=== PATIENT | female | born 1930 | race Caucasian/White ===

== ENCOUNTER 2016-11-18 09:28 | Inpatient (IN) | payer MEDICARE, SELFPAY ==
[2016-11-18] MEDS ORDERED: Sodium Chloride 0.9% 1000 ML 1,000 ML IV SCH ×2 (09:45→10:00)
--- NOTE | 2016-11-18 09:54 | ERPHSYRPT ---
- History of Present Illness Time Seen by Provider: 11/18/16 09:37 Source: patient Exam Limitations: no limitations Patient Subjective Stated Complaint: PT REPORTS INCEASED NONPRODUCTIVE COUGH BEGINNING A FEW DAYS [id number] THAT SHE HAS HX OF FALLING BUT DENIES RECENT FALLS-STATES IT IS HARD TO GET THE SPUTUM UP-PT STATES SHE FEELS VERY WEAK Triage Nursing Assessment: PT PINK WARM ET DRY-ALERT ANSWERING QUESTIONS CORRECTLY-HARSH COUGH NOTED DURING TRIAGE-LUNGS CLEAR-RESP NONLABORED-PT MOVING ALL EXTREMITIES WITH EASE Physician History: This is an 86-year-old white female who was recently released She arrives with complaint of having a constant cough which has been going on for 2 months she states that this is worse for the past 2-3 weeks she states it is nonproductive she cannot give anything up. She has had a sore throat. She states that she is extremely weak. She apparently could not get to the door to let the medics in today and had called the medics because of her weakness. She denies fever she denies chest pain she states she really doesn't feel short of breath but she continues to cough and feels extremely weak she has no nausea no vomiting. Past medical history includes cataracts, hypothyroidism, arthritis, fractures, osteoarthritis. Past surgical history includes right hip arthroplasy, cholecystectomy, joint replacement, right shoulder surgery Timing/Duration: week(s) (chronic cough worse at past 2-3 weeks weak for the past 2-3 weeks progressively worse) Severity: moderate Modifying Factors: Worsens With: cold therapy, eating, immobilization, medication, movement, acetaminophen, ibuprofen Associated Symptoms: cough, malaise, weakness, other (sore throat), No nausea, No vomiting, No abdominal pain, No shortness of breath, No heartburn, No diaphoresis, No chills, No chest pain, No fever, No headaches, No loss of appetite, No rash, No syncope, No seizure Allergies/Adverse Reactions: codeine Adverse Reaction (Verified 11/18/16 09:34) Nausea Home Medications: Alprazolam 0.25 mg [xanAX 0.25 MG] 0.25 mg PO TID 04/18/13 [History] Ropinirole HCl [Requip] 2 mg PO HS 04/18/13 [History] Tramadol HCl 50 mg [Ultram 50 mg] 50 mg PO BID 04/18/13 [History] Levothyroxine Sodium 75 Mcg [Synthroid 75 Mcg] 75 mcg PO DAILY 01/26/15 [ History] Duloxetine HCl 30 mg [Cymbalta 30 MG Capsule] 30 mg PO BID 11/18/16 [ History] Hx Tetanus, Diphtheria Vaccination/Date Given: No Hx Influenza Vaccination/Date Given: Yes Hx Pneumococcal Vaccination/Date Given: Yes - Review of Systems Constitutional: Malaise, Weakness, No Fever, No Chills, No Fatigue, No Lethargy , No Night Sweats, No Weight Loss Eyes: No Symptoms, No Discharge, No Eye Pain, No Eye Redness, No Itchy, No Photophobia, No Tearing, No Vision Changes, No Double Vision, No Foreign Body Sensation Ears, Nose, & Throat: No Ear Pain, No Ear Discharge, No Hearing Changes, No Tinnitus, No Nose Pain, No Nose Congestion, No Nose Discharge, No Sinus Drainage , No Epistaxis, No Mouth Pain, No Mouth Swelling, No Loose Teeth, No Throat Pain , No Throat Swelling, No Hoarse, No Painful Swallowing, No Snoring, No Stridor Respiratory: Cough, No Cyanosis, No Dyspnea, No Dyspnea on Exertion ([place]), No Stridor, No Wheezing Cardiac: No Chest Pain, No Edema, No Syncope Abdominal/Gastrointestinal: No Abdominal Pain, No Nausea, No Vomiting, No Diarrhea Genitourinary Symptoms: No Dysuria Musculoskeletal: No Back Pain, No Neck Pain Skin: No Rash Neurological: No Dizziness, No Focal Weakness, No Sensory Changes Psychological: No Symptoms Endocrine: No Symptoms All Other Systems: Reviewed and Negative - Past Medical History Pertinent Past Medical History: Yes Neurological History: No Pertinent History ENT History: Cataracts Cardiac History: No Pertinent History Respiratory History: Other Endocrine Medical History: Hypothyroidism Musculoskeletal History: Arthritis, Fractures, Osteoarthritis GI Medical History: No Pertinent History History: No Pertinent History Psycho-Social History: No Pertinent History Female Reproductive Disorders: No Pertinent History Other Medical History: dropfoot right foot - Past Surgical History Past Surgical History: Yes Neuro Surgical History: No Pertinent History Cardiac: No Pertinent History Respiratory: No Pertinent History Gastrointestinal: Cholecystectomy Genitourinary: No Pertinent History Musculoskeletal: Joint Replacement Female Surgical History: No Pertinent History Other Surgical History: R HIP. - Social History Smoking Status: Never smoker Exposure to second hand smoke: Yes Drug Use: none Patient Lives Alone: No - Female History Hx Now: No - Nursing Vital Signs Nursing Vital Signs: Initial Vital Signs Temperature 98.9 F Temperature Source Oral Pulse Rate 60 Respiratory Rate 22 Blood Pressure [] 126/59 Pain Intensity 0 - Physical Exam General Appearance: no apparent distress, other (well-developed thin white female does not appear to be in acute distress) Eye Exam: PERRL/EOMI, eyes nml inspection Ears, Nose, Throat Exam: normal ENT inspection, TMs normal, pharynx normal, moist mucous membranes Neck Exam: normal inspection, non-tender, supple, full range of motion Respiratory Exam: other (lungs scattered wheezes) Cardiovascular Exam: regular rate/rhythm, normal heart sounds, normal peripheral pulses Gastrointestinal/Abdomen Exam: soft, normal bowel sounds, No tenderness, No mass Back Exam: normal inspection, normal range of motion, No CVA tenderness, No vertebral tenderness Extremity Exam: normal inspection, normal range of motion, pelvis stable Neurologic Exam: alert, oriented x 3, cooperative, normal mood/affect, nml cerebellar function, nml station & gait, sensation nml, No motor deficits Skin Exam: normal color, warm, dry, No rash Lymphatic Exam: No adenopathy SpO2 Interpretation: normal (95%) SpO2: 95 Oxygen Delivery: Room Air - Course Nursing assessment & vital signs reviewed: Yes EKG Interpreted by Me: RATE (60 bpm), Sinus Rhythm, NORMAL AXIS, Other (EKG, normal sinus rhythm 60 bpm normal axis no acute ST or T wave changes noted) - Radiology Exams Chest X-ray Interpretation: Discussed w/ radiologist (no acute cardiopulmonary abnormalities) Ordered Tests: Active Orders 24 hr Category Date Time Status Slps STAT Care 11/18/16 09:45 Active EKG-ER Only STAT Care 11/18/16 09:44 Active IV Insertion STAT Care 11/18/16 09:44 Active CHEST 1 VIEW (PORTABLE) Stat Exams 11/18/16 09:45 Completed AMYLASE Stat Lab 11/18/16 10:16 Completed BLOOD CULTURE Stat Lab 11/18/16 12:05 Received CBC W DIFF Stat Lab 11/18/16 10:16 Completed CMP Stat Lab 11/18/16 10:16 Completed CULTURE, THROAT Stat Lab 11/18/16 10:16 Received CULTURE,URINE Stat Lab 11/18/16 11:10 Received LIPASE Stat Lab 11/18/16 10:16 Completed Manual Differential NC Stat Lab 11/18/16 10:16 Completed NT PRO BNP Stat Lab 11/18/16 10:16 Completed STREP SCREEN-BETA A Stat Lab 11/18/16 10:16 Completed TROPONIN Stat Lab 11/18/16 10:16 Completed UA W/ MICROSCOPIC Stat Lab 11/18/16 11:10 Completed Transfer Order Routine Transfer 11/18/16 12:41 Ordered Medication Summary Generic Name Dose Route Start Last Admin Trade Name Freq PRN Reason Stop Dose Admin Sodium Chloride 1,000 mls @ 50 mls/hr 11/18/16 09:45 11/18/16 09:49 Sodium Chloride 0.9% 1000 Ml IV 12/18/16 09:44 Not Given .Q20H PACO Sodium Chloride 1,000 mls @ 75 mls/hr 11/18/16 10:00 11/18/16 11:04 Sodium Chloride 0.9% 1000 Ml IV 12/18/16 09:59 75 mls/hr .[id number] PACO Administration Discontinued Medications Generic Name Dose Route Start Last Admin Trade Name Freq PRN Reason Stop Dose Admin Sodium Chloride Confirm 11/18/16 11:03 Sodium Chloride 0.9% 1000 Ml Administered 11/18/16 11:04 Dose 1,000 mls @ ud .ROUTE .STK-MED ONE Ceftriaxone Sodium/Dextrose 50 mls @ 100 mls/hr 11/18/16 11:52 11/18/16 12:11 Rocephin 1 Gm-D5w 50 Ml Bag IV 11/18/16 12:21 100 mls/hr STAT ONE Administration Ceftriaxone Sodium/Dextrose Confirm 11/18/16 12:07 Rocephin 1 Gm-D5w 50 Ml Bag Administered 11/18/16 12:08 Dose 50 mls @ ud IV .STK-MED ONE Lab/Rad Data: Laboratory Result Diagrams 11/18/16 10:16 11/18/16 10:16 Laboratory Results 11/18/16 11/18/16 11/18/16 Range/Units 11:10 10:16 10:16 WBC (4.0-10.5) K/mm3 RBC (4.1-5.4) M/mm3 Hgb (12.0-16.0) gm/dl Hct (35-47) % MCV (78-100) fl MCH (26-32) pg MCHC (32-36) g/dl RDW (11.5-14.0) % Plt Count (150-450) K/mm3 MPV (6-9.5) fl Segmented Neutrophils (36.0-66.0) % Band Neutrophils (0.0-2.0) % Lymphocytes (Manual) (24-44) % Monocytes (Manual) (0.0-12.0) % Eosinophils (Manual) (0.00-3.0) % Differential Comment Platelet Estimate (NORMAL) Sodium (136-145) mEq/L Potassium (3.5-5.1) mEq/L Chloride (98-107) mEq/L Carbon Dioxide (21-32) mEq/L Anion Gap (5-15) MEQ/L BUN (9-20) mg/dL Creatinine (0.55-1.30) mg/dl Estimated GFR ML/MIN Glucose (70-110) MG/DL Calcium (8.5-10.1) mg/dL Total Bilirubin (0.2-1.0) mg/dL AST (15-37) U/L ALT (12-78) U/L Alkaline Phosphatase (46-116) U/L Troponin I (0.000-0.056) ng/ml NT-Pro-B Natriuret Pep (0-450) pg/ml Serum Total Protein (6.4-8.2) gm/dL Albumin (3.4-5.0) g/dL Amylase (25-115) U/L Lipase (73-393) U/L Ur Collection Type VOID Urine Color YELLOW (YELLOW) Urine Appearance CLOUDY (CLEAR) Urine pH 6.0 (5-6) Ur Specific [place] 1.025 (1.005-1.025) Urine Protein TRACE (Negative) Urine Glucose (UA) NEGATIVE (NEGATIVE) mg/dL Urine Ketones NEGATIVE (NEGATIVE) Urine Nitrite POSITIVE (NEGATIVE) Urine Bilirubin NEGATIVE (NEGATIVE) Urine Urobilinogen 1 (0-1) mg/dL Urine WBC (Auto) SMALL (NEGATIVE) Urine RBC (Auto) TRACE-INTACT (0-5) [place]/ul Urine Microscopic RBC 0-2 (0-2) /HPF Urine Microscopic WBC 25-50 (0-5) /HPF Ur Epithelial Cells RARE (FEW) /HPF Urine Bacteria MANY (NEGATIVE) /HPF Influenza Type A Ag NEGATIVE (NEGATIVE) Influenza Type B Ag NEGATIVE (NEGATIVE) RSV (PCR) POSITIVE (Negative) Streptococcus Screen NEGATIVE (Negative) Specimen Received 11/18/16 1110 11/18/16 11/18/16 11/18/16 Range/Units 10:16 10:16 10:16 WBC 5.3 (4.0-10.5) K/mm3 RBC 4.25 (4.1-5.4) M/mm3 Hgb 11.6 L (12.0-16.0) gm/dl Hct 37.4 (35-47) % MCV 88.0 (78-100) fl MCH 27.2 (26-32) pg MCHC 31.0 L (32-36) g/dl RDW 15.8 H (11.5-14.0) % Plt Count 235 (150-450) K/mm3 MPV 8.8 (6-9.5) fl Segmented Neutrophils 51 (36.0-66.0) % Band Neutrophils 1 (0.0-2.0) % Lymphocytes (Manual) 41 (24-44) % Monocytes (Manual) 2 (0.0-12.0) % Eosinophils (Manual) 5 H (0.00-3.0) % Differential Comment NORMAL Platelet Estimate NORMAL (NORMAL) Sodium 138 (136-145) mEq/L Potassium 3.9 (3.5-5.1) mEq/L Chloride 103 (98-107) mEq/L Carbon Dioxide 29.1 (21-32) mEq/L Anion Gap 10.2 (5-15) MEQ/L BUN 14 (9-20) mg/dL Creatinine 1.09 (0.55-1.30) mg/dl Estimated GFR 50 ML/MIN Glucose 89 (70-110) MG/DL Calcium 8.2 L (8.5-10.1) mg/dL Total Bilirubin 0.2 (0.2-1.0) mg/dL AST 22 (15-37) U/L ALT 10 L (12-78) U/L Alkaline Phosphatase 112 (46-116) U/L Troponin I < 0.017 (0.000-0.056) ng/ml NT-Pro-B Natriuret Pep 785 H (0-450) pg/ml Serum Total Protein 7.0 (6.4-8.2) gm/dL Albumin 2.9 L (3.4-5.0) g/dL Amylase 61 (25-115) U/L Lipase 147 (73-393) U/L Ur Collection Type Urine Color (YELLOW) Urine Appearance (CLEAR) Urine pH (5-6) Ur Specific [place] (1.005-1.025) Urine Protein (Negative) Urine Glucose (UA) (NEGATIVE) mg/dL Urine Ketones (NEGATIVE) Urine Nitrite (NEGATIVE) Urine Bilirubin (NEGATIVE) Urine Urobilinogen (0-1) mg/dL Urine WBC (Auto) (NEGATIVE) Urine RBC (Auto) (0-5) Denilson/ul Urine Microscopic RBC (0-2) /HPF Urine Microscopic WBC (0-5) /HPF Ur Epithelial Cells (FEW) /HPF Urine Bacteria (NEGATIVE) /HPF Influenza Type A Ag (NEGATIVE) Influenza Type B Ag (NEGATIVE) RSV (PCR) (Negative) Streptococcus Screen (Negative) Specimen Received - Progress Progress: improved Progress Note: 11/18/16 12:07 Patient breathing better after DuoNeb treatment. Patient with 25-50 white cells per high-power field. Patient also had a positive RSV test negative influenza. Case is discussed with Dr. Kahn. She requested physical therapy consult with this patient. (Patient has been worried about falling) Will place patient on observation telemetry continue Rocephin, begin Zithromax. Continue duo neb treatments. - Departure Time of Disposition: 12:08 Departure Disposition: Observation Clinical Impression: Weakness, Bronchitis UTI (urinary tract infection) Qualifiers: Urinary tract infection type: site unspecified Hematuria presence: without hematuria Qualified Code(s): N39.0 - Urinary tract infection, site not specified Condition: Fair Critical Care Time: No Referrals: ANUEL KAHN [Primary Care Provider] -
--- NOTE | 2016-11-18 10:08 | XRAY ---
Indication: Cough. Comparison: January 26, 2015. Portable chest clear again with right lung volume loss, right base scarring, osteopenia, and old right rib fractures. Heart is not enlarged. No new/acute cardiopulmonary abnormalities.
[2016-11-18 10:21] LABS: Mean Platelet Volume 8.8 fl (6-9.5); Platelet Count 235 K/mm3 (150-450); Red Blood Count 4.25 M/mm3 (4.1-5.4); Red Cell Distribution Width 15.8 % (11.5-14.0); White Blood Count 5.3 K/mm3 (4.0-10.5)
[2016-11-18 10:38] LABS: Mean Corpuscular Hemoglobin 27.2 pg (26-32)
[2016-11-18 10:41] LABS: ALBUMIN 2.9 g/dL (3.4-5.0); ALKALINE PHOSPHATASE 112 U/L (46-116); ANION GAP 10.2 MEQ/L (5-15); BILIRUBIN,TOTAL 0.2 mg/dL (0.2-1.0); BLOOD UREA NITROGEN 14 mg/dL (9-20); CHLORIDE 103 mEq/L (98-107); Carbon Dioxide 29.1 mEq/L (21-32); Glucose 89 MG/DL (70-110); LIPASE 147 U/L (73-393); Potassium 3.9 mEq/L (3.5-5.1); SGOT/AST 22 U/L (15-37); SGPT/ALT 10 U/L (12-78); SODIUM 138 mEq/L (136-145)
[2016-11-18 10:46] LABS: TROPONIN < 0.017 ng/ml (0.000-0.056)
[2016-11-18 10:47] LABS: BAND 1 % (0.0-2.0); Eosinophil 5 % (0.00-3.0); Platelet Estimate NORMAL (NORMAL); Total Cells Counted 100
[2016-11-18] MEDS ORDERED: Sodium Chloride 0.9% 1000 ML 1,000 ML ONE (11:03)
[2016-11-18 11:14] LABS: COMPLETE URINE MICROSCOPIC? YES; Collection Type VOID
[2016-11-18 11:33] LABS: Bacteria MANY /HPF (NEGATIVE); Epithelial Cells RARE /HPF (FEW); WBC 25-50 /HPF (0-5)
[2016-11-18] MEDS ORDERED: ROCEPHIN 1 Gm-D5w 50 ml Bag** 50 ML IV ONE ×2 (11:52→12:07)
[2016-11-18] MEDS ORDERED: DUONEB 0.5-3 MG/3 ml Neb IH PRN (13:15)
[2016-11-18] MEDS: Sodium Chloride 0.9% 1000 ML 1,000 ML IV SCH (14:20)
[2016-11-18] MEDS: Zithromax 500 MG/ 250 ML NaCl Premix 250 ML IV SCH (14:20)
[2016-11-18] MEDS ORDERED: ULTRAM 50 MG PO PRN (17:13)
[2016-11-18] MEDS ORDERED: HYDROCODONE-ACETAMIN 2.5-108/5 ML SOLUTION PO PRN (17:15)
[2016-11-18] MEDS: xanAX 0.25 MG PO PRN (20:45)
[2016-11-18] MEDS ORDERED: ROPINIROLE HCL 3 MG PO SCH (22:00)
[2016-11-18] MEDS: REQUIP 2MG TAB PO SCH (22:08)
[2016-11-18] MEDS: Cymbalta 30 MG Capsule PO SCH (22:09)
[2016-11-19] MEDS: ZOFRAN ODT 4 MG PO PRN ×3 (01:11→13:22)
[2016-11-19] MEDS: xanAX 0.25 MG PO PRN ×2 (05:22→14:34)
[2016-11-19] MEDS: SYNTHROID 75 MCG PO SCH (05:22)
[2016-11-19 05:38] LABS: Mean Cell Volume 87.5 fl (78-100); Mean Platelet Volume 9.1 fl (6-9.5); Platelet Count 207 K/mm3 (150-450); Red Blood Count 3.99 M/mm3 (4.1-5.4); Red Cell Distribution Width 15.4 % (11.5-14.0); White Blood Count 4.6 K/mm3 (4.0-10.5)
[2016-11-19 05:57] LABS: ALBUMIN 2.6 g/dL (3.4-5.0); ALKALINE PHOSPHATASE 106 U/L (46-116); ANION GAP 10.4 MEQ/L (5-15); BILIRUBIN,TOTAL 0.2 mg/dL (0.2-1.0); BLOOD UREA NITROGEN 9 mg/dL (9-20); CHLORIDE 105 mEq/L (98-107); Carbon Dioxide 24.2 mEq/L (21-32); Glucose 105 MG/DL (70-110); Potassium 3.8 mEq/L (3.5-5.1); SGOT/AST 22 U/L (15-37); SGPT/ALT 7 U/L (12-78); SODIUM 136 mEq/L (136-145); Total Protein 6.5 gm/dL (6.4-8.2)
[2016-11-19 06:39] LABS: Platelet Estimate NORMAL (NORMAL); Poikilocytosis 1+; Total Cells Counted 100
--- NOTE | 2016-11-19 09:09 | PCM.HP ---
History of Present Illness - Chief Complaint Chief Complaint: UTI, weakness, cough, +RSV History of Present Illness: is a 86 year old female pt of mine from [facility] who has been feeling ill for the past 2 weeks with cough and weakness. She has not been eating well. She called the office yesterday, was unable to get out of bed. Nurse called police/EMS and she was brought to the ER and admitted. Found to be influenza neg but RSV +. - Review of Systems Constitutional: Chills, Fatigue Ears, Nose, & Throat: Other ([place]) Respiratory: Cough Cardiac: No Chest Pain Abdominal/Gastrointestinal: Appetite Changes Musculoskeletal: Arthralgias (hands bilat) Psychological: Anxiety, No Suicidal Ideations Medications & Allergies Home Medications: Home Medication List Alprazolam 0.25 mg [xanAX 0.25 MG] 0.25 mg PO TID PRN 04/18/13 [History Confirmed 11/18/16] Ropinirole HCl [Requip] 3 mg PO HS 04/18/13 [History Confirmed 11/18/16] Tramadol HCl 50 mg [Ultram 50 mg] 50 mg PO BID PRN 04/18/13 [History Confirmed 11/18/16] Levothyroxine Sodium 75 Mcg [Synthroid 75 Mcg] 75 mcg PO DAILY 01/26/15 [ History Confirmed 11/18/16] Duloxetine HCl 30 mg [Cymbalta 30 MG Capsule] 30 mg PO BID 11/18/16 [ History Confirmed 11/18/16] Hydrocodone/Acetaminophen [Hydrocodone-Acetamin 2.5-108/5 ml Solution] 15 ml PO TID PRN 11/18/16 [History Confirmed 11/18/16] Ondansetron [Zofran Odt] 4 mg SL Q4H PRN 11/18/16 [History Confirmed 11/18/16] Allergies/Adverse Reactions: Allergies Allergy/AdvReac Type Severity Reaction Status Date / Time codeine AdvReac Nausea Verified 11/18/16 09:34 - Past Medical History Past Medical History: Yes Neurological History: No Pertinent History ENT History: Cataracts Cardiac History: No Pertinent History Respiratory History: Other Endocrine Medical History: Hypothyroidism Musculoskelatal History: Arthritis, Fractures, Osteoarthritis GI Medical History: No Pertinent History History: No Pertinent History Pyscho-Social History: No Pertinent History Reproductive Disorders: No Pertinent History Comment: dropfoot right foot - Female History Are you now?: No - Past Surgical History Past Surgical History: Yes Neuro Surgical History: No Pertinent History Cardiac History: No Pertinent History Respiratory Surgery: No Pertinent History GI Surgical History: Cholecystectomy Genitourinary Surgical Hx: No Pertinent History Musculskeletal Surgical Hx: Joint Replacement Female Surgical History: No Pertinent History Other Surgical History: R HIP. - Social History Smoking Status: Never smoker Exposure to second hand smoke: Yes Alcohol: None Drug Use: none - Physical Exam Vital Signs: Vital Signs - 24 hr Temp Pulse Resp BP Pulse Ox 11/19/16 07:54 98.1 F 76 18 141/66 94 L 11/19/16 07:15 77 20 94 L 11/19/16 04:00 98.4 F 72 20 132/86 99 11/19/16 02:11 98 11/19/16 00:06 89 L 11/19/16 00:00 98.6 F 72 20 132/82 95 11/18/16 20:00 98.8 F 80 20 127/90 89 L 11/18/16 16:00 97.5 F 63 16 143/63 96 11/18/16 15:24 70 16 96 11/18/16 13:47 98.1 F 61 16 135/60 93 L 11/18/16 12:45 95 11/18/16 12:11 60 22 126/59 96 11/18/16 10:24 64 22 125/57 95 11/18/16 09:29 98.9 F 67 22 134/46 95 Oxygen-Last 24 hours O2 Percentage 4 Liters = 36% General Appearance: no apparent distress, thin Neurologic Exam: alert, oriented x 3, cooperative, other ([place]) Eye Exam: eyes nml inspection Neck Exam: normal inspection Respiratory Exam: diminished breath sounds, No crackles/rales, No rhonchi, No wheezing Cardiovascular Exam: regular rate/rhythm, normal heart sounds, murmur (II/ sys murmur) Gastrointestinal/Abdomen Exam: soft, normal bowel sounds, No tenderness, No distention, No guarding Extremity Exam: normal inspection, No pedal edema, No swelling Skin Exam: normal color, warm, dry, No rash Results - Labs Lab/Micro Results: Lab Results-Last 24 Hours 11/19/16 11/19/16 Range/Units 05:15 05:15 WBC 4.6 (4.0-10.5) K/mm3 RBC 3.99 L (4.1-5.4) M/mm3 Hgb 10.8 L (12.0-16.0) gm/dl Hct 34.9 L (35-47) % MCV 87.5 (78-100) fl MCH 27.0 (26-32) pg MCHC 30.9 L (32-36) g/dl RDW 15.4 H (11.5-14.0) % Plt Count 207 (150-450) K/mm3 MPV 9.1 (6-9.5) fl Segmented Neutrophils 81 H (36.0-66.0) % Lymphocytes (Manual) 18 L (24-44) % Monocytes (Manual) 1 (0.0-12.0) % Platelet Estimate NORMAL (NORMAL) Poikilocytosis 1+ Sodium 136 (136-145) mEq/L Potassium 3.8 (3.5-5.1) mEq/L Chloride 105 (98-107) mEq/L Carbon Dioxide 24.2 (21-32) mEq/L Anion Gap 10.4 (5-15) MEQ/L BUN 9 (9-20) mg/dL Creatinine 0.80 (0.55-1.30) mg/dl Estimated GFR > 60 ML/MIN Glucose 105 (70-110) MG/DL Calcium 8.2 L (8.5-10.1) mg/dL Total Bilirubin 0.2 (0.2-1.0) mg/dL AST 22 (15-37) U/L ALT 7 L (12-78) U/L Alkaline Phosphatase 106 (46-116) U/L Serum Total Protein 6.5 (6.4-8.2) gm/dL Albumin 2.6 L (3.4-5.0) g/dL - Other Procedures and Tests Respiratory Therapy 11/18/16 15:21 Respiratory Nebulizer UD 11/19/16 00:06 Oxygen NASAL CANNULA 2 lpm Assessment/Plan (1) UTI (urinary tract infection) Current Visit: Yes Status: Acute Qualifiers: Urinary tract infection type: site unspecified Hematuria presence: without hematuria Qualified Code(s): N39.0 - Urinary tract infection, site not specified Assessment & Plan: ON IV rocephin, UCx pending. Code(s): N39.0 - URINARY TRACT INFECTION, SITE NOT SPECIFIED (2) Bronchitis Current Visit: Yes Status: Acute Assessment & Plan: Added zithromax to rocephin in the case of atypical pneumonia. Code(s): J40 - BRONCHITIS, NOT SPECIFIED ACUTE OR CHRONIC (3) Weakness Current Visit: Yes Status: Acute Assessment & Plan: PT to consult. Code(s): R53.1 - WEAKNESS
[2016-11-19] MEDS: Cymbalta 30 MG Capsule PO SCH ×2 (09:47→21:40)
[2016-11-19] MEDS: ROCEPHIN 1 Gm-D5w 50 ml Bag** 50 ML IV SCH (09:47)
[2016-11-19] MEDS: xanAX 0.5 MG PO SCH ×2 (09:48→21:41)
[2016-11-19] MEDS: Zithromax 500 MG/ 250 ML NaCl Premix 250 ML IV SCH (13:22)
[2016-11-19] MEDS: Sodium Chloride 0.9% 1000 ML 1,000 ML IV SCH (13:26)
[2016-11-19] MEDS: REQUIP 2MG TAB PO SCH (21:39)
[2016-11-20] MEDS: Sodium Chloride 0.9% 1000 ML 1,000 ML IV SCH ×2 (05:45→22:54)
[2016-11-20] MEDS: SYNTHROID 75 MCG PO SCH (05:45)
[2016-11-20] MEDS: ROCEPHIN 1 Gm-D5w 50 ml Bag** 50 ML IV SCH (10:35)
[2016-11-20] MEDS: Cymbalta 30 MG Capsule PO SCH ×2 (10:35→22:54)
--- NOTE | 2016-11-20 11:23 | PCM.NOTE ---
Date and Time: 11/20/16 1121 Subjective Assessment: She is breathing better today, feeling better. Yesterday didn't feel well enough to do PT. - Review of Systems Constitutional: Weakness, No Fever, No Chills Objective Exam General Appearance: no apparent distress Neurologic Exam: alert, oriented x 3, cooperative Skin Exam: normal color, warm, dry Respiratory Exam: diminished breath sounds, No crackles/rales, No rhonchi, No wheezing Cardiovascular Exam: regular rate/rhythm, normal heart sounds Extremity Exam: No pedal edema, No swelling Back Exam: normal inspection OBJECTIVE DATA Vital Signs: Vital Signs - 24 hr Temp Pulse Resp BP Pulse Ox 11/20/16 07:38 98.3 F 68 20 121/91 97 11/20/16 07:00 97 11/20/16 04:00 98.3 F 76 20 135/65 95 11/20/16 00:00 98.4 F 63 22 124/63 94 L 11/19/16 22:20 63 22 94 L 11/19/16 20:00 98.6 F 58 L 20 121/57 98 11/19/16 16:00 98.2 F 74 17 124/60 96 11/19/16 12:00 97.8 F 73 19 148/64 92 L Pain Assessment - Last Documented Pain Intensity 0 Pain Scale Used 0-10 Pain Scale Intake and Output: Intake & Output 11/17/16 11/18/16 11/19/16 11/20/16 11:59 11:59 11:59 11:59 Intake Total 2854 2643 Output Total 1800 500 Balance 1054 2143 Weight 46.748 kg Assessment/Plan (1) UTI (urinary tract infection) Current Visit: Yes Status: Acute Qualifiers: Urinary tract infection type: site unspecified Hematuria presence: without hematuria Qualified Code(s): N39.0 - Urinary tract infection, site not specified Assessment & Plan: on IV antibiotics, doing better Code(s): N39.0 - URINARY TRACT INFECTION, SITE NOT SPECIFIED (2) Bronchitis Current Visit: Yes Status: Acute Assessment & Plan: improved Code(s): J40 - BRONCHITIS, NOT SPECIFIED ACUTE OR CHRONIC (3) Weakness Current Visit: Yes Status: Acute Assessment & Plan: would like PT opinion, if she is doing ok would be able to d/c, but may be another few days. Code(s): R53.1 - WEAKNESS
[2016-11-20] MEDS: Zithromax 500 MG/ 250 ML NaCl Premix 250 ML IV SCH (13:25)
[2016-11-20] MEDS: xanAX 0.25 MG PO PRN (14:42)
[2016-11-20] MEDS: REQUIP 2MG TAB PO SCH (22:54)
[2016-11-20] MEDS: xanAX 0.5 MG PO SCH (22:54)
[2016-11-21] MEDS: SYNTHROID 75 MCG PO SCH (06:06)
[2016-11-21] MEDS: ROCEPHIN 1 Gm-D5w 50 ml Bag** 50 ML IV SCH (08:16)
[2016-11-21] MEDS: Cymbalta 30 MG Capsule PO SCH (08:16)
--- NOTE | 2016-11-21 08:49 | PCM.NOTE ---
Date and Time: 11/21/16 0845 Subjective Assessment: Pt did well with PT yesterday. She is feeling well, sergey po well, breathing well. Her urine culture results were delayed, and her blood culture came back positive (results pending). - Review of Systems Constitutional: No Fever, No Chills Respiratory: Cough Objective Exam General Appearance: no apparent distress Neurologic Exam: alert, oriented x 3, cooperative Skin Exam: normal color, warm, dry Respiratory Exam: diminished breath sounds, No crackles/rales, No rhonchi, No wheezing Cardiovascular Exam: regular rate/rhythm, normal heart sounds Extremity Exam: No pedal edema, No swelling OBJECTIVE DATA Vital Signs: Vital Signs - 24 hr Temp Pulse Resp BP Pulse Ox 11/21/16 07:54 75 18 95 11/21/16 04:00 97.9 F 78 18 167/79 95 11/21/16 00:00 97.5 F 66 18 179/74 94 L 11/20/16 20:40 61 20 95 11/20/16 20:00 97.9 F 61 20 137/60 95 11/20/16 15:46 97.9 F 60 18 132/56 95 11/20/16 11:53 98.3 F 64 20 140/70 97 Pain Assessment - Last Documented Pain Scale Used [facility] Intake and Output: Intake & Output 11/18/16 11/19/16 11/20/16 11/21/16 11:59 11:59 11:59 11:59 Intake Total 2819 Output Total 1650 Balance 1169 Assessment/Plan (1) UTI (urinary tract infection) Current Visit: Yes Status: Acute Qualifiers: Urinary tract infection type: site unspecified Hematuria presence: without hematuria Qualified Code(s): N39.0 - Urinary tract infection, site not specified Assessment & Plan: urine culture results to be faxed to me today. Code(s): N39.0 - URINARY TRACT INFECTION, SITE NOT SPECIFIED (2) Bronchitis Current Visit: Yes Status: Acute Assessment & Plan: much better. RSV +. Code(s): J40 - BRONCHITIS, NOT SPECIFIED ACUTE OR CHRONIC (3) Weakness Current Visit: Yes Status: Acute Assessment & Plan: Doing very well per PT. Code(s): R53.1 - WEAKNESS (4) Bacteremia Current Visit: Yes Status: Acute Assessment & Plan: Await pending culture results today. Code(s): R78.81 - BACTEREMIA
[2016-11-21] MEDS: Zithromax 500 MG/ 250 ML NaCl Premix 250 ML IV SCH (13:49)
[2016-11-21] MEDS: Sodium Chloride 0.9% 1000 ML 1,000 ML IV SCH (14:22)
--- NOTE | 2016-11-21 15:57 | PCM.DS ---
Discharge Summary Date of Admission: 11/20/16 11:21 Admitting Physician: ANUEL QUIROGA Primary Care Provider: ANUEL QUIROGA Allergies Allergies codeine Adverse Reaction (Verified 11/18/16 09:34) Nausea Hospital Summary - Hospital Course Hospital Course: Pt admitted with URI and weakness, also found to have respiratory illness, RSV + . She was placed on IV rocephin and improved steadily. PT evaluated her strength and gait and pt was doing well. She did have a Gram + fidelina on one bottle of blood culture - it is pending at outside lab. Urine culture grew Klebsiella pneumoniae which was susceptible to first and third generation cephalosporins. Pt to be discharged to home. - Vitals & Intake/Output Vital Signs: Vital Signs Temperature 97.9 F 11/21/16 11:23 Pulse Rate 70 11/21/16 11:23 Respiratory Rate 14 11/21/16 11:23 Blood Pressure 164/66 11/21/16 11:23 O2 Sat by Pulse Oximetry 95 11/21/16 11:23 Oxygen-Last Documented O2 Percentage 4 Liters = 36% Intake & Output: Intake & Output 11/19/16 11/20/16 11/21/16 11/22/16 11:59 11:59 11:59 11:59 Intake Total 3299 120 Output Total 1650 Balance 1649 120 - Lab Result Diagrams: 11/19/16 05:15 11/19/16 05:15 Discharge Exam General Appearance: no apparent distress, other (Pt was examined this morning.) Neurologic Exam: alert, cooperative Skin Exam: normal color, warm, dry Respiratory Exam: diminished breath sounds, No crackles/rales, No rhonchi, No wheezing Cardiovascular Exam: regular rate/rhythm, normal heart sounds Extremity Exam: normal inspection, No pedal edema, No swelling Final Diagnosis/Problem List - Final Discharge Diagnosis/Problem (1) UTI (urinary tract infection) Current Visit: Yes Status: Acute Assessment & Plan: Treated with rocephiN iv for 5d which certainly should have been adequate. (2) Bacteremia Current Visit: Yes Status: Acute Assessment & Plan: I spoke with the lab, there is a possibility this is contamination, but will go head and tx for Bacillus species pending culture results. Untreated bacteremia could be a serious and deadly illness for this patient. Cipro for patient at home. She is to call immediately and stop taking the med if any increased joint pain, particularly foot or ankle pain. (3) Bronchitis Current Visit: Yes Status: Acute Assessment & Plan: RSV +. Pt is feeling much better. Has been in isolation here in the hospital. (4) Weakness Current Visit: Yes Status: Acute Assessment & Plan: improved; pt is moving around well. - Discharge Disposition: Home, Self-Care Condition: Fair Prescriptions: New Clindamycin Palmitate HCl [Clindamycin Pediatric] 150 mg PO TID #120 ml Continue Ropinirole HCl [Requip] 3 mg PO HS Tramadol HCl 50 mg [Ultram 50 mg] 50 mg PO BID PRN PRN Reason: Pain Alprazolam 0.25 mg [xanAX 0.25 MG] 0.25 mg PO TID PRN PRN Reason: Anxiety Levothyroxine Sodium 75 Mcg [Synthroid 75 Mcg] 75 mcg PO DAILY Duloxetine HCl 30 mg [Cymbalta 30 MG Capsule] 30 mg PO BID Ondansetron [Zofran Odt] 4 mg SL Q4H PRN PRN Reason: Nausea Hydrocodone/Acetaminophen [Hydrocodone-Acetamin 2.5-108/5 ml Solution] 15 ml PO TID PRN Follow up with: ANUEL QUIROGA [Primary Care Provider] -
[2016-11-21] MEDS: xanAX 0.25 MG PO PRN (16:04)
[2016-11-21 16:50] VITALS: BP 169/80; PULSE 73; O2SAT 96
== END 2016-11-21 18:10 | disposition home or self-care (01) | DRG 690 ==
LOC: ED 09:28 → MED SURG 13:14 → OBSVTOIN 11-20 11:21
PROVIDERS: ADMIT Family Medicine; ATTEND Family Medicine
DX: N39.0 Urinary tract infection, site not specified (principal); R78.81 Bacteremia; J40 Bronchitis, not specified as acute or chronic; R53.1 Weakness; E03.9 Hypothyroidism, unspecified; M19.90 Unspecified osteoarthritis, unspecified site; J22 Unspecified acute lower respiratory infection; B97.4 Respiratory syncytial virus as the cause of diseases classified elsewhere; Z79.899 Other long term (current) drug therapy
CPT/HCPCS: 36415; 71010; 80053; 81000; 82150; 83690; 83880; 84484; 85025; 87040; 87070; 87077; 87086; 87186; 87430; 87631; 93005; 93041; 93268; 94760; 94762; 96360; 96361; 96365; 99283; 99285; G0378; J0456; J0696; Q0162

== ENCOUNTER 2017-06-12 02:06 | Emergency (ER) | payer MEDICARE, SELFPAY ==
[2017-06-12] MEDS ORDERED: MORPHINE SULFATE 2 MG INJ IV ONE (02:22)
[2017-06-12] MEDS ORDERED: Zofran 4 MG/2 ML VIAL IV ONE (02:22)
--- NOTE | 2017-06-12 02:29 | ERPHSYRPT ---
- History of Present Illness Time Seen by Provider: 06/12/17 02:23 Source: patient, EMS Exam Limitations: no limitations Physician History: 86-year-old white female brought by medics with complaint of pain in her thoracic and lower back after falling. Patient states that she fell striking her back onto a bed rail. Patient has moderately severe pain in her back she states she hurts whenever she tries to move. She has no shortness of breath she has no chest pain. Patient apparently fell 4 days ago and had actually been to a physician in [place]. However she states that she began having severe pain in her back and trouble moving worse today. Past medical history includes cataracts, hypothyroidism, arthritis, fractures, osteoarthritis, dropfoot right foot. 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 Past surgical history includes cholecystectomy, joint replacement (right hip) Occurred: days ago ( days ago) Reason for Fall: lost balance (FELL BACKWARDS AND STRUCK HER BACK ) Injuries/Pain Location: chest (POSTERIOR RIBS LOW THORACIC REGION AND UPPER LUMBAR REGION) Loss of Consciousness: no loss of consciousness Quality: aching Severity of Pain-Max: moderate Severity of Pain-Current: moderate Modifying Factors: Improves With: movement Associated Symptoms (Fall): back pain, other (Pain posterior ribs), No abdominal pain, No confusion, No dizziness, No extremity injury, No headache, No lightheadedness, No muscle spasms, No nausea, No neck pain, No ringing in ears, No seizures, No shortness of breath, No slurred speech, No trouble walking , No vomiting, No vision changes Allergies/Adverse Reactions: codeine Adverse Reaction (Verified 06/12/17 04:32) Nausea Home Medications: Alprazolam 0.25 mg [xanAX 0.25 MG] 0.25 mg PO TID PRN 04/18/13 [History] Ropinirole HCl [Requip] 3 mg PO HS 04/18/13 [History] Tramadol HCl 50 mg [Ultram 50 mg] 50 mg PO BID PRN 04/18/13 [History] Levothyroxine Sodium 75 Mcg [Synthroid 75 Mcg] 75 mcg PO DAILY 01/26/15 [ History] Duloxetine HCl 30 mg [Cymbalta 30 MG Capsule] 30 mg PO BID 11/18/16 [ History] Hydrocodone/Acetaminophen [Hydrocodone-Acetamin 2.5-108/5 ml Solution] 15 ml PO TID PRN 11/18/16 [History] Ondansetron [Zofran Odt] 4 mg SL Q4H PRN 11/18/16 [History] Hx Tetanus, Diphtheria Vaccination/Date Given: No Hx Influenza Vaccination/Date Given: Yes Hx Pneumococcal Vaccination/Date Given: Yes - Review of Systems Constitutional: No Fever, No Chills Eyes: No Symptoms Ears, Nose, & Throat: No Symptoms Respiratory: No Cough, No Dyspnea Cardiac: No Chest Pain, No Edema, No Syncope Abdominal/Gastrointestinal: No Abdominal Pain, No Nausea, No Vomiting, No Diarrhea Genitourinary Symptoms: No Dysuria Musculoskeletal: Back Pain (pain low thoracic and upper lumbar region), Other ( pain posterior ribs) Skin: No Rash Neurological: No Dizziness, No Focal Weakness, No Sensory Changes Psychological: No Symptoms Endocrine: No Symptoms All Other Systems: Reviewed and Negative - Past Medical History Pertinent Past Medical History: Yes Neurological History: No Pertinent History ENT History: Cataracts Cardiac History: No Pertinent History Respiratory History: Other Endocrine Medical History: Hypothyroidism Musculoskeletal History: Arthritis, Fractures, Osteoarthritis GI Medical History: No Pertinent History History: No Pertinent History Psycho-Social History: No Pertinent History Female Reproductive Disorders: No Pertinent History Other Medical History: dropfoot right foot - Past Surgical History Past Surgical History: Yes Neuro Surgical History: No Pertinent History Cardiac: No Pertinent History Respiratory: No Pertinent History Gastrointestinal: Cholecystectomy Genitourinary: No Pertinent History Musculoskeletal: Joint Replacement Female Surgical History: No Pertinent History Other Surgical History: R HIP. - Social History Smoking Status: Never smoker Exposure to second hand smoke: Yes Drug Use: none Patient Lives Alone: No - Female History Hx Now: No - Nursing Vital Signs Nursing Vital Signs: Initial Vital Signs Temperature 97.3 F 06/12/17 02:29 Pulse Rate 67 06/12/17 02:29 Respiratory Rate 18 06/12/17 02:29 Blood Pressure 152/61 06/12/17 02:29 O2 Sat by Pulse Oximetry 96 06/12/17 02:29 Pain Scale Pain Intensity 3 - [place]vin Coma Score Best Eye Response ([place]vin): (4) open spontaneously Best Verbal Response ([place]): (5) oriented Best Motor Response (Delvin): (6) obeys commands Delvin Total: 15 - Physical Exam General Appearance: other (elderly-appearing white female alert oriented 3) Head Injury: no evidence of injury Eye Exam: PERRL/EOMI, other (patient with chronic erythema and drainage to right eye) ENT Exam: airway nml, other (patient has esscar on her right face from previous surgery) Neck Exam: full range of motion, normal inspection, other (no neck tenderness), No tenderness Respiratory/Chest Exam: normal breath sounds, other (pain posterior ribs bilaterally with palpation) Cardiovascular Exam: normal heart sounds, regular rate/rhythm Gastrointestinal Exam: soft, No tenderness, No distention, No guarding, No ecchymosis Extremity Exam: other (back is tender with palpation low thorasic region and upper lumbar region), No normal range of motion (decreased range of motion to the back secondary to pain) Peripheral Pulses: dorsalis-pedis (R): 2+, dorsalis-pedis (L): 2+ Neurologic Exam: alert, oriented x 3, cooperative, sensation nml, No motor deficits Skin Exam: normal color, warm, dry SpO2 Interpretation: normal (91% ra) - Course Nursing assessment & vital signs reviewed: Yes - CT Exams Abdomen/Pelvis CT Interpretation: Tele-radiologist Report (CT abdomen and pelvis: Impression 1. No evidence of traumatic visceral injury, 2. Previous cholecystectomy bones and joint diffuse osteoporosis with chronic appearing multilevel lower thoracic and upper lumbar vertebral body compression fractures. More extensive loss of vertebral Old bilateral pubic rami fractures with residual deformity. Previous right hip arthroplasty with metallic hardware in place) Chest CT Interpretation: Tele-radiologist Report (CT of the chest without contrast impression: 1. No evidence of acute traumatic injury. 2. Bibasilar atelectasis right greater than left with mild right hemidiaphragm elevation. 3. Atherosclerotic vascular disease including coronary artery disease b/ joints: Proximal right humerus orthopedic hardware in place. Diffuse osteoporosis. Multiple old or healing bilateral rib fractures right greater than left. Multiple old/chronicappearing lower thoracic and upper lumbar vertebral body compression fractures with more extensive loss of vertebral body height L1 and L2. Thoracic kyphosis, spondylosis, and degenerative bony changes ) Ordered Tests: Active Orders 24 hr Category Date Time Status IV Insertion STAT Care 06/12/17 02:21 Active ABDOMEN AND PELVIS W/0 CONTRAS [CT] Stat Exams 06/12/17 02:20 Taken CHEST WITHOUT CONTRAST [CT] Stat Exams 06/12/17 02:21 Taken BMP Stat Lab 06/12/17 03:15 Completed CBC W DIFF Stat Lab 06/12/17 03:15 Completed UA W/RFX UR CULTURE Stat Lab 06/12/17 03:35 Completed Medication Summary Discontinued Medications Generic Name Dose Route Start Last Admin Trade Name Dru PRN Reason Stop Dose Admin Morphine Sulfate 2 mg 06/12/17 02:22 06/12/17 02:37 Morphine Sulfate 2 Mg Inj IV 06/12/17 02:23 2 mg STAT ONE Administration Morphine Sulfate Confirm 06/12/17 02:36 Morphine Sulfate 2 Mg Inj Administered 06/12/17 02:37 Dose 2 mg .ROUTE .STK-MED ONE Ondansetron HCl 4 mg 06/12/17 02:22 06/12/17 02:37 Zofran 4 Mg/2 Ml Vial IV 06/12/17 02:23 4 mg STAT ONE Administration Ondansetron HCl Confirm 06/12/17 02:36 Zofran 4 Mg/2 Ml Vial Administered 06/12/17 02:37 Dose 4 mg .ROUTE .STK-MED ONE Lab/Rad Data: Laboratory Result Diagrams 06/12/17 03:15 06/12/17 03:15 Laboratory Results 06/12/17 06/12/17 06/12/17 Range/Units 03:35 03:15 03:15 WBC 8.5 (4.0-10.5) K/mm3 RBC 3.48 L (4.1-5.4) M/mm3 Hgb 10.3 L (12.0-16.0) gm/dl Hct 32.4 L (35-47) % MCV 93.1 (78-100) fl MCH 29.5 (26-32) pg MCHC 31.8 L (32-36) g/dl RDW 13.5 (11.5-14.0) % Plt Count 284 (150-450) K/mm3 MPV 8.8 (6-9.5) fl Gran % 57.6 (36.0-66.0) % Lymphocytes % 25.5 (24.0-44.0) % Monocytes % 15.0 H (0.0-12.0) % Eosinophils % 1.7 (0.00-5.0) % Basophils % 0.2 (0.0-0.4) % Basophils # 0.02 (0-0.4) Sodium 138 (136-145) mEq/L Potassium 3.9 (3.5-5.1) mEq/L Chloride 104 (98-107) mEq/L Carbon Dioxide 26.3 (21-32) mEq/L Anion Gap 11.8 (5-15) MEQ/L BUN 10 (9-20) mg/dL Creatinine 0.71 (0.55-1.30) mg/dl Estimated GFR > 60 ML/MIN Glucose 101 (70-110) MG/DL Calcium 8.5 (8.5-10.1) mg/dL Ur Collection Type CATH Urine Color YELLOW (YELLOW) Urine Appearance CLEAR (CLEAR) Urine pH 8.0 (5-6) Ur Specific [place] 1.010 (1.005-1.025) Urine Protein NEGATIVE (Negative) Urine Ketones NEGATIVE (NEGATIVE) Urine Blood NEGATIVE (0-5) [place]/ul Urine Nitrite NEGATIVE (NEGATIVE) Urine Bilirubin NEGATIVE (NEGATIVE) Urine Urobilinogen NORMAL (0-1) mg/dL Ur Leukocyte Esterase NEGATIVE (NEGATIVE) Urine Glucose NEGATIVE (NEGATIVE) mg/dL Specimen Received 06/12/17 0335 - Progress Progress: improved Progress Note: 06/12/17 04:29 CT of the chest and abdomen, chest impression 1. No evidence of acute traumatic injury 2. By basilar atelectasis right greater than left and mild right hemidiaphragm elevation 3. Atherosclerotic vascular disease including coronary artery disease bones and joints proximal right humerus orthopedic hardware in place. Diffuse osteoporosis multiple old or healing bilateral rib fractures right greater than left. Multiple old chronic appearing lower thoracic and upper lumbar vertebral body compression fractures with more extensive loss of vertebral body height L1 and L2. Thoracic kyphosis, spondylosis and degenerative bony changes CT abdomen and pelvis impression 1 no evidence of traumatic visceral injury 2. Previous cholecystectomy bones/joints: Diffuse osteoporosis with chronic appearing multilevel lower thoracic and upper lumbar vertebral body compression fractures. More extensive loss of vertebral body height L1 and L2. Old bilateral pubic rami fractures with residual deformity. Previous right hip arthroplasty with metallic hardware in place. Patient was given morphine 2 mg Zofran 4 mg IV she states she is feeling better. I have offered to discuss the case with the patient's family physician for possible pain control. patient does have [place] at home 06/12/17 04:44 Patient refuses admission and wants to go home. the patient's daughter states that the Patient has [place] at home for pain. Will discharge patient. 06/12/17 04:45 - Departure Time of Disposition: 04:45 Departure Disposition: Home Clinical Impression: Accidental fall Qualifiers: Encounter type: initial encounter Qualified Code(s): W19.XXXA - Unspecified fall, initial encounter Back pain Qualifiers: Back pain location: low back pain Chronicity: acute Back pain laterality: bilateral Sciatica presence: without sciatica Qualified Code(s): M54.5 - Low back pain Thoracic back pain Qualifiers: Chronicity: acute Back pain laterality: bilateral Qualified Code(s): M54.6 - Pain in thoracic spine Condition: Fair Critical Care Time: No Referrals: ANUEL QUIROGA [Primary Care Provider] - Instructions: Prevent Falls Additional Instructions: Return home. [place] as prescribed by your family doctor. Follow-up with your family doctor. Return for acute distress or for severe symptoms.
[2017-06-12] MEDS ORDERED: Zofran 4 MG/2 ML VIAL ONE (02:36)
[2017-06-12] MEDS ORDERED: MORPHINE SULFATE 2 MG INJ ONE (02:36)
[2017-06-12 03:19] LABS: BASOPHIL % 0.2 % (0.0-0.4); Eosinophil % 1.7 % (0.00-5.0); Granulocytes % 57.6 % (36.0-66.0); Lymphocytes % 25.5 % (24.0-44.0); Mean Cell Volume 93.1 fl (78-100); Mean Platelet Volume 8.8 fl (6-9.5); Platelet Count 284 K/mm3 (150-450); Red Blood Count 3.48 M/mm3 (4.1-5.4); Red Cell Distribution Width 13.5 % (11.5-14.0); White Blood Count 8.5 K/mm3 (4.0-10.5)
[2017-06-12 03:23] LABS: Mean Corpuscular Hemoglobin 29.5 pg (26-32)
[2017-06-12 03:42] LABS: ANION GAP 11.8 MEQ/L (5-15); BLOOD UREA NITROGEN 10 mg/dL (9-20); CHLORIDE 104 mEq/L (98-107); Carbon Dioxide 26.3 mEq/L (21-32); Glucose 101 MG/DL (70-110); Potassium 3.9 mEq/L (3.5-5.1); SODIUM 138 mEq/L (136-145)
[2017-06-12 03:51] LABS: Bilirubin NEGATIVE (NEGATIVE); Blood NEGATIVE Ery/ul (0-5); COMPLETE URINE MICROSCOPIC? NO; Collection Type CATH; Glucose NEGATIVE (NEGATIVE); Leukocyte Esterase NEGATIVE (NEGATIVE)
[2017-06-12 03:52] LABS: ADD URINE CULTURE? NO (NO)
[2017-06-12 05:23] VITALS: BP 147/74; PULSE 78; O2SAT 93
--- NOTE | 2017-06-12 09:04 | XRAY ---
Indication: Posterior pain following fall 4 days ago. Multiple contiguous axial images obtained through the chest without contrast as ordered. Comparison: CT PE study January 15, 2010. Lungs inflated with new peripheral right middle and right lower lobe consolidating airspace opacities. Minimal left base and right upper lobe atelectasis/scarring. No effusion. Heart is not enlarged. No pericardial effusion. Aorta is mildly arteriosclerotic without aneurysmal dilatation. Bone windows demonstrates osteopenia and degenerative changes. New findings for multiple old bilateral rib, old thoracolumbar, and old right humeral fractures with partially visualized femoral orthopedic hardware. CT abdomen reported separately. Impression: 1. New right middle and right lower lobe peripheral consolidating airspace disease. Rule out aspiration as a potential cause. 2. Multiple old bilateral rib, thoracolumbar, and right humeral fractures. Comment: Preliminary interpretation was made by [facility]. Right lung opacities reported as atelectasis which I believe are more likely airspace disease. I gave telephone report to Dr. Bolton in the ER at 1900 hrs. on June 12, 2017. CT DI 12.99
--- NOTE | 2017-06-12 09:05 | XRAY ---
Indication: Pain following fall 4 days ago. Multiple contiguous axial images obtained through the abdomen and pelvis without contrast as ordered. Comparison: None CT chest reported separately. A right hip bipolar prosthesis produces beam artifact limiting this level. Noncontrasted stomach and bowel loops appear nonobstructed. Descending duodenum demonstrates a 3 cm diverticulum. Mild/moderate fecal debris seen in the ascending colon and lesser degree transverse colon. Normal appendix. No free fluid/air. Urinary bladder is moderately distended. 7 mm left mid renal cortical cyst. Cholecystectomy clips and a few calcified splenic granulomas. Remaining liver, pancreas, adrenal glands, kidneys, ureters, and uterus appear unremarkable for noncontrast exam. Mild aortoiliac calcifications without AAA. Osseous structures demonstrate osteopenia and degenerative changes. Remote appearing multiple bilateral rib, multilevel thoracolumbar, and bilateral pubic bone fractures. Impression: 1. No acute intra-abdominal/pelvic abnormalities or acute fracture on this noncontrast exam. 2. Mild fecal stasis without obstruction. 3. Incidental duodenal diverticulum, left renal cyst, right hip arthroplasty, osteopenia, and multiple old fractures. Comment: Preliminary interpretation was made by [facility]. No discrepancy. CT DI 15.15
== END 2017-06-12 05:23 | disposition home or self-care (01) ==
LOC: ED 02:06
DX: M54.5 Low back pain (principal); M54.6 Pain in thoracic spine; W18.30XD Fall on same level, unspecified, subsequent encounter; Z79.899 Other long term (current) drug therapy; E03.9 Hypothyroidism, unspecified
CPT/HCPCS: 36415; 71250; 74176; 80048; 81002; 85025; 96374; 96375; 99284; J2270; J2405

== ENCOUNTER 2017-06-12 13:24 | Inpatient (IN) | payer MEDICARE, SELFPAY ==
[2017-06-12] MEDS ORDERED: Zithromax 500 MG/ 250 ML NaCl Premix 500 MG/250 ML IVPB IV ONE (17:47)
[2017-06-12] MEDS ORDERED: Sodium Chloride 0.9% 1000 ML 1,000 ML ONE (17:47)
[2017-06-12] MEDS ORDERED: xanAX 0.25 MG PO PRN (18:00)
[2017-06-12] MEDS ORDERED: ZOFRAN ODT 4 MG PO PRN (18:03)
[2017-06-12] MEDS: Sodium Chloride 0.9% 1000 ML 1,000 ML IV SCH (18:20)
[2017-06-12] MEDS: ROCEPHIN 1 Gm-D5w 50 ml Bag** 1 G/50 ML IVPB IV SCH (18:21)
[2017-06-12] MEDS ORDERED: Phenergan 25 MG INJ IV PRN (20:36)
--- NOTE | 2017-06-12 20:44 | PCM.HP ---
History of Present Illness - Chief Complaint Chief Complaint: PNEUMONIA History of Present Illness: is a 86 year old female who came to the ER early this morning a few days after a fall. She was backing up trying to get into bed and she miscalculated and slid down into an iron bar on the bed. She has had quite a bit of R flank pain, particularly when changing position and transferring. After a few days the pain was severe so she came to ER. She was treated and released, then when our radiologist over read the CXR he found pneumonia and we called the patient back for direct admission. Pt lives alone. She is also 15d status post skin cancer resection (post radiation) on her face. - Review of Systems Constitutional: Weakness Eyes: Eye Redness Ears, Nose, & Throat: Other (recent facial surgery) Respiratory: Cough (some mild cough) Cardiac: Chest Pain (wiht cough) Musculoskeletal: Back Pain, Fall All Other Systems: Reviewed and Negative Medications & Allergies Home Medications: Home Medication List Alprazolam 0.25 mg [xanAX 0.25 MG] 0.25 mg PO TID PRN 04/18/13 [History Confirmed 06/12/17] Ropinirole HCl [Requip] 3 mg PO HS 04/18/13 [History Confirmed 06/12/17] Levothyroxine Sodium 75 Mcg [Synthroid 75 Mcg] 75 mcg PO DAILY 01/26/15 [ History Confirmed 06/12/17] Duloxetine HCl 30 mg [Cymbalta 30 MG Capsule] 30 mg PO BID 11/18/16 [ History Confirmed 06/12/17] Hydrocodone/Acetaminophen [Hydrocodone-Acetamin 2.5-108/5 ml Solution] 15 ml PO TID PRN 11/18/16 [History Confirmed 06/12/17] Ondansetron [Zofran Odt] 4 mg SL Q4H PRN 11/18/16 [History Confirmed 06/12/17] Allergies/Adverse Reactions: Allergies Allergy/AdvReac Type Severity Reaction Status Date / Time codeine AdvReac Nausea Verified 06/12/17 04:32 - Past Medical History Past Medical History: Yes Neurological History: No Pertinent History ENT History: Cataracts Cardiac History: Hypertension Respiratory History: Pneumonia, Other Endocrine Medical History: Hypothyroidism Musculoskelatal History: Arthritis, Degenerative Disk Disease, Fractures, Osteoarthritis GI Medical History: No Pertinent History History: No Pertinent History Pyscho-Social History: No Pertinent History Reproductive Disorders: No Pertinent History Comment: DROP FOOT RT FOOT - Female History Are you now?: No - Past Surgical History Past Surgical History: Yes Neuro Surgical History: No Pertinent History Cardiac History: No Pertinent History Respiratory Surgery: No Pertinent History GI Surgical History: Cholecystectomy Genitourinary Surgical Hx: No Pertinent History Musculskeletal Surgical Hx: Joint Replacement, Orthopedic Surgery Female Surgical History: No Pertinent History Other Surgical History: R HIP. , RT SHOULDER. CANCER REMOVAL FROM NOSE 2017 - Social History Smoking Status: Never smoker Exposure to second hand smoke: Yes Alcohol: None Drug Use: none - Physical Exam Vital Signs: Vital Signs - 24 hr Temp Pulse Resp BP Pulse Ox 06/12/17 17:40 98.3 F 65 18 150/99 90 L 06/12/17 17:33 97.8 F 65 18 150/99 90 L Oxygen-Last 24 hours O2 Percentage 2 Liters = 28% O2 Percentage 2 Liters = 28% General Appearance: no apparent distress, alert Neurologic Exam: oriented x 3, cooperative Eye Exam: eyes nml inspection Ears, Nose, Throat Exam: other (scar/sutures on R of nose with some skin deformity R cheek) Neck Exam: normal inspection, non-tender, supple, No lymphadenopathy Respiratory Exam: normal breath sounds, lungs clear, No crackles/rales, No rhonchi, No wheezing Cardiovascular Exam: regular rate/rhythm, normal heart sounds, No murmur Gastrointestinal/Abdomen Exam: soft, normal bowel sounds, No tenderness, No distention, No mass Back Exam: normal inspection, other (TTP around the 12th rib on the R flank. no lesions/erythema/induration) Skin Exam: normal color, warm, dry, other (scattered brown pigmented stuck on lesions) Assessment/Plan (1) Pneumonia Current Visit: Yes Status: Acute Qualifiers: Pneumonia type: due to unspecified organism Laterality: right Lung location: unspecified part of lung Qualified Code(s): J18.9 - Pneumonia, unspecified organism Assessment & Plan: Re-read wiht PNA. On Rocephin and zitrhomax IV. Likely due to relative inactivity after her fall and injury. Code(s): J18.9 - PNEUMONIA, UNSPECIFIED ORGANISM (2) Accidental fall Current Visit: No Status: Acute Assessment & Plan: PT to consult. Code(s): W19.XXXA - UNSPECIFIED FALL, INITIAL ENCOUNTER (3) Back pain Current Visit: No Status: Acute Qualifiers: Back pain location: thoracic back pain Chronicity: acute Back pain laterality: right Qualified Code(s): M54.6 - Pain in thoracic spine Assessment & Plan: Check XR ribs. morphine for pain prn tonight. Code(s): M54.9 - DORSALGIA, UNSPECIFIED
[2017-06-12] MEDS ORDERED: Zithromax 500 MG/ 250 ML NaCl Premix 500 MG/250 ML IVPB IV SCH (21:00)
[2017-06-12] MEDS: Cymbalta 30 MG Capsule PO SCH (21:55)
[2017-06-12] MEDS: REQUIP 2MG TAB PO SCH (21:55)
[2017-06-12] MEDS: xanAX 0.5 MG PO SCH (21:56)
[2017-06-13] MEDS: MORPHINE SULFATE 4 MG INJ IV PRN (03:58)
[2017-06-13 05:59] LABS: Mean Cell Volume 93.6 fl (78-100); Mean Platelet Volume 9.2 fl (6-9.5); Platelet Count 291 K/mm3 (150-450); Red Blood Count 3.61 M/mm3 (4.1-5.4); Red Cell Distribution Width 13.6 % (11.5-14.0); White Blood Count 6.8 K/mm3 (4.0-10.5)
[2017-06-13 06:21] LABS: ALBUMIN 2.8 g/dL (3.4-5.0); ALKALINE PHOSPHATASE 94 U/L (46-116); BLOOD UREA NITROGEN 7 mg/dL (9-20); CHLORIDE 103 mEq/L (98-107); Carbon Dioxide 26.8 mEq/L (21-32); Glucose 91 MG/DL (70-110); SGOT/AST 18 U/L (15-37); SGPT/ALT 9 U/L (12-78); SODIUM 139 mEq/L (136-145); Total Protein 6.3 gm/dL (6.4-8.2)
[2017-06-13] MEDS ORDERED: ZOFRAN ODT 4 MG PO PRN (06:55)
--- NOTE | 2017-06-13 08:32 | XRAY ---
Indication: Right lower rib pain following fall 2 days ago. Comparison: None 2 views of the right ribs demonstrates osteopenia, multiple old right rib fractures, old proximal humeral fracture with intact hardware, old thoracolumbar compression fractures, cholecystectomy clips, and right lung base infiltrate/atelectasis. No other bony, articular, or soft tissue abnormalities.
--- NOTE | 2017-06-13 08:47 | PCM.NOTE ---
Date and Time: 06/13/17 08 Subjective Assessment: Still c/o back pain but less pain with transferring. PT to evaluate patient today. On 2L O2 per NC. - Review of Systems Constitutional: No Fever Musculoskeletal: Back Pain Objective Exam General Appearance: no apparent distress Neurologic Exam: alert, oriented x 3, cooperative Skin Exam: other (R cheek erythematous as before, no exudate, sutures in place R nose) Respiratory Exam: normal breath sounds, No crackles/rales, No rhonchi, No wheezing Cardiovascular Exam: regular rate/rhythm, normal heart sounds, No murmur OBJECTIVE DATA Vital Signs: Vital Signs - 24 hr Temp Pulse Resp BP Pulse Ox 06/13/17 07:00 98 F 65 20 133/74 96 06/13/17 03:00 98.5 F 78 24 183/74 93 L 06/12/17 23:45 97.1 F 57 L 24 176/74 97 06/12/17 21:27 98.1 F 95 H 16 186/76 98 06/12/17 17:40 98.3 F 65 18 150/99 90 L 06/12/17 17:33 97.8 F 65 18 150/99 90 L Oxygen-Last 24 hours O2 Percentage 2 Liters = 28% O2 Percentage 2 Liters = 28% O2 Percentage 2 Liters = 28% O2 Percentage 2 Liters = 28% O2 Percentage 2 Liters = 28% O2 Percentage 2 Liters = 28% Pain Assessment - Last Documented Pain Intensity 0 Pain Scale Used 0-10 Pain Scale Intake and Output: Intake & Output 06/10/17 06/11/17 06/12/17 06/13/17 11:59 11:59 11:59 11:59 Intake Total 669 Balance 669 Weight 49.583 kg Lab Results: Lab Results-Last 24 Hours 06/13/17 06/13/17 Range/Units 05:20 05:20 WBC 6.8 (4.0-10.5) K/mm3 RBC 3.61 L (4.1-5.4) M/mm3 Hgb 10.5 L (12.0-16.0) gm/dl Hct 33.8 L (35-47) % MCV 93.6 (78-100) fl MCH 29.0 (26-32) pg MCHC 31.1 L (32-36) g/dl RDW 13.6 (11.5-14.0) % Plt Count 291 (150-450) K/mm3 MPV 9.2 (6-9.5) fl Sodium 139 (136-145) mEq/L Potassium 4.0 (3.5-5.1) mEq/L Chloride 103 (98-107) mEq/L Carbon Dioxide 26.8 (21-32) mEq/L Anion Gap 13.0 (5-15) MEQ/L BUN 7 L (9-20) mg/dL Creatinine 0.73 (0.55-1.30) mg/dl Estimated GFR > 60 ML/MIN Glucose 91 (70-110) MG/DL Calcium 8.7 (8.5-10.1) mg/dL Total Bilirubin 0.30 (0.2-1.0) mg/dL AST 18 (15-37) U/L ALT 9 L (12-78) U/L Alkaline Phosphatase 94 (46-116) U/L Serum Total Protein 6.3 L (6.4-8.2) gm/dL Albumin 2.8 L (3.4-5.0) g/dL Radiology Exams: Radiology Procedures Category Date Time Status RIBS UNILATERAL Routine Exams 06/12/17 Completed Assessment/Plan (1) Pneumonia Current Visit: Yes Status: Acute Qualifiers: Pneumonia type: due to unspecified organism Laterality: right Lung location: unspecified part of lung Qualified Code(s): J18.9 - Pneumonia, unspecified organism Assessment & Plan: On IV rocephin and zithromax. She would benefit from several days of IV antibiotics. Code(s): J18.9 - PNEUMONIA, UNSPECIFIED ORGANISM (2) Accidental fall Current Visit: Yes Status: Acute Assessment & Plan: Her pain is somewhat better but may increase when she is up with PT today. Code(s): W19.XXXA - UNSPECIFIED FALL, INITIAL ENCOUNTER (3) Back pain Current Visit: No Status: Resolved Qualifiers: Back pain location: thoracic back pain Chronicity: acute Back pain laterality: right Qualified Code(s): M54.6 - Pain in thoracic spine Assessment & Plan: No new fracture on rib XR. Code(s): M54.9 - DORSALGIA, UNSPECIFIED
[2017-06-13] MEDS: Cymbalta 30 MG Capsule PO SCH ×3 (09:26→21:39)
[2017-06-13] MEDS: SYNTHROID 75 MCG PO SCH (09:27)
[2017-06-13] MEDS: xanAX 0.25 MG PO SCH (09:27)
[2017-06-13] MEDS: ROCEPHIN 1 Gm-D5w 50 ml Bag** 1 G/50 ML IVPB IV SCH (09:27)
[2017-06-13] MEDS: HYDROCODONE-ACETAMIN 2.5-108/5 ML SOLUTION PO PRN (14:28)
[2017-06-13] MEDS: Sodium Chloride 0.9% 1000 ML 1,000 ML IV SCH (15:27)
[2017-06-13] MEDS ORDERED: Zithromax 500 MG/ 250 ML NaCl Premix 500 MG/250 ML IVPB IV SCH (21:00)
[2017-06-13] MEDS: Zithromax 500 MG/ 250 ML NaCl Premix 500 MG/250 ML IVPB IV SCH (21:39)
[2017-06-13] MEDS: REQUIP 2MG TAB PO SCH (21:39)
[2017-06-13] MEDS: xanAX 0.5 MG PO SCH (21:40)
[2017-06-14] MEDS: MORPHINE SULFATE 4 MG INJ IV PRN ×3 (03:21→20:40)
[2017-06-14] MEDS: Sodium Chloride 0.9% 1000 ML 1,000 ML IV SCH ×2 (03:22→20:54)
[2017-06-14] MEDS: Cymbalta 30 MG Capsule PO SCH ×2 (09:47→21:08)
[2017-06-14] MEDS: xanAX 0.25 MG PO SCH (09:49)
[2017-06-14] MEDS: HYDROCODONE-ACETAMIN 2.5-108/5 ML SOLUTION PO PRN (09:50)
[2017-06-14] MEDS: ROCEPHIN 1 Gm-D5w 50 ml Bag** 1 G/50 ML IVPB IV SCH (09:50)
[2017-06-14] MEDS: SYNTHROID 75 MCG PO SCH (09:50)
[2017-06-14] MEDS ORDERED: TYLENOL 325 MG PO PRN (11:32)
--- NOTE | 2017-06-14 11:43 | PCM.NOTE ---
Date and Time: 06/14/17 8027 Subjective Assessment: Patient reports she choked on her pills this AM. Upon reviewing the CT scan of her chest, it was read as right middle lobe and right lower lobe pneumonia that may be related to aspiration. Her nurse said she was told she is going to have a swallow study Friday but no order for this or speech therapy consult can be found in her chart. Patient reports that her back pain is better but still present when she moves. She has drank some fluids. 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 She has some swelling from this and the nurse has placed an ice pack on this. - Review of Systems Constitutional: Fatigue Eyes: No Symptoms Ears, Nose, & Throat: No Symptoms Respiratory: Other (choking on pills this AM) Cardiac: No Symptoms Abdominal/Gastrointestinal: No Symptoms Musculoskeletal: Other (soreness of her face) Objective Exam General Appearance: no apparent distress, alert, other (marked swelling of her face with long healing incision by her nose with quite a bit of swelling.) Neurologic Exam: alert, cooperative, normal mood/affect Skin Exam: normal color, warm, dry Respiratory Exam: normal breath sounds, rhonchi, other (rhonchi at bases bilat) , No accessory muscle use, No crackles/rales, No wheezing Cardiovascular Exam: regular rate/rhythm, No murmur, No friction rub, No gallop Gastrointestinal/Abdomen Exam: soft, normal bowel sounds, No tenderness, No distention, No mass, No guarding Extremity Exam: other (no c/c/e) OBJECTIVE DATA Vital Signs: Vital Signs - 24 hr Temp Pulse Resp BP Pulse Ox 06/14/17 11:10 97.9 F 68 20 139/66 96 06/14/17 07:01 98 F 74 18 140/68 97 06/14/17 04:00 98.9 F 74 24 146/67 94 L 06/14/17 00:00 98.2 F 77 28 H 161/64 93 L 06/13/17 20:00 98.1 F 60 16 133/62 95 06/13/17 15:00 98.6 F 64 18 150/67 96 Oxygen-Last 24 hours O2 Percentage 2 Liters = 28% O2 Percentage 2 Liters = 28% O2 Percentage 2 Liters = 28% O2 Percentage 2 Liters = 28% Pain Assessment - Last Documented Pain Intensity 10 Pain Scale Used 0-10 Pain Scale Intake and Output: Intake & Output 06/12/17 06/13/17 06/14/17 06/15/17 06:59 06:59 06:59 06:59 Intake Total 669 2820 120 Output Total 1400 450 Balance 669 1420 -330 Weight 49.583 kg Multi-Disciplinary Progress Notes: Multi-Disciplinary Progress Notes 06/13/17 14:27 Case Management Note by Viji Allen AT HOME DISCHARGE PLAN DISCUSSED WITH PT'S DAUGHTER (AT HOME LAY CAREGIVER). REPORTS THAT THEIR PLAN IS GOING TO BE FOR PT TO STAY WITH DAUGHTER FOR A FEW WEEKS ON DISCHARGE. REPORTS THAT PT HAS WALKERS/CANES THAT SHE USES AT HOME FOR AMBULATION. REPORTS THAT PT IS NORMALLY INDEPENDENT WITH ALL ADL'S. DISCUSSED [facility] SERVICES FOR ADD[facility] SUPPORT ON DISCHARGE. YOHAN RE[facility] DECLINED ADDNL NEEDS AT PRESENT. PLAN TO RETURN HOME WITH DAUGHTER AND HHC SERVICES. WILL CONTINUE TO FOLLOW AND ASSESS FOR ALL DC NEEDS. Initialized on 06/13/17 14:27 - END OF NOTE Assessment/Plan (1) Pneumonia Current Visit: Yes Status: Acute Qualifiers: Pneumonia type: due to unspecified organism Laterality: right Lung location: unspecified part of lung Qualified Code(s): J18.9 - Pneumonia, unspecified organism Assessment & Plan: Continue ceftriaxone and azithromycin and oxygen as needed. Code(s): J18.9 - PNEUMONIA, UNSPECIFIED ORGANISM (2) Accidental fall Current Visit: Yes Status: Acute Assessment & Plan: PT ordered yesterday per Dr. Kahn's note. Code(s): W19.XXXA - UNSPECIFIED FALL, INITIAL ENCOUNTER (3) Back pain Current Visit: Yes Status: Acute Code(s): M54.9 - DORSALGIA, UNSPECIFIED (4) Swallowing difficulty Current Visit: Yes Status: Acute Assessment & Plan: Speech therapy consult ordered today. Code(s): R13.10 - DYSPHAGIA, UNSPECIFIED
[2017-06-14] MEDS: Zithromax 500 MG/ 250 ML NaCl Premix 500 MG/250 ML IVPB IV SCH (20:55)
[2017-06-14] MEDS: xanAX 0.5 MG PO SCH (20:57)
[2017-06-14] MEDS: REQUIP 2MG TAB PO SCH (20:57)
[2017-06-15] MEDS: Cymbalta 30 MG Capsule PO SCH ×2 (09:52→21:51)
[2017-06-15] MEDS: SYNTHROID 75 MCG PO SCH (09:53)
[2017-06-15] MEDS: xanAX 0.25 MG PO SCH (09:53)
[2017-06-15] MEDS: ROCEPHIN 1 Gm-D5w 50 ml Bag** 1 G/50 ML IVPB IV SCH (09:55)
--- NOTE | 2017-06-15 11:11 | PCM.NOTE ---
Date and Time: 06/15/17 1108 Subjective Assessment: Patient reports her breathing is good. 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 Patient reports provider that did surgery plans to remove stitches in the future. She continues to have some back pain. Patient refused speech therapy evaluation yesterday for choking and trouble swallowing. - Review of Systems Constitutional: No Symptoms Eyes: No Symptoms Ears, Nose, & Throat: No Symptoms Respiratory: No Symptoms Cardiac: No Symptoms Abdominal/Gastrointestinal: No Symptoms Genitourinary Symptoms: No Symptoms Musculoskeletal: Back Pain Objective Exam General Appearance: no apparent distress, alert, other (scar with deformity around right side of nose with sutures intact.) Skin Exam: normal color, dry Respiratory Exam: normal breath sounds, lungs clear, No crackles/rales, No rhonchi, No wheezing Cardiovascular Exam: regular rate/rhythm, normal heart sounds, No murmur, No friction rub, No gallop Gastrointestinal/Abdomen Exam: soft, normal bowel sounds, No tenderness, No distention, No mass Extremity Exam: other (no c/c/e) OBJECTIVE DATA Vital Signs: Vital Signs - 24 hr Temp Pulse Resp BP Pulse Ox 06/15/17 07:21 98.1 F 68 20 155/68 95 06/15/17 04:00 98.8 F 66 24 163/69 98 06/15/17 00:00 99.1 F 63 24 136/65 91 L 06/14/17 20:00 99.8 F 64 24 176/72 97 06/14/17 15:56 98 F 78 20 146/80 96 06/14/17 11:10 97.9 F 68 20 139/66 96 Oxygen-Last 24 hours O2 Percentage 2 Liters = 28% O2 Percentage 3 Liters = 32% O2 Percentage 2 Liters = 28% O2 Percentage 2 Liters = 28% O2 Percentage 2 Liters = 28% O2 Percentage 2 Liters = 28% Pain Assessment - Last Documented Pain Intensity 4 Pain Scale Used 0-10 Pain Scale Intake and Output: Intake & Output 06/13/17 06/14/17 06/15/17 06/16/17 06:59 06:59 06:59 06:59 Intake Total 669 8730 1902 Output Total 1400 1350 Balance 669 1420 552 Weight 49.583 kg Multi-Disciplinary Progress Notes: Multi-Disciplinary Progress Notes 06/14/17 15:26 Speech Therapy Note by Missy Caballero hot strip mill supervisor notified ST of physician order and patient status. Speech Therapist arrived to complete Bedside Swallow Evaluation per physician order. Chart review completed. During interaction with patient and patient's daughter , patient became very verbal and stated "no, I do not want that test. If I choke to , that's OK with me." Attempted to calm patient and explain the how swallowing difficulties result in pneumonia and how sometimes it is a simple solution once we find out what the cause is. Patient again refused, and apologized, but continued to refuse. She stated she understood all information presented to her. Daughter stated she was POA; and even if she disagreed with mother, she would not go against her wishes. Daughter indicated they would continue to discuss it, and patient said "No we will not!" When ST indicated I would stop in and see her another day, patient stated to "not waste your time". ST left the room at this time. MS Scott, CCC/FLOW WORKER Initialized on 06/14/17 15:26 - END OF NOTE Assessment/Plan (1) Pneumonia Current Visit: Yes Status: Acute Qualifiers: Pneumonia type: due to unspecified organism Laterality: right Lung location: unspecified part of lung Qualified Code(s): J18.9 - Pneumonia, unspecified organism Assessment & Plan: Continue current antibiotics. Code(s): J18.9 - PNEUMONIA, UNSPECIFIED ORGANISM (2) Accidental fall Current Visit: Yes Status: Acute Code(s): W19.XXXA - UNSPECIFIED FALL, INITIAL ENCOUNTER (3) Back pain Current Visit: Yes Status: Acute Assessment & Plan: Continue current treatment. Code(s): M54.9 - DORSALGIA, UNSPECIFIED (4) Swallowing difficulty Current Visit: Yes Status: Acute Assessment & Plan: Refused further work up. Code(s): R13.10 - DYSPHAGIA, UNSPECIFIED
[2017-06-15] MEDS: MORPHINE SULFATE 4 MG INJ IV PRN (13:48)
[2017-06-15] MEDS: Zithromax 500 MG/ 250 ML NaCl Premix 500 MG/250 ML IVPB IV SCH (21:47)
[2017-06-15] MEDS: xanAX 0.5 MG PO SCH (23:06)
[2017-06-15] MEDS: REQUIP 2MG TAB PO SCH (23:06)
[2017-06-16] MEDS: MORPHINE SULFATE 4 MG INJ IV PRN ×2 (03:05→09:02)
[2017-06-16] MEDS ORDERED: Erythromycin 3.5 GM OPHTH. OP ONE (09:01)
[2017-06-16] MEDS: xanAX 0.25 MG PO SCH (09:03)
[2017-06-16] MEDS: ROCEPHIN 1 Gm-D5w 50 ml Bag** 1 G/50 ML IVPB IV SCH (09:03)
[2017-06-16] MEDS: Cymbalta 30 MG Capsule PO SCH (09:04)
[2017-06-16] MEDS: SYNTHROID 75 MCG PO SCH (09:05)
--- NOTE | 2017-06-16 09:09 | PCM.DS ---
Discharge Summary Date of Admission: 06/13/17 17:30 Admitting Physician: ANUEL QUIROGA Primary Care Provider: ANUEL QUIROGA Allergies Allergies codeine Adverse Reaction (Verified 06/12/17 04:32) Nausea Hospital Summary - Hospital Course Hospital Course: Pt seen in ER for a fall, sent home but then called back as re-read of CXR revealed pneumonia. She has recovered steadily on IV antibiotics. Initially her back pain was severe but has improved. She also had some elevated BP into 170s systolic during her stay. She is approx 1.5-2 wks out from cancer removal on the face by dermatology. Has had some exudate from her nose wound over the weekend. She complains of one episode of back pain last night, otherwise doing well. She did get up and walk with the nurse last night. Tyson po. She is very anxious here. Pt's daughter was worried about her hearing, pt had her hearing aid fixed in her left ear and pt still can't hear well. - Vitals & Intake/Output Vital Signs: Vital Signs Temperature 98.1 F 06/16/17 07:00 Pulse Rate 88 06/16/17 07:00 Respiratory Rate 16 06/16/17 07:00 Blood Pressure 147/65 06/16/17 07:00 O2 Sat by Pulse Oximetry 93 L 06/16/17 07:00 Oxygen-Last Documented O2 Percentage 2 Liters = 28% Intake & Output: Intake & Output 06/13/17 06/14/17 06/15/17 06/16/17 11:59 11:59 11:59 11:59 Intake Total 1149 2460 1782 1451 Output Total 4111 813 1322 Balance 1149 610 882 251 Weight 49.583 kg - Lab Result Diagrams: 06/13/17 05:20 06/13/17 05:20 - Procedures and Test Procedures and Tests throughout Hospitalization: Therapy Orders & Screens 06/12/17 20:37 PT Eval & Treat ( Order) ROUTINE Evaluate: Yes Treat: Yes Reason for Eval:: Fall Diagnosis: PNEUMONIA 06/14/17 11:36 Speech Therapy Eval & Treat [ST Eval & Treat ( Order)] .as ordered Comment: Physician Instructions: Reason For Exam: Evaluate: Yes Treat: Yes Reason for Eval: aspiration pneumonia, choking on pills Diagnosis: PNEUMONIA, FAILED OUTPATIENT Discharge Exam General Appearance: no apparent distress Neurologic Exam: alert, oriented x 3, other (very SALAMATOF) Skin Exam: warm, dry Eye Exam: other (R conjunctiva mildly erythematous with some yellow exudate medially. Nose with wound, linear, on the R, no obvious exudate on exam. No erythema; the R cheek is dry.) Ears, Nose, Throat Exam: other (L TM obscured by wax) Respiratory Exam: normal breath sounds, lungs clear, No crackles/rales, No rhonchi, No wheezing Cardiovascular Exam: regular rate/rhythm, normal heart sounds, murmur (II/ sys murmur) Extremity Exam: No pedal edema, No swelling Final Diagnosis/Problem List - Final Discharge Diagnosis/Problem (1) Pneumonia Current Visit: Yes Status: Acute Assessment & Plan: Improved; not on O2 for the past 24 hours. Will send pt home on po augmentin liquid. (2) Accidental fall Current Visit: Yes Status: Acute Assessment & Plan: Would like PT to make sure pt is safe at home today then will plan to discharge this afternoon. (3) Back pain Current Visit: No Status: Resolved Assessment & Plan: Only occurs intermittently. Pt to go home on her previous dose of home liquid norco prn. (4) HTN (hypertension) Current Visit: Yes Status: Acute Assessment & Plan: adding 5mg lisinopril to meds today as she continues to have some BP into the 170s systolic. The lowest BP are upper 130s systolic - I don't think that just 5mg lisinopril will lower her bp below 120 systolic. (5) Wound exudate odor absent Current Visit: Yes Status: Acute Assessment & Plan: from nasal wound/eye. Adding eye salve. Culture exudate. She should be returning to her surgeon soon. Overall the wound does not look bad. (6) Impacted cerumen of left ear Current Visit: Yes Status: Acute Assessment & Plan: Advised pt not to be sticking anything in the ear to remove the wax. She needs the ear flushed at the office when she comes for follow up. (7) Swallowing difficulty Current Visit: Yes Status: Acute Assessment & Plan: She has refused speech therapy eval in no uncertain terms, so I have cancelled it. - Discharge Disposition: Home, Self-Care Condition: Stable Prescriptions: New Amox Tr/Potass Clav. 400 mg [Augmentin 400 MG/5 ML] 2 tsp PO BID #1 bottle Lisinopril 5 mg [Zestril 5 MG] 5 mg PO DAILY #30 tablet Continue Ropinirole HCl [Requip] 3 mg PO HS Alprazolam 0.25 mg [xanAX 0.25 MG] 0.25 mg PO TID PRN PRN Reason: Anxiety Levothyroxine Sodium 75 Mcg [Synthroid 75 Mcg] 75 mcg PO DAILY Duloxetine HCl 30 mg [Cymbalta 30 MG Capsule] 30 mg PO BID Ondansetron [Zofran Odt] 4 mg SL Q4H PRN PRN Reason: Nausea Hydrocodone/Acetaminophen [Hydrocodone-Acetamin 2.5-108/5 ml Solution] 15 ml PO TID PRN Follow up with: ANUEL QUIROGA [Primary Care Provider] - 1 Week
[2017-06-16] MEDS ORDERED: Zestril 5 MG PO SCH (10:00)
[2017-06-16 11:51] VITALS: BP 178/74; PULSE 74; O2SAT 96
== END 2017-06-16 14:35 | disposition home health service (06) | DRG 195 ==
LOC: UNDOADMOB 17:08 → MED SURG 17:08 → INTOOBSV 17:30 → OBSVTOIN 17:30 → MED SURG 06-13 17:30
PROVIDERS: ADMIT Family Medicine; ATTEND Family Medicine
DX: J18.9 Pneumonia, unspecified organism (principal); M54.9 Dorsalgia, unspecified; I10 Essential (primary) hypertension; H61.22 Impacted cerumen, left ear; R13.10 Dysphagia, unspecified; Z85.828 Personal history of other malignant neoplasm of skin; Z98.890 Other specified postprocedural states
CPT/HCPCS: 36415; 71100; 80053; 85027; 87070; 87077; 87186; 93268; G0378; J0456; J0696; J2270; A9270-GY

== ENCOUNTER 2017-06-25 15:04 | Observation (INO) | payer MEDICARE, SELFPAY ==
[2017-06-25] MEDS ORDERED: MORPHINE SULFATE 10 MG/ML IV PRN (16:44)
[2017-06-25] MEDS: Lactated Ringers 1,000 ML IV SCH (17:10)
[2017-06-25] MEDS: Zofran 4 MG/2 ML VIAL IV PRN (17:10)
[2017-06-25] MEDS ORDERED: xanAX 0.25 MG PO PRN (17:31)
[2017-06-25 18:00] LABS: BASOPHIL % 0.3 % (0.0-0.4); Eosinophil % 2.8 % (0.00-5.0); Granulocytes % 69.2 % (36.0-66.0); Lymphocytes % 19.3 % (24.0-44.0); Mean Cell Volume 92.6 fl (78-100); Mean Platelet Volume 9.2 fl (6-9.5); Monocytes % 8.4 % (0.0-12.0); Platelet Count 267 K/mm3 (150-450); White Blood Count 7.5 K/mm3 (4.0-10.5)
[2017-06-25 18:24] LABS: ALBUMIN 3.3 g/dL (3.4-5.0); ALKALINE PHOSPHATASE 127 U/L (46-116); ANION GAP 13.8 MEQ/L (5-15); BLOOD UREA NITROGEN 10 mg/dL (9-20); CHLORIDE 105 mEq/L (98-107); Carbon Dioxide 25.9 mEq/L (21-32); Glucose 99 MG/DL (70-110); LIPASE 269 U/L (73-393); Potassium 3.7 mEq/L (3.5-5.1); SGOT/AST 21 U/L (15-37); SGPT/ALT 13 U/L (12-78); SODIUM 141 mEq/L (136-145); Total Protein 7.6 gm/dL (6.4-8.2)
--- NOTE | 2017-06-25 20:01 | PCM.HP ---
History of Present Illness - Chief Complaint Chief Complaint: vertabral fx vomiting History of Present Illness: is a 86 year old female who called my office today c/o several days of increased vomiting. She had recently been in the hospital with pneumonia s/p fall (she actually slid down the side of her bed as she was backing up to get into bed and she hit her back on a metal railing). Rib XR x 2 negative for fracture. She has still been having quite a bit of R flank pain at home, up to 07/08, worse with position changes. Currently, lying in bed, she has no back pain. On CT she was found to have a new T9 fracture. She has c/o trouble swallowing for months and has refused to get any testing until now. - Review of Systems Constitutional: Fatigue, Weakness Abdominal/Gastrointestinal: Nausea, Vomiting Musculoskeletal: Back Pain Neurological: Dizziness (this morning) Psychological: Anxiety All Other Systems: Reviewed and Negative Medications & Allergies Home Medications: Home Medication List Alprazolam 0.25 mg [xanAX 0.25 MG] 0.25 mg PO TID PRN PRN 04/18/13 [ History Confirmed 06/25/17] Ropinirole HCl [Requip] 3 mg PO HS 04/18/13 [History Confirmed 06/25/17] Levothyroxine Sodium 75 Mcg [Synthroid 75 Mcg] 75 mcg PO DAILY 01/26/15 [ History Confirmed 06/25/17] Duloxetine HCl 30 mg [Cymbalta 30 MG Capsule] 30 mg PO BID 11/18/16 [ History Confirmed 06/25/17] Ondansetron [Zofran Odt] 4 mg SL Q4H PRN 11/18/16 [History Confirmed 06/25/17] Hydrocodone/Acetaminophen [Hewitt 10-325 Tablet] 1 each PO TID PRN 06/25/17 [ History Confirmed 06/25/17] Lisinopril 5 mg [Zestril 5 MG] 2.5 mg PO DAILY 06/25/17 [History Confirmed 06/25/17] Allergies/Adverse Reactions: Allergies Allergy/AdvReac Type Severity Reaction Status Date / Time codeine AdvReac Nausea Verified 06/25/17 16:36 - Past Medical History Past Medical History: Yes Neurological History: No Pertinent History ENT History: Cataracts Cardiac History: Hypertension Respiratory History: Pneumonia, Other Endocrine Medical History: Hypothyroidism Musculoskelatal History: Arthritis, Degenerative Disk Disease, Fractures, Osteoarthritis GI Medical History: No Pertinent History History: No Pertinent History Pyscho-Social History: No Pertinent History Reproductive Disorders: No Pertinent History Comment: DROP FOOT RT FOOT - Female History Are you now?: No - Past Surgical History Past Surgical History: Yes Neuro Surgical History: No Pertinent History Cardiac History: No Pertinent History Respiratory Surgery: No Pertinent History GI Surgical History: Cholecystectomy Genitourinary Surgical Hx: No Pertinent History Musculskeletal Surgical Hx: Joint Replacement, Orthopedic Surgery Female Surgical History: No Pertinent History Other Surgical History: R HIP. , RT SHOULDER. 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 - Social History Smoking Status: Never smoker Exposure to second hand smoke: No Alcohol: None Drug Use: none - Physical Exam Vital Signs: Vital Signs - 24 hr Temp Resp BP Pulse Ox 06/25/17 19:18 96 06/25/17 17:12 98.5 F 18 189/81 90 L Oxygen-Last 24 hours O2 Percentage 2 Liters = 28% Oxygen Flowrate (L/min)-RT 2 General Appearance: no apparent distress Neurologic Exam: alert, oriented x 3, cooperative Eye Exam: eyes nml inspection Ears, Nose, Throat Exam: other (linear scar on nose well approximated, no exudate. R cheek mildly erythematous/purple s/p extensive surgery) Neck Exam: normal inspection, non-tender, supple, No lymphadenopathy Respiratory Exam: normal breath sounds, lungs clear, No crackles/rales, No rhonchi, No wheezing Cardiovascular Exam: regular rate/rhythm, normal heart sounds, No murmur Gastrointestinal/Abdomen Exam: soft, normal bowel sounds, No tenderness, No distention, No mass, No guarding, No rebound Back Exam: normal inspection, other (spine is nttp) Extremity Exam: No pedal edema, No swelling Skin Exam: normal color, warm, dry Results - Labs Lab/Micro Results: Lab Results-Last 24 Hours 06/25/17 06/25/17 Range/Units 17:57 17:57 WBC 7.5 (4.0-10.5) K/mm3 RBC 4.20 (4.1-5.4) M/mm3 Hgb 12.2 (12.0-16.0) gm/dl Hct 38.9 (35-47) % MCV 92.6 (78-100) fl MCH 29.0 (26-32) pg MCHC 31.4 L (32-36) g/dl RDW 14.0 (11.5-14.0) % Plt Count 267 (150-450) K/mm3 MPV 9.2 (6-9.5) fl Gran % 69.2 H (36.0-66.0) % Lymphocytes % 19.3 L (24.0-44.0) % Monocytes % 8.4 (0.0-12.0) % Eosinophils % 2.8 (0.00-5.0) % Basophils % 0.3 (0.0-0.4) % Basophils # 0.02 (0-0.4) Sodium 141 (136-145) mEq/L Potassium 3.7 (3.5-5.1) mEq/L Chloride 105 (98-107) mEq/L Carbon Dioxide 25.9 (21-32) mEq/L Anion Gap 13.8 (5-15) MEQ/L BUN 10 (9-20) mg/dL Creatinine 0.75 (0.55-1.30) mg/dl Estimated GFR > 60 ML/MIN Glucose 99 (70-110) MG/DL Calcium 9.2 (8.5-10.1) mg/dL Total Bilirubin 0.30 (0.2-1.0) mg/dL AST 21 (15-37) U/L ALT 13 (12-78) U/L Alkaline Phosphatase 127 H (46-116) U/L Serum Total Protein 7.6 (6.4-8.2) gm/dL Albumin 3.3 L (3.4-5.0) g/dL Amylase 137 H (25-115) U/L Lipase 269 (73-393) U/L - Other Procedures and Tests Respiratory Therapy 06/25/17 19:50 Oxygen NASAL CANNULA 2 lpm Assessment/Plan (1) T9 vertebral fracture Current Visit: Yes Status: Acute Qualifiers: Encounter type: initial encounter Fracture morphology: wedge compression Assessment & Plan: I'm actually unsure if this fracture is causing her pain, as the pain on palpation is lateral to the spine on the R. However this is certainly the most definite finding radiographically since her "fall," so I will consult Dr. Gilbert to see if he thinks kyphoplasty (or any other procedure) would be helpful. I discussed this with the patient and she is in agreement. Code(s): S22.079A - UNSP FRACTURE OF T9-T10 VERTEBRA, INIT FOR CLOS FX (2) Intractable back pain Current Visit: Yes Status: Acute Assessment & Plan: on IV morphine currently; ok to resume home norco when tolerating po. Code(s): M54.9 - DORSALGIA, UNSPECIFIED (3) Vomiting Current Visit: Yes Status: Acute Qualifiers: Vomiting type: unspecified Vomiting Intractability: intractable Nausea presence: with nausea Qualified Code(s): R11.2 - Nausea with vomiting, unspecified Assessment & Plan: IV zofran here. She did not vomit during the interview. On admission when transferring to bed she was vomiting. May be related to her swallowing difficulties. Code(s): R11.10 - VOMITING, UNSPECIFIED (4) Swallowing difficulty Current Visit: No Status: Acute Qualifiers: Dysphagia type: pharyngoesophageal phase Qualified Code(s): R13.14 - Dysphagia, pharyngoesophageal phase Assessment & Plan: long term care phlebotomist, but worse. Will consult surgery for EGD. I explained that she would not remember the EGD and it should not be painful and she was willing to do the procedure. Code(s): R13.10 - DYSPHAGIA, UNSPECIFIED (5) HTN (hypertension) Current Visit: No Status: Chronic Qualifiers: Hypertension type: essential hypertension Qualified Code(s): I10 - Essential (primary) hypertension Assessment & Plan: resume home meds when able. Code(s): I10 - ESSENTIAL (PRIMARY) HYPERTENSION (6) DVT prophylaxis Current Visit: Yes Status: Acute Assessment & Plan: Will start lovenox 40mg SQ daily after her surgery and ortho consults/ procedures. Code(s): MHI0336 -
[2017-06-25] MEDS: xanAX 0.5 MG PO SCH (22:30)
[2017-06-25] MEDS: REQUIP 2MG TAB PO SCH (22:35)
[2017-06-25 23:01] LABS: Bilirubin NEGATIVE (NEGATIVE); Blood NEGATIVE Ery/ul (0-5); COMPLETE URINE MICROSCOPIC? NO; Collection Type CLEAN CATCH; Glucose NEGATIVE (NEGATIVE); Leukocyte Esterase NEGATIVE (NEGATIVE)
[2017-06-26] MEDS: Norco 10/325 MG Tablet PO PRN ×3 (01:40→22:00)
[2017-06-26] MEDS: Lactated Ringers 1,000 ML IV SCH ×3 (05:26→23:40)
[2017-06-26] MEDS ORDERED: DIPRIVAN 200 MG/20 ML IV ONE (08:00)
[2017-06-26] MEDS ORDERED: ATROPINE SULFATE 1MG IV ONE (08:00)
[2017-06-26] MEDS: SYNTHROID 75 MCG PO SCH (10:42)
[2017-06-26] MEDS: Zestril 5 MG PO SCH (10:43)
[2017-06-26] MEDS: Cymbalta 30 MG Capsule PO SCH ×2 (10:43→23:37)
[2017-06-26] MEDS: xanAX 0.25 MG PO SCH (10:43)
--- NOTE | 2017-06-26 13:39 | OP ---
SURGERY DATE/TIME: 06/26/2017 0835 PREOPERATIVE DIAGNOSIS: Vomiting, lack of eating. POSTOPERATIVE DIAGNOSIS: Three strictures an upper esophageal stricture, lower esophageal strictures and pyloric stricture. PROCEDURE: EGD with balloon dilatation. Balloon size 12 to first stage at the upper esophagus, at the lower esophagus and at the pylorus. SURGEON: Santiago Enriquez M.D. ANESTHESIA: MAC. INDICATION: The patient is an 86 year-old and has the lining of esophagus and stomach consistent with this. DESCRIPTION OF PROCEDURE: Second portion of the duodenum was normal. The scope initially could not be passed through the cricopharyngeal junction but the aperture was seen. The balloon was placed. It was insufflated to first stage and then the scope was able to be followed the balloon down the esophagus. This upper stricture was quite tight probably size 18 to 20 initially. It was clearly smaller than the scope. Esophagogastric junction was about a size 30. It was dilated to size 40 with the 12 balloon to a first stage. The pylorus the scope could not pass but was close. The balloon was insufflated and the scope was able to be pulled through. The patient tolerated the procedure satisfactorily. She was started on full liquids.
[2017-06-26] MEDS: Zofran 4 MG/2 ML VIAL IV PRN (17:09)
--- NOTE | 2017-06-26 22:19 | PCM.NOTE ---
Date and Time: 06/26/172209 Subjective Assessment: Pt had EGD this morning wtih Dr. Enriquez, thank you, had strictures in3 places which were relieved during the scope. She says she feels better physically, still having back pain, but has not eaten today. She is very worried about her bills. - Review of Systems Constitutional: No Symptoms Musculoskeletal: Back Pain OBJECTIVE DATA Vital Signs: Vital Signs - 24 hr Temp Pulse Resp BP Pulse Ox 06/26/17 20:00 98.0 F 83 18 150/65 91 L 06/26/17 17:25 92 L 06/26/17 16:00 98.4 F 80 16 162/74 98 06/26/17 12:00 98.1 F 83 16 148/67 97 06/26/17 10:20 99.1 F 67 16 181/74 94 L 06/26/17 09:00 99.1 F 82 18 195/74 94 L 06/26/17 08:22 98.4 F 87 16 163/74 98 06/26/17 06:59 98.4 F 87 16 163/74 98 06/26/17 04:00 97.9 F 79 16 151/69 93 L 06/25/17 23:46 98.2 F 63 17 145/67 95 Oxygen-Last 24 hours O2 Percentage 2 Liters = 28% O2 Percentage 2 Liters = 28% O2 Percentage 2 Liters = 28% O2 Percentage 2 Liters = 28% O2 Percentage 2 Liters = 28% O2 Percentage 2 Liters = 28% O2 Percentage 2 Liters = 28% O2 Percentage 2 Liters = 28% O2 Percentage 2 Liters = 28% Pain Assessment - Last Documented Pain Intensity 7 Pain Scale Used 0-10 Pain Scale Intake and Output: Intake & Output 06/24/17 06/25/17 06/26/17 06/27/17 11:59 11:59 11:59 11:59 Intake Total 912 360 Output Total 600 1000 Balance 312 -640 Weight 48.807 kg Lab Results: Lab Results-Last 24 Hours 06/25/17 Range/Units 22:54 Ur Collection Type CLEAN CATCH Urine Color YELLOW (YELLOW) Urine Appearance CLEAR (CLEAR) Urine pH 6.0 (5-6) Ur Specific Gustavus 1.015 (1.005-1.025) Urine Protein NEGATIVE (Negative) Urine Ketones MODERATE (NEGATIVE) Urine Blood NEGATIVE (0-5) Denilson/ul Urine Nitrite NEGATIVE (NEGATIVE) Urine Bilirubin NEGATIVE (NEGATIVE) Urine Urobilinogen NORMAL (0-1) mg/dL Ur Leukocyte Esterase NEGATIVE (NEGATIVE) Urine Glucose NEGATIVE (NEGATIVE) mg/dL Specimen Received 06/25/17 2230 Assessment/Plan (1) T9 vertebral fracture Current Visit: Yes Status: Acute Qualifiers: Encounter type: initial encounter Fracture morphology: wedge compression Assessment & Plan: Dr. Gilbert saw the patient today, thank you, and presented her with options. She does not want to have any procedures. Will consult PT and see if pt can be fitted for some sort of back brace or support and start getting out of bed. Code(s): S22.079A - UNSP FRACTURE OF T9-T10 VERTEBRA, INIT FOR CLOS FX (2) Intractable back pain Current Visit: Yes Status: Acute Assessment & Plan: Doing better on current pain meds. Code(s): M54.9 - DORSALGIA, UNSPECIFIED (3) Vomiting Current Visit: Yes Status: Resolved Qualifiers: Vomiting type: unspecified Vomiting Intractability: intractable Nausea presence: with nausea Qualified Code(s): R11.2 - Nausea with vomiting, unspecified Code(s): R11.10 - VOMITING, UNSPECIFIED (4) Swallowing difficulty Current Visit: No Status: Acute Qualifiers: Dysphagia type: pharyngoesophageal phase Qualified Code(s): R13.14 - Dysphagia, pharyngoesophageal phase Code(s): R13.10 - DYSPHAGIA, UNSPECIFIED (5) HTN (hypertension) Current Visit: No Status: Chronic Qualifiers: Hypertension type: essential hypertension Qualified Code(s): I10 - Essential (primary) hypertension Code(s): I10 - ESSENTIAL (PRIMARY) HYPERTENSION (6) DVT prophylaxis Current Visit: Yes Status: Acute Code(s): [id number] - (7) Financial difficulties Current Visit: Yes Status: Acute Assessment & Plan: she is exremely worried about her bill, particularly since she is on a fixed income. I'd like for her to talk to discharge planning in the morning about her stay and any possibility of rehab stay (she is in favor of that).
[2017-06-26] MEDS: xanAX 0.5 MG PO SCH (23:29)
[2017-06-26] MEDS: REQUIP 2MG TAB PO SCH (23:30)
[2017-06-27] MEDS ORDERED: APRESOLINE 20 MG/ML INJ IV ONE (00:27)
[2017-06-27] MEDS: SYNTHROID 75 MCG PO SCH (07:51)
[2017-06-27] MEDS: xanAX 0.25 MG PO SCH (07:51)
[2017-06-27] MEDS: Cymbalta 30 MG Capsule PO SCH (07:51)
[2017-06-27] MEDS: Zestril 5 MG PO SCH (07:51)
[2017-06-27] MEDS: Norco 10/325 MG Tablet PO PRN ×2 (07:52→13:54)
[2017-06-27] MEDS: Zofran 4 MG/2 ML VIAL IV PRN ×2 (08:08→13:57)
[2017-06-27 08:32] LABS: Mean Cell Volume 93.9 fl (78-100); Mean Corpuscular Hemoglobin 29.3 pg (26-32); Mean Platelet Volume 9.4 fl (6-9.5); Platelet Count 265 K/mm3 (150-450); Red Blood Count 3.92 M/mm3 (4.1-5.4); Red Cell Distribution Width 13.9 % (11.5-14.0); White Blood Count 10.2 K/mm3 (4.0-10.5)
--- NOTE | 2017-06-27 08:54 | PCM.DS ---
Discharge Summary Date of Admission: 06/25/17 16:23 Admitting Physician: ANUEL QUIROGA Consults: Consults on Case 06/25/17 20:10 Consult Surgery ROUTINE 06/25/17 20:11 Consult Ortho ROUTINE Primary Care Provider: ANUEL QUIROGA Allergies Allergies codeine Adverse Reaction (Verified 06/25/17 16:36) Nausea Hospital Summary - Hospital Course Hospital Course: Pt admitted with vomiting and severe back pain (with T9 fracture). On EGD she was found to have 3 strictures, which were remedied during the procedure). She spoke with Dr. Gilbert about the fracture but opts for no procedures. PT is consulted and she will be discharged to swing bed for therapy. On final discharge she thinks she will go live with her daughter. - Vitals & Intake/Output Vital Signs: Vital Signs Temperature 97.9 F 06/27/17 07:12 Pulse Rate 69 06/27/17 07:12 Respiratory Rate 16 06/27/17 07:12 Blood Pressure 140/63 06/27/17 07:12 O2 Sat by Pulse Oximetry 95 06/27/17 07:12 Oxygen-Last Documented O2 Percentage 3 Liters = 32% Intake & Output: Intake & Output 06/24/17 06/25/17 06/26/17 06/27/17 11:59 11:59 11:59 11:59 Intake Total 912 2469 Output Total 600 1200 Balance 312 1269 Weight 48.807 kg - Lab Result Diagrams: 06/25/17 17:57 06/25/17 17:57 - Procedures and Test Procedures and Tests throughout Hospitalization: Therapy Orders & Screens 06/25/17 19:50 Oxygen NASAL CANNULA 2 lpm Comment: TO KEEP SPO2 >92% Diagnosis: vertabral fx vomiting 06/26/17 22:52 PT Eval & Treat (MD Order) ROUTINE Evaluate: Yes Treat: Yes Reason for Eval:: back pain/fx - is there a back support or brace that may help her? Diagnosis: vertabral fx vomiting Discharge Exam General Appearance: no apparent distress Neurologic Exam: alert, cooperative Skin Exam: warm, dry, other (R face with mild erythema as usual) Ears, Nose, Throat Exam: other (midline nose with sutures intact) Respiratory Exam: normal breath sounds, No crackles/rales, No rhonchi, No wheezing Cardiovascular Exam: regular rate/rhythm, normal heart sounds, murmur (II/ sys murmur) Gastrointestinal/Abdomen Exam: soft, No tenderness, No distention Extremity Exam: No pedal edema, No swelling Final Diagnosis/Problem List - Final Discharge Diagnosis/Problem (1) T9 vertebral fracture Current Visit: Yes Status: Acute Assessment & Plan: will try brace and PT (2) Esophageal stricture Current Visit: Yes Status: Resolved (3) Intractable back pain Current Visit: Yes Status: Acute Assessment & Plan: PT (4) Vomiting Current Visit: Yes Status: Resolved (5) HTN (hypertension) Current Visit: No Status: Chronic (6) DVT prophylaxis Current Visit: Yes Status: Acute Assessment & Plan: will start her on lovenox 40mg SQ daily. (7) Financial difficulties Current Visit: Yes Status: Acute Assessment & Plan: Appreciate discharge planning. - Discharge Disposition: Swing Bed @ [facility] Condition: Stable Prescriptions: No Action Ropinirole HCl [Requip] 3 mg PO HS Alprazolam 0.25 mg [xanAX 0.25 MG] 0.25 mg PO TID PRN PRN PRN Reason: Anxiety Levothyroxine Sodium 75 Mcg [Synthroid 75 Mcg] 75 mcg PO DAILY Duloxetine HCl 30 mg [Cymbalta 30 MG Capsule] 30 mg PO BID Ondansetron [Zofran Odt] 4 mg SL Q4H PRN PRN Reason: Nausea Hydrocodone/Acetaminophen [Jess[place] 10-325 Tablet] 1 each PO TID PRN Lisinopril 5 mg [Zestril 5 MG] 2.5 mg PO DAILY Follow up with: ANUEL QUIROGA [Primary Care Provider] - 1 Week Forms: Patient Portal Information
[2017-06-27 08:58] LABS: ANION GAP 10.4 MEQ/L (5-15); BLOOD UREA NITROGEN 6 mg/dL (9-20); CHLORIDE 102 mEq/L (98-107); Carbon Dioxide 29.2 mEq/L (21-32); Glucose 90 MG/DL (70-110); Potassium 4.1 mEq/L (3.5-5.1); SODIUM 138 mEq/L (136-145)
[2017-06-27] MEDS ORDERED: ENOXAPARIN SODIUM SQ SCH (10:00)
[2017-06-27] MEDS: Lactated Ringers 1,000 ML IV SCH (12:16)
[2017-06-27 12:56] VITALS: BP 136/60; PULSE 70; O2SAT 90
== END 2017-06-27 15:00 | disposition swing bed (61) ==
LOC: MED SURG 16:23
PROVIDERS: ADMIT Family Medicine; ATTEND Family Medicine
PROC: 0D738ZZ Dilation of Lower Esophagus, Via Natural or Artificial Opening Endoscopic (ICD-10-PCS; principal; 2017-06-26)
PROC: 0D778ZZ Dilation of Stomach, Pylorus, Via Natural or Artificial Opening Endoscopic (ICD-10-PCS; 2017-06-26)
PROC: 0D718ZZ Dilation of Upper Esophagus, Via Natural or Artificial Opening Endoscopic (ICD-10-PCS; 2017-06-27)
DX: S22.079A Unspecified fracture of T9-T10 vertebra, initial encounter for closed fracture (principal); W01.198A Fall on same level from slipping, tripping and stumbling with subsequent striking against other object, initial encounter; K22.2 Esophageal obstruction; K31.1 Adult hypertrophic pyloric stenosis; I10 Essential (primary) hypertension; Z59.9 Problem related to housing and economic circumstances, unspecified; R53.1 Weakness; M19.90 Unspecified osteoarthritis, unspecified site; E03.9 Hypothyroidism, unspecified; M54.6 Pain in thoracic spine; R13.14 Dysphagia, pharyngoesophageal phase
CPT/HCPCS: 00740; 36415; 80048; 80053; 81002; 82150; 83690; 85025; 85027; 94760; 99100; C1726; G0378; J0360; J0461; J1650; J2270; J2405; J2704; A9270-GY

== ENCOUNTER 2017-06-27 15:00 | Inpatient (IN) | payer MEDICARE, SELFPAY ==
[2017-06-27] MEDS ORDERED: ROPINIROLE HCL 3 MG PO SCH (22:00)
[2017-06-27] MEDS: Norco 10/325 MG Tablet PO PRN (23:13)
[2017-06-27] MEDS: REQUIP 2MG TAB PO SCH (23:14)
[2017-06-27] MEDS: xanAX 0.5 MG PO SCH (23:15)
[2017-06-27] MEDS: Cymbalta 30 MG Capsule PO SCH (23:16)
[2017-06-28] MEDS: Lactated Ringers 1,000 ML IV SCH ×2 (01:00→13:08)
[2017-06-28] MEDS: Norco 10/325 MG Tablet PO PRN ×2 (07:56→22:32)
[2017-06-28] MEDS: Zofran 4 MG/2 ML VIAL IV PRN ×2 (08:31→17:49)
[2017-06-28] MEDS: Zestril 5 MG PO SCH (09:15)
[2017-06-28] MEDS: SYNTHROID 75 MCG PO SCH (09:15)
[2017-06-28] MEDS: ENOXAPARIN SODIUM SQ SCH (09:15)
[2017-06-28] MEDS: xanAX 0.25 MG PO SCH (09:16)
[2017-06-28] MEDS: Cymbalta 30 MG Capsule PO SCH (09:22)
[2017-06-28] MEDS ORDERED: Aplisol ID SCH (10:00)
[2017-06-28] MEDS: MORPHINE SULFATE 10 MG/ML IV PRN (10:49)
[2017-06-28] MEDS ORDERED: xanAX 0.25 MG PO ONE (13:08)
[2017-06-28] MEDS: REQUIP 2MG TAB PO SCH (22:22)
[2017-06-28] MEDS: xanAX 0.5 MG PO SCH (22:24)
[2017-06-29] MEDS: Lactated Ringers 1,000 ML IV SCH (01:57)
[2017-06-29] MEDS: Norco 10/325 MG Tablet PO PRN ×2 (07:11→23:28)
[2017-06-29] MEDS: SYNTHROID 75 MCG PO SCH (10:48)
[2017-06-29] MEDS: Zestril 5 MG PO SCH (10:49)
[2017-06-29] MEDS: ENOXAPARIN SODIUM SQ SCH (10:49)
[2017-06-29] MEDS: xanAX 0.25 MG PO SCH (10:49)
[2017-06-29] MEDS: Zofran 4 MG/2 ML VIAL IV PRN (12:30)
[2017-06-29] MEDS: xanAX 0.5 MG PO SCH (23:27)
[2017-06-29] MEDS: REQUIP 2MG TAB PO SCH (23:28)
[2017-06-30] MEDS: Lactated Ringers 1,000 ML IV SCH ×2 (02:33→16:08)
[2017-06-30] MEDS: Norco 10/325 MG Tablet PO PRN ×2 (05:02→22:05)
[2017-06-30] MEDS: xanAX 0.25 MG PO SCH (08:43)
[2017-06-30] MEDS: SYNTHROID 75 MCG PO SCH (09:10)
[2017-06-30] MEDS: Zestril 5 MG PO SCH (09:10)
[2017-06-30] MEDS: ENOXAPARIN SODIUM SQ SCH (09:10)
[2017-06-30] MEDS: REQUIP 2MG TAB PO SCH (22:01)
[2017-06-30] MEDS: xanAX 0.5 MG PO SCH (22:02)
[2017-07-01] MEDS: Lactated Ringers 1,000 ML IV SCH (04:32)
[2017-07-01] MEDS: MORPHINE SULFATE 10 MG/ML IV PRN (04:45)
[2017-07-01] MEDS: xanAX 0.25 MG PO SCH (07:41)
[2017-07-01] MEDS: ENOXAPARIN SODIUM SQ SCH (10:14)
[2017-07-01] MEDS: SYNTHROID 75 MCG PO SCH (10:14)
[2017-07-01] MEDS: Zestril 5 MG PO SCH (10:14)
[2017-07-01] MEDS ORDERED: xanAX 0.25 MG PO ONE (13:43)
[2017-07-01] MEDS: REQUIP 2MG TAB PO SCH (22:35)
[2017-07-01] MEDS: xanAX 0.5 MG PO SCH (22:40)
[2017-07-02] MEDS: Norco 10/325 MG Tablet PO PRN (00:39)
--- NOTE | 2017-07-02 08:26 | PCM.NOTE ---
Date and Time: 07/02/17820 Subjective Assessment: Pt has been having less back pain, taking pain pills prn but not often. Tyson po well. Yesterday was able to leave the hospital for her appointment in [place] with the arterial embalmer; she got the stitches out of her nose, and he was pleased with her progress. - Review of Systems Constitutional: No Fever Musculoskeletal: Back Pain Objective Exam General Appearance: no apparent distress, alert Neurologic Exam: oriented x 3, cooperative Skin Exam: normal color, warm, dry Respiratory Exam: normal breath sounds, lungs clear, No crackles/rales, No rhonchi, No wheezing Cardiovascular Exam: regular rate/rhythm, normal heart sounds, No murmur Extremity Exam: normal inspection, No pedal edema, No swelling OBJECTIVE DATA Vital Signs: Vital Signs - 24 hr Temp Pulse Resp BP Pulse Ox 07/02/17 07:23 97.6 F 84 20 138/68 96 07/01/17 20:00 97.8 F 86 20 160/74 92 L Pain Assessment - Last Documented Pain Intensity 8 Pain Scale Used [facility] Intake and Output: Intake & Output 06/29/17 06/30/17 07/01/17 07/02/17 11:59 11:59 11:59 11:59 Intake Total 4306 3021 800 300 Output Total 2050 4200 1150 1200 Balance 2256 -1179 -350 -900 Weight 48.807 kg Assessment/Plan (1) T9 vertebral fracture Current Visit: No Status: Acute Qualifiers: Encounter type: subsequent encounter Fracture type: closed Fracture morphology: wedge compression Fracture healing: with routine healing Qualified Code(s): S22.070D - Wedge compression fracture of T9-T10 vertebra, subsequent encounter for fracture with routine healing Assessment & Plan: She is feeling better. I would like to discuss with PT regarding her progress. She is anxious to go home but I would like to make sure she is stable and getting around well before discharge. She was initially going to go home with her daughter but that plan has changed; she states her daughter is "sick" and she's not going there. Code(s): S22.079A - UNSP FRACTURE OF T9-T10 VERTEBRA, INIT FOR CLOS FX (2) Accidental fall Current Visit: No Status: Acute Qualifiers: Encounter type: subsequent encounter Qualified Code(s): W19.XXXD - Unspecified fall, subsequent encounter Code(s): W19.XXXA - UNSPECIFIED FALL, INITIAL ENCOUNTER (3) HTN (hypertension) Current Visit: No Status: Chronic Qualifiers: Hypertension type: essential hypertension Assessment & Plan: Aside from 2 elevated BP, have been normal since she is on swing bed. On lisinopril 2.5mg po daily. Code(s): I10 - ESSENTIAL (PRIMARY) HYPERTENSION (4) Insomnia Current Visit: Yes Status: Acute Qualifiers: Insomnia type: primary Qualified Code(s): F51.01 - Primary insomnia Assessment & Plan: Will decrease her pm xanax - would like to try some lunesta at night but we don' t have that at the hospital. If she could get lunesta from outside pharmacy would be OK with her trying that (1mg po qhs prn). Code(s): G47.00 - INSOMNIA, UNSPECIFIED (5) Anxiety Current Visit: Yes Status: Acute Assessment & Plan: I would really like for her to get away from the xanax, and we discussed this. Will start weaning off. Try some low dose buspar for anxiety. Code(s): F41.9 - ANXIETY DISORDER, UNSPECIFIED
[2017-07-02] MEDS: Zestril 5 MG PO SCH (09:23)
[2017-07-02] MEDS: xanAX 0.25 MG PO SCH ×2 (09:23→21:18)
[2017-07-02] MEDS: SYNTHROID 75 MCG PO SCH (09:24)
[2017-07-02] MEDS: ENOXAPARIN SODIUM SQ SCH (09:24)
[2017-07-02] MEDS: BUSPAR 5 MG PO SCH ×2 (09:27→21:18)
[2017-07-02] MEDS: REQUIP 2MG TAB PO SCH (21:17)
[2017-07-03] MEDS: Zestril 5 MG PO SCH (09:59)
[2017-07-03] MEDS: SYNTHROID 75 MCG PO SCH (10:00)
[2017-07-03] MEDS: xanAX 0.25 MG PO SCH ×2 (10:00→23:11)
[2017-07-03] MEDS: BUSPAR 5 MG PO SCH ×2 (10:00→23:12)
[2017-07-03] MEDS: ENOXAPARIN SODIUM SQ SCH (10:01)
[2017-07-03] MEDS: REQUIP 2MG TAB PO SCH (23:11)
[2017-07-04 07:15] VITALS: BP 133/61; PULSE 79; O2SAT 97
[2017-07-04] MEDS: xanAX 0.25 MG PO SCH (07:45)
--- NOTE | 2017-07-04 08:36 | PCM.DS ---
Discharge Summary Date of Admission: 06/27/17 15:00 Admitting Physician: ANUEL QUIROGA Primary Care Provider: ANUEL QUIROGA Allergies Allergies codeine Adverse Reaction (Verified 06/25/17 16:36) Nausea Hospital Summary - Hospital Course Hospital Course: Admitted to swing bed from [facility] for PT - patient with T9 fracture and intractable back pain. She has done very well in therapy and instead of going to live with her daughter, as previously planned,she is going to be discharged to home. She is having very little back pain. - Vitals & Intake/Output Vital Signs: Vital Signs Temperature 98.5 F 07/04/17 07:15 Pulse Rate 79 07/04/17 07:15 Respiratory Rate 16 07/04/17 07:15 Blood Pressure 133/61 07/04/17 07:15 O2 Sat by Pulse Oximetry 97 07/04/17 07:15 Intake & Output: Intake & Output 07/01/17 07/02/17 07/03/17 07/04/17 11:59 11:59 11:59 11:59 Intake Total 800 720 760 720 Output Total 1150 1800 600 Balance -350 -1080 160 720 Weight 48.807 kg - Procedures and Test Procedures and Tests throughout Hospitalization: Therapy Orders & Screens 06/27/17 16:05 PT Eval & Treat (MD Order) ROUTINE Evaluate: Yes Treat: Yes Reason for Eval:: swingbed for strengthening Diagnosis: deconditioning r/t recent PNE,acute back pain,vomiting OT Eval and Treat (MD Order) ROUTINE Comment: Consulting Provider: ANUEL QUIROGA Physician Instructions: Reason For Exam: Evaluate: Yes Treat: Yes Reason for Evaluation: strengthening Diagnosis: deconditioning r/t recent PNE,acute back pain,vomiting Discharge Exam General Appearance: no apparent distress, alert Neurologic Exam: oriented x 3, cooperative Skin Exam: normal color, warm, dry, other (R side of face without erythema; nose without sutures, incision well healed.) Eye Exam: eyes nml inspection Ears, Nose, Throat Exam: pharynx normal, moist mucous membranes, No pharyngeal erythema Neck Exam: normal inspection Respiratory Exam: normal breath sounds, lungs clear, No crackles/rales, No rhonchi, No wheezing Cardiovascular Exam: regular rate/rhythm, normal heart sounds, No murmur Extremity Exam: normal inspection, No pedal edema, No swelling Back Exam: normal inspection Final Diagnosis/Problem List - Final Discharge Diagnosis/Problem (1) T9 vertebral fracture Current Visit: No Status: Acute Assessment & Plan: She has done well with therapy, very little pain now. Home on previous meds, I don't think she will need any more pain medicine and would try to avoid it in this 86 yo woman. (2) Accidental fall Current Visit: No Status: Acute (3) HTN (hypertension) Current Visit: No Status: Chronic Assessment & Plan: home on lisinopril. (4) Insomnia Current Visit: Yes Status: Acute Assessment & Plan: I tried to find another pill for her at night; however lunesta and belsomra are not covered by her insurance. will stick with the xanax for now as she has been on it for years. However will decrease her total daily dose. (5) Anxiety Current Visit: Yes Status: Acute Assessment & Plan: Decrease xanax a bit; she was started on buspar here for underlying anxiety. - Discharge Disposition: Home, Self-Care Condition: Stable Prescriptions: New Buspirone HCl 5 mg [Buspar 5 mg] 2.5 mg PO BID #60 tablet Continue Ropinirole HCl [Requip] 3 mg PO HS Levothyroxine Sodium 75 Mcg [Synthroid 75 Mcg] 75 mcg PO DAILY Ondansetron [Zofran Odt] 4 mg SL Q4H PRN PRN Reason: Nausea Lisinopril 5 mg [Zestril 5 MG] 2.5 mg PO DAILY #30 tablet Changed Alprazolam 0.25 mg [xanAX 0.25 MG] 0.25 mg PO BID PRN PRN #60 tablet PRN Reason: Anxiety Discontinued Hydrocodone/Acetaminophen [Raymond 10-325 Tablet] 1 each PO TID PRN Follow up with: NINA QUINTANA MD [NON-STAFF PHY W/O PRIVILEGES] - 08/05/17 3:50 pm ANUEL QUIROGA [Primary Care Provider] - 07/11/17 10:45 am Forms: Patient Portal Information
[2017-07-04] MEDS: SYNTHROID 75 MCG PO SCH (08:57)
[2017-07-04] MEDS: BUSPAR 5 MG PO SCH (08:57)
[2017-07-04] MEDS: Zestril 5 MG PO SCH (08:58)
[2017-07-04] MEDS: ENOXAPARIN SODIUM SQ SCH (08:58)
[2017-07-09] MEDS ORDERED: Aplisol ID SCH (10:00)
== END 2017-07-04 14:30 | disposition home health service (06) | DRG 552 ==
LOC: MED SURG 15:00
PROVIDERS: ADMIT Family Medicine; ATTEND Family Medicine
DX: S22.079A Unspecified fracture of T9-T10 vertebra, initial encounter for closed fracture (principal); W19.XXXA Unspecified fall, initial encounter; I10 Essential (primary) hypertension; G47.00 Insomnia, unspecified; F41.9 Anxiety disorder, unspecified; M19.90 Unspecified osteoarthritis, unspecified site; E03.9 Hypothyroidism, unspecified; M54.9 Dorsalgia, unspecified; R13.14 Dysphagia, pharyngoesophageal phase
CPT/HCPCS: J1650; J2270; J2405; 97110-GP; A9270-GY

== ENCOUNTER 2017-07-24 17:30 | Inpatient (IN) | payer MEDICARE, SELFPAY ==
[2017-07-24] MEDS ORDERED: Sodium Chloride 0.9% 1000 ML 1,000 ML IV STA (19:23)
[2017-07-24] MEDS ORDERED: Sodium Chloride 0.9% 1000 ML 1,000 ML ONE (19:27)
--- NOTE | 2017-07-24 19:38 | ERPHSYRPT ---
- History of Present Illness Time Seen by Provider: 07/24/17 19:10 Source: patient, family Exam Limitations: no limitations Patient Subjective Stated Complaint: FALL THIS AM AND LAYED ON FLOOR SEVERAL HOURS BEFORE FAMILY FOUND HER. NOW C/O RIGHT HIP AND UPPER LEG PAIN. Triage Nursing Assessment: ARRIVES PER EMS COT. SKIN W/D, COLOR PALE, RESP NONLABORED. NOTED SHORTENING AND ROTATION OF RIGHT LEG. HX PREVIOUS R HIP FX. PEDAL PULSES GOOD. LEGS AND FEET WARM. Physician History: 86 y/o female who lives alone was found by her daughter on the floor for 4 hrs after the patient had a fall. Pt says that she was attempting to use her walker and landed on her right side. Pt complains of right hip and right thigh pain. Pt describes the pain as aching, 4/10, constant, worse with movement and pt has not taken any pain meds. Pt denies hitting her head, neck or back. Pt denies any LOC and is not on any blood thinners. Pt has had falls in the past usually secondary to foot drop. Occurred: this afternoon Reason for Fall: tripped Injuries/Pain Location: lower extremity Loss of Consciousness: no loss of consciousness Quality: aching Severity of Pain-Max: mild Severity of Pain-Current: mild Modifying Factors: Improves With: nothing Associated Symptoms (Fall): denies symptoms Allergies/Adverse Reactions: codeine Adverse Reaction (Verified 06/25/17 16:36) Nausea Home Medications: Ropinirole HCl [Requip] 3 mg PO HS 04/18/13 [History] Levothyroxine Sodium 75 Mcg [Synthroid 75 Mcg] 75 mcg PO DAILY 01/26/15 [ History] Ondansetron [Zofran Odt] 4 mg SL Q4H PRN 11/18/16 [History] Hx Tetanus, Diphtheria Vaccination/Date Given: No Hx Influenza Vaccination/Date Given: Yes Hx Pneumococcal Vaccination/Date Given: Yes - Review of Systems Constitutional: No Fever, No Chills Eyes: No Symptoms Ears, Nose, & Throat: No Symptoms Respiratory: No Cough, No Dyspnea Cardiac: No Chest Pain, No Edema, No Syncope Abdominal/Gastrointestinal: No Abdominal Pain, No Nausea, No Vomiting, No Diarrhea Genitourinary Symptoms: No Dysuria Musculoskeletal: Fall, Joint Pain, Myalgias, No Back Pain, No Neck Pain Skin: No Rash Neurological: No Dizziness, No Focal Weakness, No Sensory Changes Psychological: No Symptoms Endocrine: No Symptoms All Other Systems: Reviewed and Negative - Past Medical History Pertinent Past Medical History: Yes Neurological History: No Pertinent History ENT History: Cataracts Cardiac History: Hypertension Respiratory History: Pneumonia, Other Endocrine Medical History: Hypothyroidism Musculoskeletal History: Arthritis, Degenerative Disk Disease, Fractures, Osteoarthritis GI Medical History: No Pertinent History History: No Pertinent History Psycho-Social History: No Pertinent History Female Reproductive Disorders: No Pertinent History Other Medical History: DROP FOOT RT FOOT - Past Surgical History Past Surgical History: Yes Neuro Surgical History: No Pertinent History Cardiac: No Pertinent History Respiratory: No Pertinent History Gastrointestinal: Cholecystectomy Genitourinary: No Pertinent History Musculoskeletal: Joint Replacement, Orthopedic Surgery Female Surgical History: No Pertinent History Other Surgical History: R HIP. , RT SHOULDER. 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 - Social History Smoking Status: Never smoker Exposure to second hand smoke: No Drug Use: none Patient Lives Alone: Yes - Female History Hx Now: No - Nursing Vital Signs Nursing Vital Signs: Initial Vital Signs Temperature 97.8 F 07/24/17 17:32 Pulse Rate 85 07/24/17 17:32 Respiratory Rate 16 07/24/17 17:32 Blood Pressure 149/65 07/24/17 17:32 O2 Sat by Pulse Oximetry 97 07/24/17 17:32 Pain Scale Pain Intensity 2 - [place] Coma Score Best Eye Response (Delvin): (4) open spontaneously Best Verbal Response (Delvin): (5) oriented Best Motor Response ([place]): (6) obeys commands Delvin Total: 15 - Physical Exam General Appearance: no apparent distress, alert Head Injury: no evidence of injury Eye Exam: PERRL/EOMI ENT Exam: airway nml Neck Exam: normal inspection, No tenderness Respiratory/Chest Exam: normal breath sounds, No chest tenderness, No respiratory distress Cardiovascular Exam: normal heart sounds, regular rate/rhythm Gastrointestinal Exam: soft, No tenderness, No distention, No guarding, No ecchymosis Back Exam: normal inspection, No vertebral tenderness Extremity Exam: normal inspection, pelvis stable, limited range of motion, hip tenderness, pain with movement, No deformities Neurologic Exam: alert, oriented x 3, cooperative, sensation nml, No motor deficits Skin Exam: normal color, warm, dry SpO2 Interpretation: normal SpO2: 94 Oxygen Delivery: Room Air - Course Nursing assessment & vital signs reviewed: Yes EKG Interpreted by Me: RATE (HR 84), NORMAL AXIS, NORMAL INTERVALS, Non- specific ST Changes, Other (LVH) Ordered Tests: Active Orders 24 hr Category Date Time Status Accucheck STAT Care 07/24/17 19:23 Active Agility Instructor STAT Care 07/24/17 19:24 Active EKG-ER Only STAT Care 07/24/17 19:23 Active IV Insertion STAT Care 07/24/17 19:23 Active ABDOMEN AND PELVIS W/0 CONTRAS [CT] Stat Exams 07/24/17 19:26 Taken CERVICAL SPINE WO CONTRAST [CT] Stat Exams 07/24/17 19:24 Taken FEMUR Stat Exams 07/24/17 Taken HEAD WITHOUT CONTRAST [CT] Stat Exams 07/24/17 19:24 Taken CBC W DIFF Stat Lab 07/24/17 20:10 Completed CK-Creatinine Phosphokinase Stat Lab 07/24/17 20:10 Completed CMP Stat Lab 07/24/17 20:10 Completed PROTIME WITH INR Stat Lab 07/24/17 20:45 Completed PTT Stat Lab 07/24/17 20:45 Completed TROPONIN Q3H Lab 07/24/17 20:10 Completed TROPONIN Q3H Lab 07/24/17 22:30 Ordered Medication Summary Discontinued Medications Generic Name Dose Route Start Last Admin Trade Name Freq PRN Reason Stop Dose Admin Sodium Chloride 1,000 mls @ 999 mls/hr 07/24/17 19:23 07/24/17 19:30 Sodium Chloride 0.9% 1000 Ml IV 07/24/17 20:23 999 mls/hr .Q1H1M STA Administration Sodium Chloride Confirm 07/24/17 19:27 Sodium Chloride 0.9% 1000 Ml Administered 07/24/17 19:28 Dose 1,000 mls @ ud .ROUTE .STK-MED ONE Morphine Sulfate 4 mg 07/24/17 20:21 07/24/17 20:40 Morphine Sulfate 4 Mg Inj IV 07/24/17 20:22 4 mg STAT ONE Administration Morphine Sulfate Confirm 07/24/17 20:29 Morphine Sulfate 4 Mg Inj Administered 07/24/17 20:30 Dose 4 mg .ROUTE .STK-MED ONE Morphine Sulfate 4 mg 07/24/17 22:44 Morphine Sulfate 4 Mg Inj IV 07/24/17 22:45 STAT ONE Lab/Rad Data: Laboratory Result Diagrams 07/24/17 20:10 07/24/17 20:10 Laboratory Results 07/24/17 07/24/17 07/24/17 Range/Units 20:45 20:10 20:10 WBC (4.0-10.5) K/mm3 RBC (4.1-5.4) M/mm3 Hgb (12.0-16.0) gm/dl Hct (35-47) % MCV (78-100) fl MCH (26-32) pg MCHC (32-36) g/dl RDW (11.5-14.0) % Plt Count (150-450) K/mm3 MPV (6-9.5) fl Gran % (36.0-66.0) % Lymphocytes % (24.0-44.0) % Monocytes % (0.0-12.0) % Eosinophils % (0.00-5.0) % Basophils % (0.0-0.4) % Basophils # (0-0.4) INR 1.11 (0.8-3.0) APTT 31.2 (25.3-37.0) SECONDS Sodium 139 (136-145) mEq/L Potassium 4.7 (3.5-5.1) mEq/L Chloride 103 (98-107) mEq/L Carbon Dioxide 26.8 (21-32) mEq/L Anion Gap 13.4 (5-15) MEQ/L BUN 15 (9-20) mg/dL Creatinine 0.76 (0.55-1.30) mg/dl Estimated GFR > 60 ML/MIN Glucose 104 (70-110) MG/DL Calcium 8.6 (8.5-10.1) mg/dL Total Bilirubin 0.60 (0.2-1.0) mg/dL AST 26 (15-37) U/L ALT 15 (12-78) U/L Alkaline Phosphatase 108 (46-116) U/L Creatine Kinase 109 (26-192) U/L Troponin I < 0.017 (0.000-0.056) ng/ml Serum Total Protein 7.0 (6.4-8.2) gm/dL Albumin 3.3 L (3.4-5.0) g/dL 10/26/17 Range/Units 20:10 WBC 10.4 (4.0-10.5) K/mm3 RBC 3.79 L (4.1-5.4) M/mm3 Hgb 11.0 L (12.0-16.0) gm/dl Hct 35.9 (35-47) % MCV 94.7 (78-100) fl MCH 29.0 (26-32) pg MCHC 30.6 L (32-36) g/dl RDW 14.9 H (11.5-14.0) % Plt Count 184 (150-450) K/mm3 MPV 10.0 H (6-9.5) fl Gran % 70.7 H (36.0-66.0) % Lymphocytes % 19.5 L (24.0-44.0) % Monocytes % 9.5 (0.0-12.0) % Eosinophils % 0.1 (0.00-5.0) % Basophils % 0.2 (0.0-0.4) % Basophils # 0.02 (0-0.4) INR (0.8-3.0) APTT (25.3-37.0) SECONDS Sodium (136-145) mEq/L Potassium (3.5-5.1) mEq/L Chloride (98-107) mEq/L Carbon Dioxide (21-32) mEq/L Anion Gap (5-15) MEQ/L BUN (9-20) mg/dL Creatinine (0.55-1.30) mg/dl Estimated GFR ML/MIN Glucose (70-110) MG/DL Calcium (8.5-10.1) mg/dL Total Bilirubin (0.2-1.0) mg/dL AST (15-37) U/L ALT (12-78) U/L Alkaline Phosphatase (46-116) U/L Creatine Kinase (26-192) U/L Troponin I (0.000-0.056) ng/ml Serum Total Protein (6.4-8.2) gm/dL Albumin (3.4-5.0) g/dL - Progress Progress: improved Progress Note: 07/24/17 22:46 Pt has relief of pain after receiving morphine 4mg IV X [address] scan head and cervical spine do not show any acute findings. The CT abd/pelvis do not show any acute findings except for an age indeterminate displaced right 11th rib fracture. The labs are unremarkable. We attempted to walk the patient and she was not able to sit up on the bed. Pt has been admitted to Dr Kahn for fall and pain management as well as will require physical therapy - Departure Time of Disposition: 22:48 Departure Disposition: In-patient Admission Clinical Impression: Accidental fall Qualifiers: Encounter type: initial encounter Qualified Code(s): W19.XXXA - Unspecified fall, initial encounter Leg pain Qualifiers: Laterality: right Qualified Code(s): M79.604 - Pain in right leg Condition: Fair Critical Care Time: Yes Critical Care Time(excluding separately billable procedures): 75-104 minutes Referrals: ANUEL KAHN [Primary Care Provider] -
[2017-07-24 20:12] LABS: BASOPHIL % 0.2 % (0.0-0.4); Eosinophil % 0.1 % (0.00-5.0); Granulocytes % 70.7 % (36.0-66.0); Lymphocytes % 19.5 % (24.0-44.0); Mean Cell Volume 94.7 fl (78-100); Monocytes % 9.5 % (0.0-12.0); Platelet Count 184 K/mm3 (150-450); Red Blood Count 3.79 M/mm3 (4.1-5.4); Red Cell Distribution Width 14.9 % (11.5-14.0); White Blood Count 10.4 K/mm3 (4.0-10.5)
[2017-07-24] MEDS ORDERED: MORPHINE SULFATE 4 MG INJ IV ONE ×2 (20:21→22:44)
[2017-07-24] MEDS ORDERED: MORPHINE SULFATE 4 MG INJ ONE ×2 (20:29→22:47)
[2017-07-24 20:31] LABS: ALBUMIN 3.3 g/dL (3.4-5.0); ALKALINE PHOSPHATASE 108 U/L (46-116); ANION GAP 13.4 MEQ/L (5-15); BLOOD UREA NITROGEN 15 mg/dL (9-20); CHLORIDE 103 mEq/L (98-107); Carbon Dioxide 26.8 mEq/L (21-32); Glucose 104 MG/DL (70-110); Potassium 4.7 mEq/L (3.5-5.1); SGOT/AST 26 U/L (15-37); SGPT/ALT 15 U/L (12-78); SODIUM 139 mEq/L (136-145)
[2017-07-24 21:12] LABS: INR 1.11 (0.8-3.0); PROTIME 12.4 SECONDS (9.95-12.35)
[2017-07-24 21:15] LABS: PTT 31.2 SECONDS (25.3-37.0)
[2017-07-24] MEDS ORDERED: Zofran 4 MG/2 ML VIAL IV PRN (22:50)
[2017-07-25 05:43] LABS: BASOPHIL % 0.2 % (0.0-0.4); Eosinophil % 0.6 % (0.00-5.0); Granulocytes % 63.8 % (36.0-66.0); Lymphocytes % 25.4 % (24.0-44.0); Mean Cell Volume 94.5 fl (78-100); Mean Corpuscular Hemoglobin 28.9 pg (26-32); Mean Platelet Volume 9.1 fl (6-9.5); Platelet Count 220 K/mm3 (150-450); Red Blood Count 3.63 M/mm3 (4.1-5.4); Red Cell Distribution Width 14.7 % (11.5-14.0); White Blood Count 8.5 K/mm3 (4.0-10.5)
[2017-07-25 06:13] LABS: ANION GAP 13.2 MEQ/L (5-15); BLOOD UREA NITROGEN 17 mg/dL (9-20); CHLORIDE 104 mEq/L (98-107); Carbon Dioxide 26.3 mEq/L (21-32); Glucose 100 MG/DL (70-110); Potassium 4.2 mEq/L (3.5-5.1); SODIUM 139 mEq/L (136-145)
--- NOTE | 2017-07-25 08:30 | PCM.HP ---
History of Present Illness - Chief Complaint Chief Complaint: fall History of Present Illness: is a 86 year old female who fell in her home yesterday, she has severe right sided pain and was unable to ambulate in the ER after her fall. She is not a good historian, states she simply tripped and fell, happened very suddenly. Denies pain at rest but states there is no way she can get out of bed , has severe pain when she tries to roll over in bed. - Review of Systems Constitutional: No Fever, No Chills Respiratory: No Cough, No Short Of Breath Cardiac: Chest Pain Abdominal/Gastrointestinal: No Abdominal Pain, No Nausea, No Vomiting, No Diarrhea Skin: No Rash All Other Systems: Reviewed and Negative Medications & Allergies Home Medications: Home Medication List Ropinirole HCl [Requip] 3 mg PO HS 04/18/13 [History Confirmed 07/25/17] Levothyroxine Sodium 75 Mcg [Synthroid 75 Mcg] 75 mcg PO DAILY 01/26/15 [ History Confirmed 07/25/17] Ondansetron [Zofran Odt] 4 mg SL Q4H PRN 11/18/16 [History Confirmed 07/25/17] Alprazolam 0.25 mg [xanAX 0.25 MG] 0.25 mg PO BID PRN PRN #60 tablet 07/04 [Rx Confirmed 07/25/17] Duloxetine HCl 30 mg [Cymbalta 30 MG Capsule] 30 mg PO BID 07/25/17 [ History Confirmed 07/25/17] Hydrocodone Bit/Acetaminophen [Hydrocodon-Acetaminophn 10-325] 1 tablet PO Q6H PRN PRN 07/25/17 [History Confirmed 07/25/17] Lisinopril 5 mg [Zestril 5 MG] 5 mg PO DAILY 07/25/17 [History Confirmed 07/25/17] Allergies/Adverse Reactions: Allergies Allergy/AdvReac Type Severity Reaction Status Date / Time codeine AdvReac Nausea Verified 06/25/17 16:36 - Past Medical History Past Medical History: Yes Neurological History: No Pertinent History ENT History: Cataracts Cardiac History: Hypertension Respiratory History: Pneumonia, Other Endocrine Medical History: Hypothyroidism Musculoskelatal History: Arthritis, Degenerative Disk Disease, Fractures, Osteoarthritis GI Medical History: No Pertinent History History: No Pertinent History Pyscho-Social History: No Pertinent History Reproductive Disorders: No Pertinent History Comment: DROP FOOT RT FOOT - Female History Are you now?: No - Past Surgical History Past Surgical History: Yes Neuro Surgical History: No Pertinent History Cardiac History: No Pertinent History Respiratory Surgery: No Pertinent History GI Surgical History: Cholecystectomy Genitourinary Surgical Hx: No Pertinent History Musculskeletal Surgical Hx: Joint Replacement, Orthopedic Surgery Female Surgical History: No Pertinent History Other Surgical History: R HIP. , RT SHOULDER. 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 - Social History Smoking Status: Never smoker Exposure to second hand smoke: No Alcohol: None Drug Use: none - Physical Exam Vital Signs: Vital Signs - 24 hr Temp Pulse Resp BP Pulse Ox 07/25/17 07:25 97.3 F 91 H 16 139/65 90 L 07/25/17 04:00 99.2 F 93 H 18 133/64 95 07/25/17 00:29 98.2 F 101 H 16 123/67 95 07/25/17 00:00 98.2 F 101 H 16 123/67 95 General Appearance: no apparent distress, alert Eye Exam: PERRL/EOMI, eyes nml inspection Respiratory Exam: normal breath sounds, lungs clear, No respiratory distress Cardiovascular Exam: regular rate/rhythm, normal heart sounds, normal peripheral pulses, other (right lateral/anterior chest wall tender) Gastrointestinal/Abdomen Exam: soft, normal bowel sounds, No tenderness, No mass Skin Exam: normal color, warm, dry, No rash Results - Labs Lab/Micro Results: Lab Results-Last 24 Hours 07/24/17 07/25/17 07/25/17 Range/Units 23:30 05:15 05:15 WBC 8.5 (4.0-10.5) K/mm3 RBC 3.63 L (4.1-5.4) M/mm3 Hgb 10.5 L (12.0-16.0) gm/dl Hct 34.3 L (35-47) % MCV 94.5 (78-100) fl MCH 28.9 (26-32) pg MCHC 30.6 L (32-36) g/dl RDW 14.7 H (11.5-14.0) % Plt Count 220 (150-450) K/mm3 MPV 9.1 (6-9.5) fl Gran % 63.8 (36.0-66.0) % Lymphocytes % 25.4 (24.0-44.0) % Monocytes % 10.0 (0.0-12.0) % Eosinophils % 0.6 (0.00-5.0) % Basophils % 0.2 (0.0-0.4) % Basophils # 0.02 (0-0.4) Sodium 139 (136-145) mEq/L Potassium 4.2 (3.5-5.1) mEq/L Chloride 104 (98-107) mEq/L Carbon Dioxide 26.3 (21-32) mEq/L Anion Gap 13.2 (5-15) MEQ/L BUN 17 (9-20) mg/dL Creatinine 0.88 (0.55-1.30) mg/dl Estimated GFR > 60 ML/MIN Glucose 100 (70-110) MG/DL Calcium 8.6 (8.5-10.1) mg/dL Troponin I < 0.017 (0.000-0.056) ng/ml Assessment/Plan (1) Pneumonia Current Visit: Yes Status: Acute Assessment & Plan: chest ct shows rll infiltrate vs atelectasis, in light of 11th rib fracture will treat for pneumonia. Code(s): J18.9 - PNEUMONIA, UNSPECIFIED ORGANISM (2) Rib fracture Current Visit: Yes Status: Acute Assessment & Plan: patient will need rehab stay, unable to care for herself and lives alone. will be unsafe to return home to care for herself Code(s): S22.39XA - FRACTURE OF ONE RIB, UNSP SIDE, INIT FOR CLOS FX (3) Accidental fall Current Visit: Yes Status: Acute Qualifiers: Encounter type: initial encounter Qualified Code(s): W19.XXXA - Unspecified fall, initial encounter Code(s): W19.XXXA - UNSPECIFIED FALL, INITIAL ENCOUNTER (4) Leg pain Current Visit: Yes Status: Acute Qualifiers: Laterality: right Qualified Code(s): M79.604 - Pain in right leg (5) Back pain Current Visit: No Status: Acute Code(s): M54.9 - DORSALGIA, UNSPECIFIED
[2017-07-25] MEDS ORDERED: ZOFRAN ODT 4 MG PO PRN (08:52)
[2017-07-25] MEDS ORDERED: xanAX 0.25 MG PO PRN (08:52)
[2017-07-25] MEDS: SYNTHROID 75 MCG PO SCH (09:11)
[2017-07-25] MEDS: Zestril 5 MG PO SCH (09:11)
[2017-07-25] MEDS: ROCEPHIN 1 Gm-D5w 50 ml Bag** 1 G/50 ML IVPB IV SCH (09:12)
[2017-07-25] MEDS: Cymbalta 30 MG Capsule PO SCH ×2 (09:12→22:07)
[2017-07-25] MEDS: Norco 10/325 MG Tablet PO PRN (09:32)
--- NOTE | 2017-07-25 09:59 | XRAY ---
Exam: 4 views of the right femur from 07/24/2017. Comparison: 4 views of the right femur from 01/24/2015. Indication: Patient fell, right hip pain, prior surgery of right hip. Findings: AP and frog-leg lateral views of the proximal right femur and AP and crosstable lateral images of the distal right femur were obtained. I again note a right total hip replacement. A threaded screw fixes the acetabular cup to the right ischium. I believe there is a new subcoracoid trochanteric oblique fracture through the proximal right femur with significant diastasis of the fracture margins medially on the AP view (about 1.9 cm). This represents a new an unfavorable change from 01/24/2015. The stem component of the prosthesis is not broken. I see no definite loosening involving the distal right femoral stem component. There is no dislocation of the right hip. Old healed fracture deformities of the right superior and inferior pubic rami are again seen. The mid and distal shaft of the right femur appears intact. Advanced tricompartmental osteoarthritis of the right knee is again seen. Superficial femoral artery vascular calcification is noted. The bones are demineralized. Impression: 1. I again see a right total hip replacement without evidence of dislocation or fracture of the prosthesis. 2. However, I believe there is a new sub-trochanteric oblique fracture of the proximal right femur with significant diastasis medially on the AP image as compared to 01/24/2015. This proximal right femur fracture could be acute. 3. Old healed fracture deformities of the right superior and inferior pubic rami are again seen. 4. Stable severe tricompartmental osteoarthritis of the right knee. 5. Severe bone demineralization.
--- NOTE | 2017-07-25 10:09 | XRAY ---
Exam: CT of the head without IV contrast from 07/24/2017. CTDI: 52.42 Comparison: CT of the head without IV contrast from 03/12/2010. Indication: Patient fell striking right side of body. Technique: Non-IV contrast axial images were obtained through the brain. Reconstructed coronal and sagittal images were created and reviewed. Findings: The study was repeated because of motion artifact during the initial part of the exam. The lateral and third ventricles again appear prominent, and may be slightly larger as compared to 03/12/2010. There is also moderate to marked prominence of the cortical sulci and basilar cisterns. These findings are consistent with significant generalized cerebral atrophy. I also note moderate patchy bilateral periventricular and subcortical white matter changes consistent with fairly extensive chronic microvascular disease. An acute territorial low attenuation infarct is not seen. There is no evidence of acute intracranial bleed or abnormal extra-axial fluid collection. The bifrontal CSF space is prominent representing no change, again consistent with atrophy. The calvarium of the skull reveals no acute fracture. Retention cysts are seen within the inferior aspect of both maxillary sinuses there is significant deviation of the posterior aspect of the nasal septum toward the right. The mastoid air cells appear unremarkable. A hearing aid is seen within the left ear. Impression: 1. No acute intracranial bleed or other acute intracranial process is seen. 2. Advanced global atrophy and chronic microvascular disease are again seen. 3. Bilateral retention cysts are seen within the posterior inferior aspect of both maxillary sinuses.
--- NOTE | 2017-07-25 10:45 | XRAY ---
Exam: CT of the cervical spine without IV contrast from 07/24/2017. CTDI: 63.84 Comparison: CT of the cervical spine without IV contrast from 03/12/2010. Indication: 86-year-old female patient fell striking right side of body. Technique: Non-IV contrast axial images were obtained through the cervical spine. Reconstructed coronal and sagittal images were created and reviewed. Findings: Incidentally, on the AP CT mechanical maintenance engineer image, an orthopedic fidelina with 3 proximal traversing metallic screws is partially seen within the proximal right humerus. Subtle fracture deformity within the proximal right humerus is seen on the AP CT mechanical maintenance engineer image. Correlate clinically. The cervical spine reveals significant bone demineralization. I see no acute fracture, AP traumatic subluxation, or prevertebral soft tissue swelling, abnormality of the preodontoid space other than degenerative change, or locked facets. There is incomplete segmentation of the T1 and T2 vertebral bodies representing no change from 03/12/2010 (i.e. congenital/developmental block vertebra). I note mild smooth central compression of the superior vertebral endplate of T3 on midline sagittal image #44. This may be old. Moderate to marked multilevel degenerative disc disease, vertebral endplate osteophytes, and advanced facet joint arthropathy are seen with varying degrees of neural foraminal and central canal narrowing. Advanced multilevel uncovertebral joint osteoarthritic changes are seen as well as degenerative change between the odontoid and lateral masses of C1 on each side of midline. These findings are similar to 03/12/2010 Extensive atherosclerotic vascular calcification is seen within the carotid arteries. This has increased as compared to 03/12/2010. The visualized lung apices appear grossly clear. Impression: 1. No acute cervical spine fracture or AP traumatic subluxation is seen. 2. Advanced multilevel degenerative changes are seen throughout the cervical spine representing no significant change from 03/12/2010. 3. Fracture deformity of proximal right humeral shaft with orthopedic hardware partially seen within the proximal right humerus. Correlate clinically.
--- NOTE | 2017-07-25 11:15 | XRAY ---
Exam: CT of the abdomen and pelvis without IV contrast from 07/24/2017. CTDI: 14.89 Comparison: CT of the abdomen and pelvis without IV contrast 06/12/2017. Indication: 86-year-old female fell on right side of body. Complains of right hip pain. History of prior right hip surgery. Technique: Non-IV contrast axial images were obtained through the abdomen and pelvis. Reconstructed coronal and sagittal images were created and reviewed. Findings: Incidentally, on the AP CT publications inspector image, there is an apparent new oblique subtrochanteric fracture of the proximal right femur noted about the proximal stem component of the right hip arthroplasty. This fracture is not seen on the CT publications inspector image from 06/12/2017. I again see a mild elevation of the right hemidiaphragm. Also, there is some mild airspace disease at the posterior lateral right lung base which appears slightly improved from 06/12/2017 and may represent a small amount of residual right lower lobe atelectasis and/or infiltrate. The remainder of the visualized lungs appears clear. The heart size appears within normal limits. Coronary artery vascular calcification is evident as well as vascular calcification within the thoracic aorta. Assessment of the solid organs of the abdomen is mildly limited without the use of IV contrast. No obvious abnormality of the liver or spleen is seen. No intrahepatic biliary duct distention is seen. There is evidence of prior cholecystectomy. Scattered calcified splenic granulomas are again seen. The pancreas and adrenal glands appear unremarkable. I believe there are probably one or 2 duodenal diverticula just to the right of midline on axial images #40 through #43. The kidneys reveal small bilateral peripelvic cysts. No renal calculi or hydronephrosis is seen. No definite renal mass or perinephric hematoma is seen. Dense atherosclerotic vascular calcification is seen within the abdominal aorta. No abdominal aortic aneurysm or abnormal retroperitoneal lymphadenopathy is seen. Vascular calcification is seen within the iliac vessels. The bowel appears nonspecific. A mild amount of scattered stool is seen throughout the colon. There is no evidence of bowel obstruction or bowel wall thickening. No free intraperitoneal air or free intraperitoneal fluid is seen. I cannot exclude a tiny fat-containing umbilical hernia. Otherwise, the anterior abdominal wall appears unremarkable. An atrophied uterus is seen extending to the right of midline. The urinary bladder is mildly distended and appears grossly unremarkable. No enlarged pelvic lymph nodes or other pelvic adnexal abnormality is seen. Artifactual streaking through the lower pelvis is seen as a result of a right hip prosthesis. The skeleton again reveals moderate compression fracture deformities of T12 and L1 and a marked compression fracture deformity of L2. There also appears to be a mild compression fracture deformity of T10 which predominantly involves the central aspect of the inferior vertebral endplate. This latter fracture appears about the same or slightly more prominent as compared to 06/12/2017. Advanced degenerative changes are seen throughout the visualized thoracolumbar spine, most pronounced at L5-S1. I believe there are some scattered rib fracture deformities within the right rib cage. One of these right rib fractures appears acute posterior laterally on axial image #41, involving apparently the right 11th rib. This fracture appeared to be in the process of healing on 06/12/2017, but is now slightly displaced representing an acute refracture injury. There is chronic deformity of both inferior pubic rami consistent with old healed fractures I believe there is also a a chronic fracture deformity involving both superior pubic rami. Lastly, there appears to be some discontinuity of the subtrochanteric proximal right femur which I believe represents an acute fracture about the femoral stem component of the right hip replacement. This appears acute. For example, see axial images #86 and #87 of series #2. Impression: 1. I see no evidence of traumatic injury to the liver, spleen, or kidneys. No free intraperineal air or free intraperitoneal fluid is seen. 2. Chronic mild elevation of the right hemidiaphragm with decreased posterior lateral right basilar atelectasis/infiltrate as compared to 06/12/2017. 3. However, I believe there is an acute refracture of the posterior lateral aspect of the right 11th rib which now reveals minimal displacement. Also, I believe there is a subtrochanteric fracture of the proximal right femur about the proximal stem component of the right hip replacement. Lastly, a mild compression fracture of T10 may be slightly worse as compared to 06/12/2017. Other fractures appear old, as discussed. 4. Numerous other chronic and incidental findings, as discussed above.
[2017-07-25] MEDS: MORPHINE SULFATE 4 MG INJ IV PRN (20:46)
[2017-07-25] MEDS ORDERED: ROPINIROLE HCL 3 MG PO SCH (22:00)
[2017-07-25] MEDS ORDERED: REQUIP 2MG TAB PO SCH (22:00)
[2017-07-26] MEDS: MORPHINE SULFATE 4 MG INJ IV PRN ×2 (04:18→08:59)
[2017-07-26 05:43] LABS: BASOPHIL % 0.3 % (0.0-0.4); Granulocytes % 76.5 % (36.0-66.0); Lymphocytes % 12.3 % (24.0-44.0); Mean Cell Volume 95.2 fl (78-100); Mean Platelet Volume 9.4 fl (6-9.5); Monocytes % 8.9 % (0.0-12.0); Platelet Count 198 K/mm3 (150-450); Red Blood Count 3.36 M/mm3 (4.1-5.4); Red Cell Distribution Width 14.8 % (11.5-14.0); White Blood Count 8.7 K/mm3 (4.0-10.5)
[2017-07-26 05:46] LABS: Mean Corpuscular Hemoglobin 28.8 pg (26-32)
[2017-07-26 06:08] LABS: Potassium 4.1 mEq/L (3.5-5.1)
[2017-07-26 07:13] VITALS: BP 118/58; PULSE 84; O2SAT 96
[2017-07-26] MEDS: ROCEPHIN 1 Gm-D5w 50 ml Bag** 1 G/50 ML IVPB IV SCH (07:23)
[2017-07-26] MEDS: Norco 10/325 MG Tablet PO PRN (07:24)
[2017-07-26] MEDS: Zestril 5 MG PO SCH (07:24)
[2017-07-26] MEDS: SYNTHROID 75 MCG PO SCH (07:24)
[2017-07-26] MEDS: Cymbalta 30 MG Capsule PO SCH (07:24)
--- NOTE | 2017-07-26 08:01 | PCM.DS ---
Discharge Summary Date of Admission: 07/25/17 08:25 Admitting Physician: ANUEL QUIROGA Consults: Consults on Case 07/25/17 11:44 Consult Ortho ROUTINE Primary Care Provider: ANUEL QUIROGA Allergies Allergies codeine Adverse Reaction (Verified 06/25/17 16:36) Nausea Hospital Summary - Hospital Course Hospital Course: patient admitted after a fall, found after admission to have right subcapital hip fracture. also has a right lower 11th rib fracture - Vitals & Intake/Output Vital Signs: Vital Signs Temperature 99 F 07/26/17 07:13 Pulse Rate 84 07/26/17 07:13 Respiratory Rate 20 07/26/17 07:13 Blood Pressure 118/58 07/26/17 07:13 O2 Sat by Pulse Oximetry 96 07/26/17 07:13 Oxygen-Last Documented O2 Percentage 2 Liters = 28% Intake & Output: Intake & Output 07/23/17 07/24/17 07/25/17 07/26/17 11:59 11:59 11:59 11:59 Intake Total 240 360 Output Total 250 Balance 240 110 Weight 45.359 kg - Lab Result Diagrams: 07/26/17 05:20 07/26/17 05:25 Lab Results-Last 24 Hrs: Lab Results-Last 24 Hours 07/25/17 07/26/17 07/26/17 Range/Units 09:10 05:20 05:25 WBC 8.7 (4.0-10.5) K/mm3 RBC 3.36 L (4.1-5.4) M/mm3 Hgb 9.7 L (12.0-16.0) gm/dl Hct 32.0 L (35-47) % MCV 95.2 (78-100) fl MCH 28.8 (26-32) pg MCHC 30.3 L (32-36) g/dl RDW 14.8 H (11.5-14.0) % Plt Count 198 (150-450) K/mm3 MPV 9.4 (6-9.5) fl Gran % 76.5 H (36.0-66.0) % Lymphocytes % 12.3 L (24.0-44.0) % Monocytes % 8.9 (0.0-12.0) % Eosinophils % 2.0 (0.00-5.0) % Basophils % 0.3 (0.0-0.4) % Basophils # 0.03 (0-0.4) Sodium 137 (136-145) mEq/L Potassium 4.1 (3.5-5.1) mEq/L Chloride 102 (98-107) mEq/L Carbon Dioxide 26.0 (21-32) mEq/L Anion Gap 13.0 (5-15) MEQ/L BUN 26 H (9-20) mg/dL Creatinine 1.13 (0.55-1.30) mg/dl Estimated GFR 48 ML/MIN Glucose 102 (70-110) MG/DL Lactic Acid 1.0 (0.4-2.0) Calcium 8.2 L (8.5-10.1) mg/dL - Procedures and Test Procedures and Tests throughout Hospitalization: Therapy Orders & Screens 07/25/17 19:30 Oxygen NASAL CANNULA 2 lpm Comment: Diagnosis: PNEUMONIA, FALL, INTRACTABLE PAIN Discharge Exam General Appearance: no apparent distress, alert Respiratory Exam: normal breath sounds, lungs clear, No respiratory distress Cardiovascular Exam: regular rate/rhythm, normal heart sounds Extremity Exam: other (exquisite tenderness to right lower chest wall and right lateral hip) Final Diagnosis/Problem List - Final Discharge Diagnosis/Problem (1) Fracture of femur, subcapital, closed Current Visit: Yes Status: Acute Assessment & Plan: transferring to [facility] per Dr Gilbert due to need for intervention (2) Pneumonia Current Visit: Yes Status: Acute (3) Rib fracture Current Visit: Yes Status: Acute (4) Accidental fall Current Visit: Yes Status: Acute (5) Leg pain Current Visit: Yes Status: Acute (6) Back pain Current Visit: No Status: Acute - Discharge Disposition: Home, Self-Care Condition: Fair Prescriptions: No Action Ropinirole HCl [Requip] 3 mg PO HS Levothyroxine Sodium 75 Mcg [Synthroid 75 Mcg] 75 mcg PO DAILY Ondansetron [Zofran Odt] 4 mg SL Q4H PRN PRN Reason: Nausea Alprazolam 0.25 mg [xanAX 0.25 MG] 0.25 mg PO BID PRN PRN #60 tablet PRN Reason: Anxiety Lisinopril 5 mg [Zestril 5 MG] 5 mg PO DAILY Hydrocodone Bit/Acetaminophen [Hydrocodon-Acetaminophn 10-325] 1 tablet PO Q6H PRN PRN PRN Reason: Pain Duloxetine HCl 30 mg [Cymbalta 30 MG Capsule] 30 mg PO BID Follow up with: ANUEL QUIROGA [Primary Care Provider] -
== END 2017-07-26 10:15 | disposition short-term general hospital (02) | DRG 193 ==
LOC: ED 17:30 → MED SURG 23:23 → OBSVTOIN 07-25 08:25 → ED 07-25 17:30 → MED SURG 07-25 23:23
PROVIDERS: ADMIT Family Medicine; ATTEND Family Medicine
DX: J18.9 Pneumonia, unspecified organism (principal); S72.011A Unspecified intracapsular fracture of right femur, initial encounter for closed fracture; W01.0XXA Fall on same level from slipping, tripping and stumbling without subsequent striking against object, initial encounter; M79.606 Pain in leg, unspecified; M54.9 Dorsalgia, unspecified; F41.9 Anxiety disorder, unspecified; I10 Essential (primary) hypertension; E03.9 Hypothyroidism, unspecified; M19.90 Unspecified osteoarthritis, unspecified site
CPT/HCPCS: 36000; 36415; 70450; 72125; 73552; 74176; 80048; 80053; 82550; 82962; 83605; 84484; 85025; 85610; 85730; 87040; 93005; 93041; 93268; 94760; 96374; 99285; G0378; J0696; J2270; A9270-GY

== ENCOUNTER 2017-09-16 12:29 | Emergency (ER) | payer MEDICARE, SELFPAY ==
[2017-09-16 12:38] VITALS: O2SAT 98
--- NOTE | 2017-09-16 12:45 | ERPHSYRPT ---
- History of Present Illness Time Seen by Provider: 09/16/17 12:40 Source: patient Exam Limitations: no limitations Patient Subjective Stated Complaint: Pt states "There is nothing wrong with me. ". Medic states "Her daughter called Dr. Kahn because the patient has a fidelina in her right femur and she cannot get her to the bathroom and Dr. Kahn said to bring her here" Triage Nursing Assessment: Pt alert and oriented X 3, skin pwd. Pt able to speak in clear full sentences. no apparent distress. Physician History: 86 y/o female brought in by ambulance after daughter took patient out of rehab the other day after the patient suffered a broken femur s/p fidelina placement. The daughter states that she is unable to ambulate to the bathroom. Pt has been in rehab for the past 2 weeks. Pt says that she was showing improvement while in rehab but says now she can't put weight on the leg. Pt is resting comfortably with no complaints. Timing/Duration: yesterday Occured at: home Associated Symptoms: denies symptoms Allergies/Adverse Reactions: codeine Adverse Reaction (Verified 06/25/17 16:36) Nausea Home Medications: Ropinirole HCl [Requip] 3 mg PO HS 04/18/13 [History] Levothyroxine Sodium 75 Mcg [Synthroid 75 Mcg] 75 mcg PO DAILY 01/26/15 [ History] Ondansetron [Zofran Odt] 4 mg SL Q4H PRN 11/18/16 [History] Duloxetine HCl 30 mg [Cymbalta 30 MG Capsule] 30 mg PO BID 07/25/17 [ History] Hydrocodone Bit/Acetaminophen [Hydrocodon-Acetaminophn 10-325] 1 tablet PO Q6H PRN PRN 07/25/17 [History] Lisinopril 5 mg [Zestril 5 MG] 5 mg PO DAILY 07/25/17 [History] Paroxetine HCl [Paxil] 10 mg PO DAILY 09/16/17 [History] Hx Tetanus, Diphtheria Vaccination/Date Given: Yes Hx Influenza Vaccination/Date Given: Yes Hx Pneumococcal Vaccination/Date Given: Yes Immunizations Up to Date: Yes - Review of Systems Constitutional: No Fever, No Chills Eyes: No Symptoms Ears, Nose, & Throat: No Symptoms Respiratory: No Cough, No Dyspnea Cardiac: No Chest Pain, No Edema, No Syncope Abdominal/Gastrointestinal: No Abdominal Pain, No Nausea, No Vomiting, No Diarrhea Genitourinary Symptoms: No Dysuria Musculoskeletal: No Back Pain, No Neck Pain Skin: No Rash Neurological: No Dizziness, No Focal Weakness, No Sensory Changes Psychological: No Symptoms Endocrine: No Symptoms All Other Systems: Reviewed and Negative - Past Medical History Pertinent Past Medical History: Yes Neurological History: No Pertinent History ENT History: Cataracts Cardiac History: Hypertension Respiratory History: Pneumonia, Other Endocrine Medical History: Hypothyroidism Musculoskeletal History: Arthritis, Degenerative Disk Disease, Fractures, Osteoarthritis GI Medical History: No Pertinent History History: No Pertinent History Psycho-Social History: No Pertinent History Female Reproductive Disorders: No Pertinent History Other Medical History: DROP FOOT RT FOOT - Past Surgical History Past Surgical History: Yes Neuro Surgical History: No Pertinent History Cardiac: No Pertinent History Respiratory: No Pertinent History Gastrointestinal: Cholecystectomy Genitourinary: No Pertinent History Musculoskeletal: Joint Replacement, Orthopedic Surgery Female Surgical History: No Pertinent History Other Surgical History: R HIP. , RT SHOULDER. 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 right femur - Social History Smoking Status: Never smoker Exposure to second hand smoke: No Drug Use: none Patient Lives Alone: No - Female History Hx Last Menstrual Period: none Hx Now: No - Nursing Vital Signs Nursing Vital Signs: Initial Vital Signs Temperature 98.4 F 09/16/17 12:32 Pulse Rate 70 09/16/17 12:32 Respiratory Rate 16 09/16/17 12:32 Blood Pressure 179/74 09/16/17 12:32 O2 Sat by Pulse Oximetry 98 09/16/17 12:32 Pain Scale Pain Intensity 0 - Physical Exam General Appearance: no apparent distress, alert Eye Exam: PERRL/EOMI Ears, Nose, Throat Exam: normal ENT inspection, moist mucous membranes Neck Exam: normal inspection, non-tender, supple Respiratory Exam: normal breath sounds, lungs clear, No chest tenderness, No respiratory distress Cardiovascular Exam: regular rate/rhythm, No edema Gastrointestinal Exam: soft, No tenderness, No distention, No guarding Back Exam: normal inspection, normal range of motion, No vertebral tenderness Extremity Exam: normal inspection Neurologic Exam: alert, oriented x 3, cooperative, assembler semiconductor II-XII nml as tested, sensation nml, No motor deficits Skin Exam: normal color, warm, dry, No rash SpO2: 98 Oxygen Delivery: Room Air - Course Nursing assessment & vital signs reviewed: Yes Ordered Tests: Active Orders 24 hr Category Date Time Status FOOT (2 VIEWS) Stat Exams 09/16/17 15:00 Taken CBC W DIFF Stat Lab 09/16/17 13:50 Completed CMP Stat Lab 09/16/17 13:50 Completed UA W/RFX UR CULTURE Stat Lab 09/16/17 13:52 Completed Lab/Rad Data: Laboratory Result Diagrams 09/16/17 13:50 09/16/17 13:50 Laboratory Results 09/16/17 09/16/17 09/16/17 Range/Units 13:52 13:50 13:50 WBC 7.8 (4.0-10.5) K/mm3 RBC 3.45 L (4.1-5.4) M/mm3 Hgb 10.2 L (12.0-16.0) gm/dl Hct 33.6 L (35-47) % MCV 97.4 (78-100) fl MCH 29.5 (26-32) pg MCHC 30.4 L (32-36) g/dl RDW 17.2 H (11.5-14.0) % Plt Count 296 (150-450) K/mm3 MPV 9.2 (6-9.5) fl Gran % 53.2 (36.0-66.0) % Lymphocytes % 35.3 (24.0-44.0) % Monocytes % 9.3 (0.0-12.0) % Eosinophils % 1.8 (0.00-5.0) % Basophils % 0.4 (0.0-0.4) % Basophils # 0.03 (0-0.4) Sodium 136 (136-145) mEq/L Potassium 4.2 (3.5-5.1) mEq/L Chloride 103 (98-107) mEq/L Carbon Dioxide 29.1 (21-32) mEq/L Anion Gap 8.4 (5-15) MEQ/L BUN 10 (9-20) mg/dL Creatinine 0.81 (0.55-1.30) mg/dl Estimated GFR > 60 ML/MIN Glucose 94 (70-110) MG/DL Calcium 8.4 L (8.5-10.1) mg/dL Total Bilirubin 0.40 (0.2-1.0) mg/dL AST 20 (15-37) U/L ALT 10 L (12-78) U/L Alkaline Phosphatase 179 H (46-116) U/L Serum Total Protein 6.9 (6.4-8.2) gm/dL Albumin 2.7 L (3.4-5.0) g/dL Ur Collection Type CATH Urine Color YELLOW (YELLOW) Urine Appearance CLEAR (CLEAR) Urine pH 8.0 (5-6) Ur Specific [place] 1.005 (1.005-1.025) Urine Protein NEGATIVE (Negative) Urine Ketones NEGATIVE (NEGATIVE) Urine Blood NEGATIVE (0-5) [place]/ul Urine Nitrite NEGATIVE (NEGATIVE) Urine Bilirubin NEGATIVE (NEGATIVE) Urine Urobilinogen NORMAL (0-1) mg/dL Ur Leukocyte Esterase NEGATIVE (NEGATIVE) Urine Culture Reflexed NO (NO) Urine Glucose NEGATIVE (NEGATIVE) mg/dL Specimen Received 09/16/17 1350 - Progress Progress: improved Progress Note: 09/16/17 15:13 The patient was able to stand on her own but when she tries to walk there is increase pain of the foot. The x ray of the foot is within normal limits. The rest of the labs are within normal limits. Due to insurance reasons, the patient 's daughter wants to take her mother home. Pt does not fit criteria for admission. The patient will be given a script for norco 5/325 PO QID, dispense: 30. Pt has agreed to F/U with Dr Kahn. - Departure Time of Disposition: 15:15 Departure Disposition: Home Clinical Impression: Leg pain Qualifiers: Laterality: right Qualified Code(s): M79.604 - Pain in right leg Condition: Stable Critical Care Time: No Referrals: ANUEL KAHN [Primary Care Provider] - Instructions: Leg Pain Additional Instructions: Follow up with Dr Kahn in the next few days for further evaluation. Prescriptions: Hydrocodone/Acetaminophen [[place] 5-325 Tablet] 1 each PO QID PRN #30 tablet MDD 4 PRN Reason: Pain
[2017-09-16 13:52] VITALS: PULSE 78
[2017-09-16 14:05] LABS: ADD URINE CULTURE? NO (NO); Bilirubin NEGATIVE (NEGATIVE); Blood NEGATIVE Ery/ul (0-5); COMPLETE URINE MICROSCOPIC? NO; Collection Type CATH; Glucose NEGATIVE (NEGATIVE); Leukocyte Esterase NEGATIVE (NEGATIVE)
[2017-09-16 14:38] LABS: ALBUMIN 2.7 g/dL (3.4-5.0); ALKALINE PHOSPHATASE 179 U/L (46-116); ANION GAP 8.4 MEQ/L (5-15); CHLORIDE 103 mEq/L (98-107); Carbon Dioxide 29.1 mEq/L (21-32); Glucose 94 MG/DL (70-110); Potassium 4.2 mEq/L (3.5-5.1); SGOT/AST 20 U/L (15-37); SGPT/ALT 10 U/L (12-78); SODIUM 136 mEq/L (136-145); Total Protein 6.9 gm/dL (6.4-8.2)
[2017-09-16 14:49] VITALS: BP 149/81
[2017-09-16 14:59] LABS: BASOPHIL % 0.4 % (0.0-0.4); Eosinophil % 1.8 % (0.00-5.0); Granulocytes % 53.2 % (36.0-66.0); Lymphocytes % 35.3 % (24.0-44.0); Mean Cell Volume 97.4 fl (78-100); Mean Corpuscular Hemoglobin 29.5 pg (26-32); Mean Platelet Volume 9.2 fl (6-9.5); Monocytes % 9.3 % (0.0-12.0); Platelet Count 296 K/mm3 (150-450); Red Blood Count 3.45 M/mm3 (4.1-5.4); Red Cell Distribution Width 17.2 % (11.5-14.0); White Blood Count 7.8 K/mm3 (4.0-10.5)
[2017-09-16 15:00] LABS: BLOOD UREA NITROGEN 10 mg/dL (9-20)
[2017-09-16] MEDS ORDERED: NORCO 5/325 MG PO ONE (15:13)
[2017-09-16] MEDS ORDERED: NORCO 5/325 MG ONE (15:14)
--- NOTE | 2017-09-16 15:52 | XRAY ---
Indication: Pain. Comparison: None Portable AP/lateral right foot demonstrates osteopenia, mild first MTP degenerative changes, mild midfoot degenerative changes, and tiny heel spurs. No other bony, articular, or soft tissue abnormalities.
== END 2017-09-16 15:45 | disposition home or self-care (01) ==
LOC: ED 12:29
DX: M79.604 Pain in right leg (principal); I10 Essential (primary) hypertension; Z79.899 Other long term (current) drug therapy
CPT/HCPCS: 36415; 73620; 80053; 81002; 85025; 99284; A9270-GY

== ENCOUNTER 2018-03-13 14:55 | Emergency (ER) | payer MEDICARE ==
--- NOTE | 2018-03-13 15:19 | ERPHSYRPT ---
- History of Present Illness Time Seen by Provider: 03/13/18 15:13 Source: patient, EMS, [facility] records Exam Limitations: no limitations Patient Subjective Stated Complaint: Fall, Right Shoulder and Right Forearm Pain Triage Nursing Assessment: Pt presents to the ED via EMS with complaints of right forearm and right shoulder pain. Pt states she was reaching for her walker when she fell. Pt denies other pains or complaints. Pt denies hitting head. No distress noted, skin PWD. Pt is A&O x4. Physician History: The patient is a right-handed 87-year-old female brought in by ambulance from [facility] where she fell while trying to maneuver her walker. She did not hit her head nor did she lose consciousness. She did hit her right shoulder and her right forearm. She complains of minimal pain to her right shoulder. She has multiple skin tears to her right forearm. She denies numbness or tingling. Her last tetanus vaccination was last year. Her past medical history is significant for depression, hypertension, hypothyroidism, anxiety, and right shoulder fracture. Occurred: just prior to arrival Reason for Fall: tripped, fell from standing pos Injuries/Pain Location: upper extremity (right shoulder and forearm.) Loss of Consciousness: no loss of consciousness Quality: aching Severity of Pain-Max: moderate Severity of Pain-Current: moderate Modifying Factors: Improves With: nothing Associated Symptoms (Fall): extremity injury (right upper extremity) Allergies/Adverse Reactions: codeine Adverse Reaction (Verified 06/25/17 16:36) Nausea Home Medications: Ropinirole HCl [Requip] 3 mg PO HS 04/18/13 [History] Levothyroxine Sodium 75 Mcg [Synthroid 75 Mcg] 75 mcg PO DAILY 01/26/15 [ History] Ondansetron [Zofran Odt] 4 mg SL Q4H PRN 11/18/16 [History] Duloxetine HCl 30 mg [Cymbalta 30 MG Capsule] 30 mg PO BID 07/25/17 [ History] Hydrocodone Bit/Acetaminophen [Hydrocodon-Acetaminophn 10-325] 1 tablet PO Q6H PRN PRN 07/25/17 [History] Lisinopril 5 mg [Zestril 5 MG] 5 mg PO DAILY 07/25/17 [History] Paroxetine HCl [Paxil] 10 mg PO DAILY 09/16/17 [History] Hx Tetanus, Diphtheria Vaccination/Date Given: Yes Hx Influenza Vaccination/Date Given: Yes Hx Pneumococcal Vaccination/Date Given: Yes Immunizations Up to Date: Yes - Review of Systems Constitutional: No Fever, No Chills Eyes: No Symptoms Ears, Nose, & Throat: No Symptoms Respiratory: No Cough, No Dyspnea Cardiac: No Chest Pain, No Edema, No Syncope Abdominal/Gastrointestinal: No Abdominal Pain, No Nausea, No Vomiting, No Diarrhea Genitourinary Symptoms: No Dysuria Musculoskeletal: Fall, Injury Skin: Other (skin tears), No Rash Neurological: No Dizziness, No Focal Weakness, No Sensory Changes Psychological: No Symptoms Endocrine: No Symptoms Hematologic/Lymphatic: No Symptoms Immunological/Allergic: No Symptoms All Other Systems: Reviewed and Negative - Past Medical History Pertinent Past Medical History: Yes Neurological History: No Pertinent History ENT History: Cataracts Cardiac History: Hypertension Respiratory History: Pneumonia, Other Endocrine Medical History: Hypothyroidism Musculoskeletal History: Arthritis, Degenerative Disk Disease, Fractures, Osteoarthritis GI Medical History: No Pertinent History History: No Pertinent History Psycho-Social History: No Pertinent History Female Reproductive Disorders: No Pertinent History Other Medical History: DROP FOOT RT FOOT - Past Surgical History Past Surgical History: Yes Neuro Surgical History: No Pertinent History Cardiac: No Pertinent History Respiratory: No Pertinent History Gastrointestinal: Cholecystectomy Genitourinary: No Pertinent History Musculoskeletal: Joint Replacement, Orthopedic Surgery Female Surgical History: No Pertinent History Other Surgical History: R HIP. , RT SHOULDER. 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 right femur - Social History Smoking Status: Never smoker Exposure to second hand smoke: No Drug Use: none Patient Lives Alone: No - Female History Hx Now: No - Nursing Vital Signs Nursing Vital Signs: Initial Vital Signs Temperature 99.1 F 03/13/18 14:59 Pulse Rate 71 03/13/18 14:59 Respiratory Rate 16 03/13/18 14:59 Blood Pressure 197/70 03/13/18 14:59 O2 Sat by Pulse Oximetry 95 03/13/18 14:59 Pain Scale Pain Intensity 8 - Pyote Coma Score Best Eye Response (Pyote): (4) open spontaneously Best Verbal Response (Pyote): (5) oriented Best Motor Response (Pyote): (6) obeys commands Pyote Total: 15 - Physical Exam General Appearance: no apparent distress, alert Head Injury: no evidence of injury Eye Exam: PERRL/EOMI ENT Exam: airway nml Neck Exam: normal inspection, No tenderness Respiratory/Chest Exam: normal breath sounds, No chest tenderness, No respiratory distress Cardiovascular Exam: normal heart sounds, regular rate/rhythm Gastrointestinal Exam: soft, No tenderness, No distention, No guarding, No ecchymosis Rectal Exam: not done Back Exam: normal inspection, No vertebral tenderness Extremity Exam: pelvis stable, lacerations (multiple long skin tears to right forearm. ), pain with movement (right forearm), No deformities Neurologic Exam: alert, oriented x 3, cooperative, sensation nml, No motor deficits Skin Exam: laceration (multiple long linear skin tears to right forearm and small skin tear to right elbow.) SpO2 Interpretation: normal SpO2: 95 Oxygen Delivery: Room Air - Radiology Exams Right Shoulder X-ray Interpretation: Reviewed by me, Teleradiologist Report, Negative, No Fracture (per Dr Vail) Right Forearm X-ray Interpretation: Reviewed by me, Teleradiologist Report, Negative, No Fracture (per Dr Vail) Ordered Tests: Active Orders 24 hr Category Date Time Status Wound Care STAT Care 03/13/18 15:20 Active FOREARM Stat Exams 03/13/18 15:36 Completed SHOULDER Stat Exams 03/13/18 15:36 Completed - Progress Progress: improved Counseled pt/family regarding: need for follow-up, rad results - Departure Time of Disposition: 16:12 Departure Disposition: Home Clinical Impression: Fall, Skin tear Condition: Stable Critical Care Time: No Referrals: JIMI CASE [Primary Care Provider] - Additional Instructions: You had a fall today. You injured your right shoulder and right forearm. The x -rays did not show any broken bones. You suffered multiple skin tears that were closed with Dermabond and Steri-Strips. Allow the Steri-Strips to fall off on their own. Your tetanus vaccination was up-to-date. Take Keflex 500 mg 4 times a day for 10 days. Take Tylenol 1000 mg every 6-8 hours as needed for pain. Good luck with bingo. Prescriptions: Cephalexin Mh 500 mg [Keflex 500 mg] 1 cap PO QID #40 capsule
--- NOTE | 2018-03-13 16:05 | XRAY ---
Indication: Pain following fall. Comparison: None 2 views of the right forearm demonstrates osteopenia and moderate wrist degenerative changes. No other bony, articular, or soft tissue abnormalities.
--- NOTE | 2018-03-13 16:05 | XRAY ---
Indication: Pain following fall. Comparison: December 23, 2017. 3 views of the right shoulder unchanged again demonstrating osteopenia, degenerative changes, old proximal humeral fracture with intact hardware, lateral humeral head heterotopic ossifications, and old right rib fractures. No new/acute findings.
[2018-03-13] MEDS ORDERED: TYLENOL EXTRA STRENGTH 500 MG PO STA (16:20)
[2018-03-13] MEDS ORDERED: TYLENOL EXTRA STRENGTH 500 MG ONE (16:29)
[2018-03-13 16:43] VITALS: BP 163/75; PULSE 70; O2SAT 98
== END 2018-03-13 16:44 | disposition home or self-care (01) ==
LOC: ED 14:55
DX: S51.811A Laceration without foreign body of right forearm, initial encounter (principal); S51.011A Laceration without foreign body of right elbow, initial encounter; M25.511 Pain in right shoulder; W05.0XXA Fall from non-moving wheelchair, initial encounter; Y92.129 Unspecified place in nursing home as the place of occurrence of the external cause; Z79.899 Other long term (current) drug therapy
CPT/HCPCS: 12006; 73030; 73090; 99284; A9270-GY

== ENCOUNTER 2018-09-20 18:34 | Inpatient (IN) | payer MEDICARE ==
[2018-09-20] MEDS ORDERED: solu-MEDROL 125 MG IV ONE (19:13)
[2018-09-20] MEDS ORDERED: DUONEB 0.5-3 MG/3 ml Neb IH ONE ×2 (19:13→19:47)
[2018-09-20] MEDS ORDERED: solu-MEDROL 125 MG ONE (19:20)
[2018-09-20 19:22] LABS: BASOPHIL % 0.3 % (0.0-0.4); Basophil (Absolute #) 0.02 (0-0.4); Eosinophil % 0.5 % (0.00-5.0); Eosinophil (Absolute #) 0.03 (0-0.5); Granulocyte Absolute (ANC) 3.57 (1.4-6.9); Granulocytes % 59.5 % (36.0-66.0); Hematocrit 38.7 % (35-47); Hemoglobin 12.2 gm/dl (12.0-16.0); Lymphocyte (Absolute #) 1.71 (1.0-4.6); Lymphocytes % 28.5 % (24.0-44.0); Mean Cell Volume 94.9 fl (78-100); Mean Corpuscular Hemoglobin 29.9 pg (26-32); Mean Corpuscular Hgb Concent. 31.5 g/dl (32-36); Mean Platelet Volume 9.5 fl (6-9.5); Monocyte (Absolute #) 0.67 (0.0-1.3); Monocytes % 11.2 % (0.0-12.0); Platelet Count 207 K/mm3 (150-450); Red Blood Count 4.08 M/mm3 (4.1-5.4)
[2018-09-20] MEDS ORDERED: Sodium Chloride 0.9% 1000 ML 1,000 ML IV SCH (19:30)
[2018-09-20] MEDS ORDERED: Sodium Chloride 0.9% 1000 ML 1,000 ML ONE (19:31)
--- NOTE | 2018-09-20 19:33 | ERPHSYRPT ---
- History of Present Illness Time Seen by Provider: 09/20/18 19:29 Source: patient, [facility] Exam Limitations: no limitations, physical impairment Patient Subjective Stated Complaint: pt reports feeling sick for about a week, pt reports she lives at [facility]. pt reports shortness of air and wheezing. Triage Nursing Assessment: pt is aox3, pupils perrl, afebrile, pt is short of breath at rest, audible wheezes heard, radial pulses strong and equal, pt flushed, warm dry. slight non pitting edema noted to the bilat lower extremities. Physician History: patient arrives with complaint of wheezing , sob, symptoms for 1 week Timing/Duration: week(s) (1 week) Activities at Onset: none Severity of Dyspnea-Max: moderate Severity of Dyspnea-Current: mild Possible Cause: occasional episodes Modifying Factors: Improves With: nothing Associated Symptoms: cough, wheezing, No constant, No intermittent, No anxiety, No chest pain/discomfort, No edema, No fever, No insomnia, No loss of appetite, No lightheadedness, No weakness, No ankle swelling, No chills, No hemoptysis, No calf pain, No dizziness, No heaviness, No heart racing, No lightheadedness, No leg swelling, No muscle spasms feet, No muscle spasms hands, No painful breathing, No productive cough, No sweating, No tightness, No tingling face, No tingling hands International travel in last 2 weeks: No Allergies/Adverse Reactions: codeine Adverse Reaction (Verified 09/20/18 18:48) Nausea Home Medications: Ropinirole HCl [Requip] 3 mg PO HS 04/18/13 [History] Levothyroxine Sodium 75 Mcg [Synthroid 75 Mcg] 75 mcg PO DAILY 01/26/15 [ History] Ondansetron [Zofran Odt] 4 mg SL Q4H PRN 11/18/16 [History] Duloxetine HCl 30 mg [Cymbalta 30 MG Capsule] 30 mg PO BID 07/25/17 [ History] Hydrocodone Bit/Acetaminophen [Hydrocodon-Acetaminophn 10-325] 1 tablet PO Q6H PRN PRN 07/25/17 [History] Lisinopril 5 mg [Zestril 5 MG] 5 mg PO DAILY 07/25/17 [History] Paroxetine HCl [Paxil] 10 mg PO DAILY 09/16/17 [History] Hx Tetanus, Diphtheria Vaccination/Date Given: No Hx Influenza Vaccination/Date Given: Yes Hx Pneumococcal Vaccination/Date Given: Yes Immunizations Up to Date: Yes - Review of Systems Constitutional: No Fever, No Chills Eyes: No Symptoms Ears, Nose, & Throat: No Symptoms Respiratory: Cough, Wheezing, No Cyanosis, No Dyspnea, No Dyspnea on Exertion ( BURNETT) Cardiac: No Chest Pain, No Edema, No Syncope Abdominal/Gastrointestinal: No Abdominal Pain, No Nausea, No Vomiting, No Diarrhea Genitourinary Symptoms: No Dysuria Musculoskeletal: No Back Pain, No Neck Pain Skin: No Rash Neurological: No Dizziness, No Focal Weakness, No Sensory Changes Psychological: No Symptoms Endocrine: No Symptoms All Other Systems: Reviewed and Negative - Past Medical History Pertinent Past Medical History: Yes Neurological History: No Pertinent History ENT History: Cataracts Cardiac History: Hypertension Respiratory History: Pneumonia, Other Endocrine Medical History: Hypothyroidism Musculoskeletal History: Arthritis, Degenerative Disk Disease, Fractures, Osteoarthritis GI Medical History: No Pertinent History, Esophageal Disorder History: No Pertinent History Psycho-Social History: No Pertinent History Female Reproductive Disorders: No Pertinent History Other Medical History: DROP FOOT RT FOOT - Past Surgical History Past Surgical History: Yes Neuro Surgical History: No Pertinent History Cardiac: No Pertinent History Respiratory: No Pertinent History Gastrointestinal: Cholecystectomy Genitourinary: No Pertinent History Musculoskeletal: Joint Replacement, Orthopedic Surgery Female Surgical History: No Pertinent History Other Surgical History: R HIP. , RT SHOULDER. 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 right femur - Social History Smoking Status: Never smoker Exposure to second hand smoke: No Drug Use: none Patient Lives Alone: No - Female History Hx Now: No - Nursing Vital Signs Nursing Vital Signs: Initial Vital Signs Temperature 99.4 F 09/20/18 18:37 Pulse Rate 73 09/20/18 18:37 Respiratory Rate 28 H 09/20/18 18:37 Blood Pressure 180/83 09/20/18 18:37 O2 Sat by Pulse Oximetry 90 L 09/20/18 18:37 Pain Scale Pain Intensity 0 - Physical Exam General Appearance: no apparent distress, alert Eye Exam: PERRL/EOMI Ears, Nose, Throat Exam: normal ENT inspection, normal pharynx, hearing decreased, No hearing grossly normal (chronically decreased hearing), No abnormal TM (R), No abnormal TM (L) Neck Exam: normal inspection, supple Respiratory Exam: airway intact, diminished breath sounds, wheezing, No lungs clear, No respiratory distress, No prolonged expirations, No crackles/rales, No stridor, No pleural rub Cardiovascular/Chest Exam: normal heart sounds Abdominal/Gastrointestinal Exam: soft, No tenderness, No distention, No mass Extremity Exam: non-tender, normal range of motion, normal inspection, no calf tenderness, no pedal edema Peripheral Pulses Exam: dorsalis-pedis (R): 2+, dorsalis-pedis (L): 2+ Neurologic Exam: alert, oriented x 3, cooperative, web solutions architect II-XII nml as tested, sensation nml, No motor deficits Skin Exam: normal color, warm, No dry SpO2 Interpretation: normal (90%) SpO2: 90 Oxygen Delivery: Room Air - Course Nursing assessment & vital signs reviewed: Yes EKG Interpreted by Me: RATE (70 bpm ), Sinus Rhythm, NORMAL AXIS (ekg: sinus srhythm, 70 bpm, normal axis, no acute st or t wave changes noted. compared to 07/24/2017) - Radiology Exams Chest X-ray Interpretation: Discussed w/ radiologist (Cxr: new right base infiltrate vs. atelectasis and new blunting of the right costophrenic angle, either pleural effusion versus pleural thickening. remaining heart and left lung unremarkable with stable right lung volume loss , aortic calcifications, osteopenia, multilevel thoracolumbar compression fractures, partially visualized right humerus orthopedic hardware, and old right rib fractures. ) Ordered Tests: Active Orders 24 hr Category Date Time Status IV Insertion STAT Care 09/20/18 19:12 Active CHEST 2 VIEWS (PA AND LAT) Stat Exams 09/20/18 19:26 Completed BLOOD CULTURE Stat Lab 09/20/18 19:18 Ordered CBC W DIFF Stat Lab 09/20/18 19:12 Completed CMP Stat Lab 09/20/18 19:12 Completed CULTURE,SPUTUM Stat Lab 09/20/18 19:18 Uncollected D-DIMER QUANTITATION Stat Lab 09/20/18 19:12 Completed NT PRO BNP Stat Lab 09/20/18 19:18 Completed TROPONIN Q3H Lab 09/20/18 19:15 Ordered TROPONIN Q3H Lab 09/20/18 22:15 Ordered VENOUS BLOOD GAS Stat Lab 09/20/18 20:05 Completed Respiratory Nebulizer STAT RT 09/20/18 19:13 Active Respiratory Therapy Assessment DAILY RT 09/20/18 19:48 Active Medication Summary Generic Name Dose Route Start Last Admin Trade Name Michaelq PRN Reason Stop Dose Admin Sodium Chloride 1,000 mls @ 100 mls/hr 09/20/18 19:30 09/20/18 19:34 Sodium Chloride 0.9% 1000 Ml IV 10/20/18 19:29 100 mls/hr .Q10H PACO Administration Ceftriaxone Sodium/Dextrose 1 g in 50 mls @ 100 mls/hr 09/20/18 20:50 Rocephin 1 Gm-D5w 50 Ml Bag IV 09/20/18 21:19 STAT STA Discontinued Medications Generic Name Dose Route Start Last Admin Trade Name Michaelq PRN Reason Stop Dose Admin Acetaminophen 650 mg 09/20/18 19:39 09/20/18 19:48 Tylenol 325 Mg PO 09/20/18 19:40 650 mg STAT STA Administration Acetaminophen Confirm 09/20/18 19:42 Tylenol 325 Mg Administered 09/20/18 19:43 Dose 650 mg .ROUTE .STK-MED ONE Albuterol/Ipratropium 3 ml 09/20/18 19:13 09/20/18 19:49 Duoneb 0.5-3 Mg/3 Ml Neb IH 09/20/18 19:14 3 ml STAT ONE Administration Albuterol/Ipratropium Confirm 09/20/18 19:47 Duoneb 0.5-3 Mg/3 Ml Neb Administered 09/20/18 19:48 Dose 3 ml IH .STK-MED ONE Methylprednisolone Sodium Succinate 125 mg 09/20/18 19:13 09/20/18 19:29 Solu-Medrol 125 Mg IV 09/20/18 19:14 125 mg STAT ONE Administration Methylprednisolone Sodium Succinate Confirm 09/20/18 19:20 Solu-Medrol 125 Mg Administered 09/20/18 19:21 Dose 125 mg .ROUTE .STK-MED ONE Lab/Rad Data: Laboratory Result Diagrams 09/20/18 19:12 09/20/18 19:12 Laboratory Results 09/20/18 09/20/18 09/20/18 Range/Units 20:05 19:18 19:12 WBC (4.0-10.5) K/mm3 RBC (4.1-5.4) M/mm3 Hgb (12.0-16.0) gm/dl Hct (35-47) % MCV (78-100) fl MCH (26-32) pg MCHC (32-36) g/dl RDW (11.5-14.0) % Plt Count (150-450) K/mm3 MPV (6-9.5) fl Gran % (36.0-66.0) % Eos # (Auto) (0-0.5) Absolute Lymphs (auto) (1.0-4.6) Absolute Monos (auto) (0.0-1.3) Lymphocytes % (24.0-44.0) % Monocytes % (0.0-12.0) % Eosinophils % (0.00-5.0) % Basophils % (0.0-0.4) % Absolute Granulocytes (1.4-6.9) Basophils # (0-0.4) D-Dimer 1021 H* (215-500) ng/mL pO2/FiO2 Ratio 21.0 % VBG pH 7.36 (7.32-7.42) VBG pCO2 at Pat Temp 46 (42-55) mm/Hg VBG pO2 at Pat Temp 29 (25-40) mm/Hg VBG HCO3 26.0 (22-28) meq/L VBG O2 Sat (Reece) 63.1 L (95-100) VBG Base Excess 0.2 (-2.0-2.0) VBG Hemoglobin 11.3 VBG Carboxyhemoglobin 2.8 (0.0-6.9) % T HGB POC Potassium 5.0 (3.5-5.1) Sodium (137-145) mmol/L Potassium (3.5-5.1) mmol/L Chloride (98-107) mmol/L Carbon Dioxide (22-30) mmol/L Anion Gap (5-15) MEQ/L BUN (7-17) mg/dL Creatinine (0.52-1.04) mg/dL Estimated GFR ML/MIN Glucose (74-106) mg/dL Calcium (8.4-10.2) mg/dL Total Bilirubin (0.2-1.3) mg/dL AST (14-36) U/L ALT (0-35) U/L Alkaline Phosphatase (38-126) U/L NT-Pro-B Natriuret Pep 393 (0-1800) pg/mL Serum Total Protein (6.3-8.2) g/dL Albumin (3.5-5.0) g/dL 09/20/18 09/20/18 Range/Units 19:12 19:12 WBC 6.0 (4.0-10.5) K/mm3 RBC 4.08 L (4.1-5.4) M/mm3 Hgb 12.2 (12.0-16.0) gm/dl Hct 38.7 (35-47) % MCV 94.9 (78-100) fl MCH 29.9 (26-32) pg MCHC 31.5 L (32-36) g/dl RDW 14.0 (11.5-14.0) % Plt Count 207 (150-450) K/mm3 MPV 9.5 (6-9.5) fl Gran % 59.5 (36.0-66.0) % Eos # (Auto) 0.03 (0-0.5) Absolute Lymphs (auto) 1.71 (1.0-4.6) Absolute Monos (auto) 0.67 (0.0-1.3) Lymphocytes % 28.5 (24.0-44.0) % Monocytes % 11.2 (0.0-12.0) % Eosinophils % 0.5 (0.00-5.0) % Basophils % 0.3 (0.0-0.4) % Absolute Granulocytes 3.57 (1.4-6.9) Basophils # 0.02 (0-0.4) D-Dimer (215-500) ng/mL pO2/FiO2 Ratio % VBG pH (7.32-7.42) VBG pCO2 at Pat Temp (42-55) mm/Hg VBG pO2 at Pat Temp (25-40) mm/Hg VBG HCO3 (22-28) meq/L VBG O2 Sat (Reece) (95-100) VBG Base Excess (-2.0-2.0) VBG Hemoglobin VBG Carboxyhemoglobin (0.0-6.9) % T HGB POC Potassium (3.5-5.1) Sodium 137 (137-145) mmol/L Potassium 5.0 (3.5-5.1) mmol/L Chloride 101 (98-107) mmol/L Carbon Dioxide 25 (22-30) mmol/L Anion Gap 16.6 H (5-15) MEQ/L BUN 22 H (7-17) mg/dL Creatinine 1.27 H (0.52-1.04) mg/dL Estimated GFR 42.2 ML/MIN Glucose 101 (74-106) mg/dL Calcium 9.0 (8.4-10.2) mg/dL Total Bilirubin 0.50 (0.2-1.3) mg/dL AST 37 H (14-36) U/L ALT 18 (0-35) U/L Alkaline Phosphatase 125 (38-126) U/L NT-Pro-B Natriuret Pep (0-1800) pg/mL Serum Total Protein 8.4 H (6.3-8.2) g/dL Albumin 4.5 (3.5-5.0) g/dL - Progress Progress: improved Air Movement: fair Progress Note: 09/20/18 20:58 This is a 87-year-old white female with history of cataracts, hypothyroidism right is him, pneumonia, high blood pressure, arthritis, degenerative disc disease She is noted to be complaining of wheezing short of breath for one week Patient arrives she states she does not feel like she is in acute distress she does state she's been coughing nonproductively she's been feeling ill she has a temperature of 99.4 on arrival she has bilateral wheezes on auscultation in her lung wilkinson Patient's chest x-ray is read by the radiologist is remarkable for a new right base infiltrate versus atelectasis and new blunting of the right costophrenic angle either pleural effusion versus pleural thickening Patient's EKG is remarkable for sinus rhythm 70 bpm normal axis no acute ST or T wave changes are noted patient's d-dimer is elevated at 1021 however patient has a GFR of 43 patient does not appear to have pulmonary embolism she does appear to have pneumonia with COPD with exacerbation this is discussed with Dr. Rizo will not began anticoagulants at this time patient's ABGs show pH 7.36 PCO2 is 46 patient's chemistry remarkable for a sodium 137 potassium 5.0 chloride 101 bicarbonate 25 BUN is 22 creatinine 1.27 GFR is noted to be 42.2 as noted above patient's CBC is stable Blood cultures and sputum cultures have been obtained on this patient patient has been given Rocephin 1 g IV Solu-Medrol 125 mg IV she was also given normal saline at 100 mL per hour and a DuoNeb treatment. Patient still has wheezing in her lung wilkinson I've discussed the case with Dr. Rizo will place the patient on observation telemetry. Will provide continuing IV Solu-Medrol, Rocephin, Zithromax, duo neb treatments. Diagnosis COPD with exacerbation, and right lower lobe pneumonia. - Departure Time of Disposition: 21:02 Departure Disposition: Observation Clinical Impression: COPD with exacerbation Right lower lobe pneumonia Qualifiers: Pneumonia type: due to unspecified organism Qualified Code(s): J18.1 - Lobar pneumonia, unspecified organism Condition: Fair Critical Care Time: No Referrals: JIMI CASE [Primary Care Provider] - Instructions: Chronic Obstructive Pulmonary Disease
--- NOTE | 2018-09-20 19:36 | XRAY ---
Indication: Short of breath and wheezing. Comparison: November 18, 2016. PA/lateral chest demonstrates new right base infiltrate versus atelectasis and new blunting of the right costophrenic angle either pleural effusion versus pleural thickening. Remaining heart and left lung unremarkable with stable right lung volume loss, aortic calcifications, osteopenia, multilevel thoracolumbar compression fractures, partially visualized right humerus orthopedic hardware, and old right rib fractures.
[2018-09-20 19:37] LABS: ALBUMIN 4.5 g/dL (3.5-5.0); ANION GAP 16.6 MEQ/L (5-15); BILIRUBIN,TOTAL 0.5 mg/dL (0.2-1.3); Creatinine 1 1.27 mg/dL (0.52-1.04); Total Protein 8.4 g/dL (6.3-8.2)
[2018-09-20] MEDS ORDERED: TYLENOL 325 MG PO STA (19:39)
[2018-09-20] MEDS ORDERED: TYLENOL 325 MG ONE (19:42)
[2018-09-20 20:12] LABS: VBG BASE EXCESS 0.2 (-2.0-2.0); VBG CARBOXYHEMOGLOBIN 2.8 % T HGB (0.0-6.9); VBG HEMOGLOBIN 11.3; VBG O2 SATURATION 63.1 (95-100); VBG pH 7.36 (7.32-7.42)
[2018-09-20] MEDS ORDERED: ROCEPHIN 1 Gm-D5w 50 ml Bag** 1 G/50 ML IVPB IV STA (20:50)
[2018-09-21] MEDS: Zofran 4 MG/2 ML VIAL IV PRN (00:54)
[2018-09-21] MEDS: solu-MEDROL 125 MG IV SCH ×4 (01:17→17:36)
[2018-09-21] MEDS: BUSPAR 5 MG PO SCH ×2 (01:20→10:02)
[2018-09-21] MEDS: Mirapex 0.5 MG Tablet PO SCH ×2 (01:20→23:59)
[2018-09-21] MEDS: xanAX 0.5 MG PO SCH (01:22)
[2018-09-21] MEDS: NEURONTIN 300 MG PO SCH ×3 (01:22→15:41)
[2018-09-21] MEDS ORDERED: TYLENOL 325 MG PO PRN (04:43)
[2018-09-21] MEDS: NORCO 5/325 MG PO PRN (04:51)
[2018-09-21 06:22] LABS: ALBUMIN 3.8 g/dL (3.5-5.0); ANION GAP 12.6 MEQ/L (5-15); BILIRUBIN,TOTAL 0.3 mg/dL (0.2-1.3); Calcium 8.6 mg/dL (8.4-10.2); Creatinine 1 1.03 mg/dL (0.52-1.04); Potassium 4.8 mmol/L (3.5-5.1); Total Protein 7.2 g/dL (6.3-8.2)
[2018-09-21 06:28] LABS: Hematocrit 34.4 % (35-47); Hemoglobin 10.7 gm/dl (12.0-16.0); Mean Corpuscular Hgb Concent. 31.1 g/dl (32-36); Platelet Count 172 K/mm3 (150-450); Red Blood Count 3.62 M/mm3 (4.1-5.4); Red Cell Distribution Width 13.9 % (11.5-14.0); White Blood Count 3.4 K/mm3 (4.0-10.5)
[2018-09-21 06:29] LABS: Mean Corpuscular Hemoglobin 29.5 pg (26-32)
[2018-09-21] MEDS: Sodium Chloride 0.9% 1000 ML 1,000 ML IV SCH ×2 (07:42→18:09)
[2018-09-21 07:55] LABS: ABSOLUTE NEUTROPHILS 2.66 (1.4-6.9); Lymphocytes 20 % (24-44); Monocyte 1 % (0.0-12.0); Neutrophils 79 % (36.0-66.0); Total Cells Counted 100
[2018-09-21 07:56] LABS: Platelet Estimate NORMAL (NORMAL)
[2018-09-21] MEDS ORDERED: Zithromax 500 MG/ 250 ML NaCl Premix 500 MG/250 ML IVPB IV SCH (10:00)
[2018-09-21] MEDS: ROCEPHIN 1 Gm-D5w 50 ml Bag** 1 G/50 ML IVPB IV SCH ×2 (10:02→21:16)
--- NOTE | 2018-09-21 10:06 | PCM.HP ---
History of Present Illness - Chief Complaint Chief Complaint: Shortness of Breath, Right lower lobe pneumonia, COPD with exacerbation. History of Present Illness: is a 87 year old female pt of Dr. Reno from [place], well known to me, with arthritis, hypotension, hypothyroid, hx esophageal stricture, and osteoporosis with hx fractures, who had been ill for several weeks with cough. No fever. Came in to ER yesterday and found to have RLL pneumonia. Was started on rocephin (zithromax avoided due to med conflicts) and solumedrol. Duonebs. Tmax 99.5. - Review of Systems Constitutional: Weakness, No Fever Respiratory: Cough, Short Of Breath Musculoskeletal: Arthralgias, Back Pain All Other Systems: Reviewed and Negative Medications & Allergies Home Medications: Home Medication List Lisinopril 5 mg [Zestril 5 MG] 5 mg PO DAILY 07/25/17 [History Confirmed 09/21/18] Acetaminophen 325 mg [Tylenol 325 mg] 650 mg PO Q4H PRN PRN 09/21/18 [ History Confirmed 09/21/18] Alprazolam 0.5 mg [xanAX 0.5 MG] 0.5 mg PO HS 09/21/18 [History Confirmed 09/21/18] Buspirone HCl 5 mg [Buspar 5 mg] 5 mg PO BID 09/21/18 [History Confirmed 09/21/18] Gabapentin 600 mg PO TID 09/21/18 [History Confirmed 09/21/18] Hydrocodone Bit/Acetaminophen [[place] 5-325 Tablet] 1 each PO TID PRN PRN [History Confirmed 09/21/18] Levothyroxine Sodium 88 mcg PO DAILY 09/21/18 [History Confirmed 09/21/18] Pramipexole Di-HCl [Mirapex] 0.25 mg PO HS 09/21/18 [History Confirmed 09/21/18] Sertraline HCl 50 mg [Zoloft 50 mg Tablet] 75 mg PO DAILY 09/21/18 [History Confirmed 09/21/18] Allergies/Adverse Reactions: Allergies Allergy/AdvReac Type Severity Reaction Status Date / Time codeine AdvReac Nausea Verified 09/20/18 18:48 - Past Medical History Past Medical History: Yes Neurological History: Peripheral Neuropathy ENT History: Cataracts Cardiac History: Hypertension Respiratory History: Pneumonia, Other Endocrine Medical History: Hypothyroidism Musculoskelatal History: Arthritis, Degenerative Disk Disease, Fractures, Osteoarthritis GI Medical History: No Pertinent History, Esophageal Disorder History: No Pertinent History Pyscho-Social History: No Pertinent History Reproductive Disorders: No Pertinent History Comment: DROP FOOT RT FOOT, Esophageal blockage - Female History Are you now?: No - Past Surgical History Past Surgical History: Yes Neuro Surgical History: No Pertinent History Cardiac History: No Pertinent History Respiratory Surgery: No Pertinent History GI Surgical History: Cholecystectomy Genitourinary Surgical Hx: No Pertinent History Musculskeletal Surgical Hx: Joint Replacement, Orthopedic Surgery Female Surgical History: No Pertinent History Other Surgical History: R HIP. , RT SHOULDER. 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 right femur - Social History Smoking Status: Never smoker Exposure to second hand smoke: No Alcohol: None Drug Use: none - Physical Exam Vital Signs: Vital Signs - 24 hr Temp Pulse Resp BP Pulse Ox 09/21/18 07:46 98.3 F 48 L 16 174/73 96 09/21/18 04:00 98.3 F 56 L 20 152/66 95 09/21/18 00:29 95 09/20/18 23:22 99.5 F 65 22 139/63 93 L 09/20/18 21:47 95 H 17 165/82 94 L 09/20/18 21:40 81 165/82 93 L 09/20/18 21:02 90 L 09/20/18 20:40 77 25 H 160/59 89 L 09/20/18 19:50 66 26 H 173/70 100 09/20/18 19:49 65 22 96 09/20/18 19:25 67 27 H 173/70 89 L 09/20/18 18:37 99.4 F 73 28 H 180/83 90 L Oxygen-Last 24 hours O2 Percentage 3 Liters = 32% O2 Percentage 3 Liters = 32% O2 Percentage 2 Liters = 28% O2 Percentage 2 Liters = 28% Oxygen Flowrate (L/min)-RT 2 General Appearance: no apparent distress, alert, cachetic Neurologic Exam: oriented x 3, cooperative Eye Exam: eyes nml inspection Ears, Nose, Throat Exam: moist mucous membranes Neck Exam: normal inspection Respiratory Exam: normal breath sounds, lungs clear, No crackles/rales, No rhonchi, No wheezing Cardiovascular Exam: regular rate/rhythm, normal heart sounds, No murmur Gastrointestinal/Abdomen Exam: soft, normal bowel sounds, No tenderness, No distention, No mass, No guarding, No rebound Back Exam: normal inspection, No rash Extremity Exam: normal inspection, No pedal edema, No swelling Results - Labs Lab/Micro Results: Lab Results-Last 24 Hours 09/20/18 09/20/18 09/20/18 Range/Units 19:12 19:12 19:12 WBC 6.0 (4.0-10.5) K/mm3 RBC 4.08 L (4.1-5.4) M/mm3 Hgb 12.2 (12.0-16.0) gm/dl Hct 38.7 (35-47) % MCV 94.9 (78-100) fl MCH 29.9 (26-32) pg MCHC 31.5 L (32-36) g/dl RDW 14.0 (11.5-14.0) % Plt Count 207 (150-450) K/mm3 MPV 9.5 (6-9.5) fl Gran % 59.5 (36.0-66.0) % Eos # (Auto) 0.03 (0-0.5) Absolute Lymphs (auto) 1.71 (1.0-4.6) Absolute Monos (auto) 0.67 (0.0-1.3) Lymphocytes % 28.5 (24.0-44.0) % Monocytes % 11.2 (0.0-12.0) % Eosinophils % 0.5 (0.00-5.0) % Basophils % 0.3 (0.0-0.4) % Absolute Granulocytes 3.57 (1.4-6.9) Absolute Neutrophils (1.4-6.9) Segmented Neutrophils (36.0-66.0) % Lymphocytes (Manual) (24-44) % Monocytes (Manual) (0.0-12.0) % Basophils # 0.02 (0-0.4) Platelet Estimate (NORMAL) RBC Morphology D-Dimer 1021 H* (215-500) ng/mL pO2/FiO2 Ratio % VBG pH (7.32-7.42) VBG pCO2 at Pat Temp (42-55) mm/Hg VBG pO2 at Pat Temp (25-40) mm/Hg VBG HCO3 (22-28) meq/L VBG O2 Sat (Reece) (95-100) VBG Base Excess (-2.0-2.0) VBG Hemoglobin VBG Carboxyhemoglobin (0.0-6.9) % T HGB POC Potassium (3.5-5.1) Sodium 137 (137-145) mmol/L Potassium 5.0 (3.5-5.1) mmol/L Chloride 101 (98-107) mmol/L Carbon Dioxide 25 (22-30) mmol/L Anion Gap 16.6 H (5-15) MEQ/L BUN 22 H (7-17) mg/dL Creatinine 1.27 H (0.52-1.04) mg/dL Estimated GFR 42.2 ML/MIN Glucose 101 (74-106) mg/dL Calcium 9.0 (8.4-10.2) mg/dL Total Bilirubin 0.50 (0.2-1.3) mg/dL AST 37 H (14-36) U/L ALT 18 (0-35) U/L Alkaline Phosphatase 125 (38-126) U/L Troponin I (0.000-0.034) ng/mL NT-Pro-B Natriuret Pep (0-1800) pg/mL Serum Total Protein 8.4 H (6.3-8.2) g/dL Albumin 4.5 (3.5-5.0) g/dL 09/20/18 09/20/18 09/20/18 Range/Units 19:18 20:05 20:50 WBC (4.0-10.5) K/mm3 RBC (4.1-5.4) M/mm3 Hgb (12.0-16.0) gm/dl Hct (35-47) % MCV (78-100) fl MCH (26-32) pg MCHC (32-36) g/dl RDW (11.5-14.0) % Plt Count (150-450) K/mm3 MPV (6-9.5) fl Gran % (36.0-66.0) % Eos # (Auto) (0-0.5) Absolute Lymphs (auto) (1.0-4.6) Absolute Monos (auto) (0.0-1.3) Lymphocytes % (24.0-44.0) % Monocytes % (0.0-12.0) % Eosinophils % (0.00-5.0) % Basophils % (0.0-0.4) % Absolute Granulocytes (1.4-6.9) Absolute Neutrophils (1.4-6.9) Segmented Neutrophils (36.0-66.0) % Lymphocytes (Manual) (24-44) % Monocytes (Manual) (0.0-12.0) % Basophils # (0-0.4) Platelet Estimate (NORMAL) RBC Morphology D-Dimer (215-500) ng/mL pO2/FiO2 Ratio 21.0 % VBG pH 7.36 (7.32-7.42) VBG pCO2 at Pat Temp 46 (42-55) mm/Hg VBG pO2 at Pat Temp 29 (25-40) mm/Hg VBG HCO3 26.0 (22-28) meq/L VBG O2 Sat (Reece) 63.1 L (95-100) VBG Base Excess 0.2 (-2.0-2.0) VBG Hemoglobin 11.3 VBG Carboxyhemoglobin 2.8 (0.0-6.9) % T HGB POC Potassium 5.0 (3.5-5.1) Sodium (137-145) mmol/L Potassium (3.5-5.1) mmol/L Chloride (98-107) mmol/L Carbon Dioxide (22-30) mmol/L Anion Gap (5-15) MEQ/L BUN (7-17) mg/dL Creatinine (0.52-1.04) mg/dL Estimated GFR ML/MIN Glucose (74-106) mg/dL Calcium (8.4-10.2) mg/dL Total Bilirubin (0.2-1.3) mg/dL AST (14-36) U/L ALT (0-35) U/L Alkaline Phosphatase (38-126) U/L Troponin I < 0.012 (0.000-0.034) ng/mL NT-Pro-B Natriuret Pep 393 (0-1800) pg/mL Serum Total Protein (6.3-8.2) g/dL Albumin (3.5-5.0) g/dL 09/20/18 09/21/18 09/21/18 Range/Units 22:30 05:30 05:30 WBC 3.4 L (4.0-10.5) K/mm3 RBC 3.62 L (4.1-5.4) M/mm3 Hgb 10.7 L (12.0-16.0) gm/dl Hct 34.4 L (35-47) % MCV 95.0 (78-100) fl MCH 29.5 (26-32) pg MCHC 31.1 L (32-36) g/dl RDW 13.9 (11.5-14.0) % Plt Count 172 (150-450) K/mm3 MPV 10.0 H (6-9.5) fl Gran % (36.0-66.0) % Eos # (Auto) (0-0.5) Absolute Lymphs (auto) (1.0-4.6) Absolute Monos (auto) (0.0-1.3) Lymphocytes % (24.0-44.0) % Monocytes % (0.0-12.0) % Eosinophils % (0.00-5.0) % Basophils % (0.0-0.4) % Absolute Granulocytes (1.4-6.9) Absolute Neutrophils 2.66 (1.4-6.9) Segmented Neutrophils 79 H (36.0-66.0) % Lymphocytes (Manual) 20 L (24-44) % Monocytes (Manual) 1 (0.0-12.0) % Basophils # (0-0.4) Platelet Estimate NORMAL (NORMAL) RBC Morphology NORMAL D-Dimer (215-500) ng/mL pO2/FiO2 Ratio % VBG pH (7.32-7.42) VBG pCO2 at Pat Temp (42-55) mm/Hg VBG pO2 at Pat Temp (25-40) mm/Hg VBG HCO3 (22-28) meq/L VBG O2 Sat (Reece) (95-100) VBG Base Excess (-2.0-2.0) VBG Hemoglobin VBG Carboxyhemoglobin (0.0-6.9) % T HGB POC Potassium (3.5-5.1) Sodium 138 (137-145) mmol/L Potassium 4.8 (3.5-5.1) mmol/L Chloride 106 (98-107) mmol/L Carbon Dioxide 24 (22-30) mmol/L Anion Gap 12.6 (5-15) MEQ/L BUN 22 H (7-17) mg/dL Creatinine 1.03 (0.52-1.04) mg/dL Estimated GFR 53.7 ML/MIN Glucose 157 H (74-106) mg/dL Calcium 8.6 (8.4-10.2) mg/dL Total Bilirubin 0.30 (0.2-1.3) mg/dL AST 34 (14-36) U/L ALT 18 (0-35) U/L Alkaline Phosphatase 97 (38-126) U/L Troponin I < 0.012 (0.000-0.034) ng/mL NT-Pro-B Natriuret Pep (0-1800) pg/mL Serum Total Protein 7.2 (6.3-8.2) g/dL Albumin 3.8 (3.5-5.0) g/dL - Radiology Impressions Radiology Exams & Impressions: Radiology Procedures Category Date Time Status CHEST 2 VIEWS (PA AND LAT) Stat Exams 09/20/18 19:26 Completed - Other Procedures and Tests Respiratory Therapy 09/20/18 22:34 Oxygen NASAL CANNULA 2 lpm Assessment/Plan (1) Right lower lobe pneumonia Current Visit: Yes Status: Acute Qualifiers: Pneumonia type: due to unspecified organism Qualified Code(s): J18.1 - Lobar pneumonia, unspecified organism Assessment & Plan: On IV rocephin. Appears quite stable. Advised would likely be several days in the hospital making sure she recovers before d/c to [facility]. Code(s): J18.1 - LOBAR PNEUMONIA, UNSPECIFIED ORGANISM (2) DVT prophylaxis Current Visit: No Status: Acute Assessment & Plan: start lovenox 40mg SQ daily. Code(s): [id number] - (3) HTN (hypertension) Current Visit: No Status: Chronic Qualifiers: Hypertension type: essential hypertension Qualified Code(s): I10 - Essential (primary) hypertension Code(s): I10 - ESSENTIAL (PRIMARY) HYPERTENSION (4) DNR (do not resuscitate) Current Visit: Yes Status: Acute Assessment & Plan: DNR form signed.
[2018-09-21] MEDS: Zestril 5 MG PO SCH (12:30)
[2018-09-21] MEDS: SYNTHROID 88 MCG PO SCH (12:31)
[2018-09-21] MEDS: ZOLOFT 50 MG TABLET PO SCH (12:38)
[2018-09-21] MEDS: ENOXAPARIN SODIUM SQ SCH (12:39)
[2018-09-21] MEDS: DUONEB 0.5-3 MG/3 ml Neb IH PRN (18:55)
[2018-09-21] MEDS: Zithromax 500 MG/ 250 ML NaCl Premix 500 MG/250 ML IVPB IV SCH (21:17)
[2018-09-22] MEDS: xanAX 0.5 MG PO SCH
[2018-09-22] MEDS: DUONEB 0.5-3 MG/3 ml Neb IH PRN ×3 (00:18→23:27)
[2018-09-22] MEDS: DUONEB 0.5-3 MG/3 ml Neb IH SCH ×4 (03:53→19:48)
[2018-09-22] MEDS: solu-MEDROL 125 MG IV SCH ×4 (05:19→21:37)
[2018-09-22] MEDS: Sodium Chloride 0.9% 1000 ML 1,000 ML IV SCH (07:39)
[2018-09-22] MEDS: SYNTHROID 88 MCG PO SCH (09:11)
[2018-09-22] MEDS: BUSPAR 5 MG PO SCH ×2 (09:11)
[2018-09-22] MEDS: NEURONTIN 300 MG PO SCH ×3 (09:11→15:37)
[2018-09-22] MEDS: Zestril 5 MG PO SCH ×2 (09:11→10:41)
[2018-09-22] MEDS: ZOLOFT 50 MG TABLET PO SCH (09:11)
[2018-09-22] MEDS: ENOXAPARIN SODIUM SQ SCH (09:11)
[2018-09-22] MEDS ORDERED: xanAX 0.25 MG PO PRN (10:04)
[2018-09-22] MEDS: ROCEPHIN 1 Gm-D5w 50 ml Bag** 1 G/50 ML IVPB IV SCH (21:38)
[2018-09-22] MEDS: Zithromax 500 MG/ 250 ML NaCl Premix 500 MG/250 ML IVPB IV SCH (22:46)
[2018-09-23] MEDS: Mirapex 0.5 MG Tablet PO SCH ×2 (00:10→20:21)
[2018-09-23] MEDS: xanAX 0.5 MG PO SCH ×2 (00:10→20:21)
[2018-09-23] MEDS: NEURONTIN 300 MG PO SCH ×4 (00:10→20:21)
[2018-09-23] MEDS: BUSPAR 5 MG PO SCH ×3 (00:10→20:20)
[2018-09-23] MEDS: Sodium Chloride 0.9% 1000 ML 1,000 ML IV SCH (04:50)
[2018-09-23] MEDS: solu-MEDROL 125 MG IV SCH ×3 (04:50→20:20)
[2018-09-23 05:39] LABS: Hematocrit 32.5 % (35-47); Hemoglobin 10.1 gm/dl (12.0-16.0); Mean Cell Volume 95.6 fl (78-100); Mean Corpuscular Hemoglobin 29.7 pg (26-32); Mean Corpuscular Hgb Concent. 31.1 g/dl (32-36); Mean Platelet Volume 10.2 fl (6-9.5); Platelet Count 167 K/mm3 (150-450); Red Cell Distribution Width 13.9 % (11.5-14.0); White Blood Count 11.2 K/mm3 (4.0-10.5)
[2018-09-23 05:57] LABS: ANION GAP 13.4 MEQ/L (5-15); BLOOD UREA NITROGEN 19 mg/dL (7-17); CHLORIDE 109 mmol/L (98-107); Calcium 8.4 mg/dL (8.4-10.2); Carbon Dioxide 23 mmol/L (22-30); Creatinine 1 0.77 mg/dL (0.52-1.04); Glucose 124 mg/dL (74-106); Potassium 4.2 mmol/L (3.5-5.1); SODIUM 141 mmol/L (137-145)
[2018-09-23] MEDS: DUONEB 0.5-3 MG/3 ml Neb IH SCH ×4 (06:50→19:18)
[2018-09-23 07:32] LABS: Eosinophil 4 % (0.00-3.0); Lymphocytes 20 % (24-44); Monocyte 1 % (0.0-12.0); Neutrophils 75 % (36.0-66.0); Platelet Estimate NORMAL (NORMAL); Total Cells Counted 100
[2018-09-23] MEDS ORDERED: xanAX 0.25 MG PO PRN (08:07)
[2018-09-23] MEDS: Zestril 5 MG PO SCH (09:46)
[2018-09-23] MEDS: SYNTHROID 88 MCG PO SCH (09:46)
[2018-09-23] MEDS: ZOLOFT 50 MG TABLET PO SCH (09:46)
[2018-09-23] MEDS: ENOXAPARIN SODIUM SQ SCH (09:47)
--- NOTE | 2018-09-23 10:10 | PCM.NOTE ---
Date and Time: 09/23/18 1008 Subjective Assessment: patient reports some improvement, still has cough and wheezing but seems to be feeling better. boost ordered per nursing request, patient has not been eating well. Objective Exam General Appearance: no apparent distress, alert Skin Exam: normal color, warm, dry Respiratory Exam: rhonchi, wheezing Cardiovascular Exam: regular rate/rhythm, normal heart sounds Gastrointestinal/Abdomen Exam: soft, No tenderness, No mass Extremity Exam: normal inspection, normal range of motion OBJECTIVE DATA Vital Signs: Vital Signs - 24 hr Temp Pulse Resp BP Pulse Ox 09/23/18 08:00 97.8 F 65 21 187/77 94 L 09/23/18 06:51 56 L 18 94 L 09/23/18 04:00 98.0 F 68 17 124/56 97 09/23/18 03:57 18 09/23/18 00:00 22 09/22/18 23:28 98.2 F 64 24 163/79 96 09/22/18 20:00 20 09/22/18 19:48 55 L 20 97 09/22/18 19:33 97.7 F 56 L 22 143/67 94 L 09/22/18 16:00 98.6 F 67 18 137/63 94 L 09/22/18 15:38 60 20 94 L 09/22/18 11:56 18 09/22/18 11:53 98.6 F 75 18 166/72 94 L 09/22/18 11:14 63 22 95 Oxygen-Last 24 hours O2 Percentage 3 Liters = 32% O2 Percentage 3 Liters = 32% O2 Percentage 3 Liters = 32% O2 Percentage 3 Liters = 32% O2 Percentage 2 Liters = 28% O2 Percentage 2 Liters = 28% Pain Assessment - Last Documented Pain Intensity 0 Pain Scale Used 0-10 Pain Scale,FLACC Intake and Output: Intake & Output 09/20/18 09/21/18 09/22/18 09/23/18 11:59 11:59 11:59 11:59 Intake Total 1100 3574 1913 Output Total 875 1200 300 Balance 225 2374 1613 Weight 52.8 kg 55.4 kg Lab Results: Lab Results-Last 24 Hours 09/23/18 09/23/18 Range/Units 05:20 05:20 WBC 11.2 H (4.0-10.5) K/mm3 RBC 3.40 L (4.1-5.4) M/mm3 Hgb 10.1 L (12.0-16.0) gm/dl Hct 32.5 L (35-47) % MCV 95.6 (78-100) fl MCH 29.7 (26-32) pg MCHC 31.1 L (32-36) g/dl RDW 13.9 (11.5-14.0) % Plt Count 167 (150-450) K/mm3 MPV 10.2 H (6-9.5) fl Segmented Neutrophils 75 H (36.0-66.0) % Lymphocytes (Manual) 20 L (24-44) % Monocytes (Manual) 1 (0.0-12.0) % Eosinophils (Manual) 4 H (0.00-3.0) % Platelet Estimate NORMAL (NORMAL) RBC Morphology NORMAL Sodium 141 (137-145) mmol/L Potassium 4.2 (3.5-5.1) mmol/L Chloride 109 H (98-107) mmol/L Carbon Dioxide 23 (22-30) mmol/L Anion Gap 13.4 (5-15) MEQ/L BUN 19 H (7-17) mg/dL Creatinine 0.77 (0.52-1.04) mg/dL Estimated GFR > 60.0 ML/MIN Glucose 124 H (74-106) mg/dL Calcium 8.4 (8.4-10.2) mg/dL Assessment/Plan (1) COPD with exacerbation Current Visit: Yes Status: Acute Onset Date: ~09/20/18 Assessment & Plan: continue rocephin/zithromax and IV solumedrol due to significant expiratory wheezing. Code(s): J44.1 - CHRONIC OBSTRUCTIVE PULMONARY DISEASE W (ACUTE) EXACERBATION (2) Right lower lobe pneumonia Current Visit: Yes Status: Acute Onset Date: ~09/20/18 Qualifiers: Pneumonia type: due to unspecified organism Qualified Code(s): J18.1 - Lobar pneumonia, unspecified organism Assessment & Plan: continue rocephin and zithromax Code(s): J18.1 - LOBAR PNEUMONIA, UNSPECIFIED ORGANISM (3) DNR (do not resuscitate) Current Visit: Yes Status: Acute Onset Date: ~09/20/18
[2018-09-23] MEDS: ROCEPHIN 1 Gm-D5w 50 ml Bag** 1 G/50 ML IVPB IV SCH (20:20)
[2018-09-23] MEDS: Zithromax 500 MG/ 250 ML NaCl Premix 500 MG/250 ML IVPB IV SCH (20:20)
[2018-09-23] MEDS: DUONEB 0.5-3 MG/3 ml Neb IH PRN (23:47)
[2018-09-24] MEDS: NORCO 5/325 MG PO PRN (00:53)
[2018-09-24] MEDS: Sodium Chloride 0.9% 1000 ML 1,000 ML IV SCH (03:04)
[2018-09-24 05:58] LABS: Hematocrit 32.5 % (35-47); Hemoglobin 10.2 gm/dl (12.0-16.0); Mean Cell Volume 93.9 fl (78-100); Mean Corpuscular Hgb Concent. 31.4 g/dl (32-36); Mean Platelet Volume 10.3 fl (6-9.5); Platelet Count 168 K/mm3 (150-450); Red Blood Count 3.46 M/mm3 (4.1-5.4); Red Cell Distribution Width 13.9 % (11.5-14.0); White Blood Count 7.4 K/mm3 (4.0-10.5)
[2018-09-24 06:15] LABS: Mean Corpuscular Hemoglobin 29.4 pg (26-32)
[2018-09-24 06:24] LABS: ALBUMIN 3.6 g/dL (3.5-5.0); ALKALINE PHOSPHATASE 75 U/L (38-126); ANION GAP 12.7 MEQ/L (5-15); BLOOD UREA NITROGEN 19 mg/dL (7-17); CHLORIDE 106 mmol/L (98-107); Calcium 8.5 mg/dL (8.4-10.2); Carbon Dioxide 25 mmol/L (22-30); Creatinine 1 0.78 mg/dL (0.52-1.04); Glucose 125 mg/dL (74-106); Potassium 4.2 mmol/L (3.5-5.1); SGOT/AST 74 U/L (14-36); SGPT/ALT 68 U/L (0-35); SODIUM 139 mmol/L (137-145); Total Protein 6.6 g/dL (6.3-8.2)
[2018-09-24] MEDS: solu-MEDROL 125 MG IV SCH ×3 (06:24→22:53)
[2018-09-24] MEDS: DUONEB 0.5-3 MG/3 ml Neb IH SCH ×5 (07:35→18:50)
[2018-09-24] MEDS: SYNTHROID 88 MCG PO SCH (08:10)
[2018-09-24] MEDS: ZOLOFT 50 MG TABLET PO SCH (08:10)
[2018-09-24] MEDS: Zestril 5 MG PO SCH (08:10)
[2018-09-24] MEDS: BUSPAR 5 MG PO SCH ×2 (08:10→22:53)
[2018-09-24] MEDS: ENOXAPARIN SODIUM SQ SCH (08:11)
[2018-09-24] MEDS: NEURONTIN 300 MG PO SCH ×3 (08:11→22:53)
[2018-09-24 08:36] LABS: Lymphocytes 16 % (24-44); Neutrophils 84 % (36.0-66.0); Platelet Estimate NORMAL (NORMAL); Total Cells Counted 100
--- NOTE | 2018-09-24 09:18 | PCM.NOTE ---
Date and Time: 09/24/18915 Subjective Assessment: patient reports she feels as though her breathing and wheezing are improving. bp very high this am. tolerating po, no new complaints Objective Exam General Appearance: no apparent distress, alert Skin Exam: normal color, warm, dry Respiratory Exam: prolonged expirations, wheezing Cardiovascular Exam: regular rate/rhythm, normal heart sounds Gastrointestinal/Abdomen Exam: soft, No tenderness, No mass Extremity Exam: normal inspection, normal range of motion OBJECTIVE DATA Vital Signs: Vital Signs - 24 hr Temp Pulse Resp BP Pulse Ox 09/24/18 08:55 95 09/24/18 07:58 70 190/82 09/24/18 07:53 97.4 F 66 18 220/93 94 L 09/24/18 07:38 60 22 95 09/24/18 04:15 97.8 F 68 20 146/69 95 09/24/18 00:10 98.3 F 60 24 153/69 96 09/23/18 23:48 67 20 93 L 09/23/18 20:23 97.9 F 61 20 167/80 96 09/23/18 20:00 20 09/23/18 19:20 58 L 18 94 L 09/23/18 16:00 98.5 F 59 L 18 167/74 94 L 09/23/18 15:10 61 18 93 L 09/23/18 12:00 97.7 F 65 20 184/77 94 L 09/23/18 11:17 67 22 94 L Oxygen-Last 24 hours O2 Percentage 3 Liters = 32% O2 Percentage 3 Liters = 32% O2 Percentage 3 Liters = 32% O2 Percentage 2 Liters = 28% O2 Percentage 3 Liters = 32% Pain Assessment - Last Documented Pain Intensity 0 Pain Scale Used 0-10 Pain Scale Intake and Output: Intake & Output 09/21/18 09/22/18 09/23/18 09/24/18 11:59 11:59 11:59 11:59 Intake Total 1100 3574 1913 1966 Output Total 875 1200 300 425 Balance 225 4864 1613 1541 Weight 52.8 kg 55.4 kg 55.4 kg 55.2 kg Lab Results: Lab Results-Last 24 Hours 09/24/18 09/24/18 Range/Units 05:30 05:30 WBC 7.4 (4.0-10.5) K/mm3 RBC 3.46 L (4.1-5.4) M/mm3 Hgb 10.2 L (12.0-16.0) gm/dl Hct 32.5 L (35-47) % MCV 93.9 (78-100) fl MCH 29.4 (26-32) pg MCHC 31.4 L (32-36) g/dl RDW 13.9 (11.5-14.0) % Plt Count 168 (150-450) K/mm3 MPV 10.3 H (6-9.5) fl Segmented Neutrophils 84 H (36.0-66.0) % Lymphocytes (Manual) 16 L (24-44) % Platelet Estimate NORMAL (NORMAL) RBC Morphology NORMAL Sodium 139 (137-145) mmol/L Potassium 4.2 (3.5-5.1) mmol/L Chloride 106 (98-107) mmol/L Carbon Dioxide 25 (22-30) mmol/L Anion Gap 12.7 (5-15) MEQ/L BUN 19 H (7-17) mg/dL Creatinine 0.78 (0.52-1.04) mg/dL Estimated GFR > 60.0 ML/MIN Glucose 125 H (74-106) mg/dL Calcium 8.5 (8.4-10.2) mg/dL Total Bilirubin 0.40 (0.2-1.3) mg/dL AST 74 H (14-36) U/L ALT 68 H (0-35) U/L Alkaline Phosphatase 75 (38-126) U/L Serum Total Protein 6.6 (6.3-8.2) g/dL Albumin 3.6 (3.5-5.0) g/dL Multi-Disciplinary Progress Notes: Multi-Disciplinary Progress Notes 09/23/18 09:40 (created 09/23/18 10:40) Case Management Note by Viji Allen VISITED WITH PT, FAMILY AT BEDSIDE. CONTINUE TO PLAN FOR PT TO RETURN TO [facility] ON DISCHARGE. DENIES ADDNL NEEDS FOR DISCHARGE. PT REPORTS THAT SHE IS NOT IN A HURRY TO GO BACK TO THE PLACE WHERE "EVERYONE IS SICK". PT REPORTS THAT SHE IS FEELING BETTER, BUT STILL NOT HER NORMAL. WILL FOLLOW FOR ALL DC NEEDS. Initialized on 09/23/18 10:40 - END OF NOTE Assessment/Plan (1) COPD with exacerbation Current Visit: Yes Status: Acute Onset Date: ~09/20/18 Assessment & Plan: continue IV solu medrol, nebs and rocephin/zithromax Code(s): J44.1 - CHRONIC OBSTRUCTIVE PULMONARY DISEASE W (ACUTE) EXACERBATION (2) Right lower lobe pneumonia Current Visit: Yes Status: Acute Onset Date: ~09/20/18 Qualifiers: Pneumonia type: due to unspecified organism Qualified Code(s): J18.1 - Lobar pneumonia, unspecified organism Assessment & Plan: rocephin/zithromax continued Code(s): J18.1 - LOBAR PNEUMONIA, UNSPECIFIED ORGANISM (3) HTN (hypertension) Current Visit: No Status: Chronic Qualifiers: Hypertension type: essential hypertension Qualified Code(s): I10 - Essential (primary) hypertension Assessment & Plan: increase lisinopril from 10 to 20mg daily today Code(s): I10 - ESSENTIAL (PRIMARY) HYPERTENSION (4) DNR (do not resuscitate) Current Visit: Yes Status: Acute Onset Date: ~09/20/18
[2018-09-24] MEDS: Zestril 20 MG PO SCH (09:25)
[2018-09-24] MEDS: APRESOLINE 20 MG/ML INJ IV PRN ×2 (11:51→15:56)
[2018-09-24] MEDS ORDERED: xanAX 0.5 MG PO PRN (16:36)
[2018-09-24] MEDS: ROCEPHIN 1 Gm-D5w 50 ml Bag** 1 G/50 ML IVPB IV SCH (21:05)
[2018-09-24] MEDS: Mirapex 0.5 MG Tablet PO SCH (22:53)
[2018-09-24] MEDS: xanAX 0.5 MG PO SCH (22:54)
[2018-09-24] MEDS: Zithromax 500 MG/ 250 ML NaCl Premix 500 MG/250 ML IVPB IV SCH (22:54)
[2018-09-25] MEDS: Sodium Chloride 0.9% 1000 ML 1,000 ML IV SCH (01:16)
[2018-09-25 05:53] LABS: BASOPHIL % 0.1 % (0.0-0.4); Basophil (Absolute #) 0.01 (0-0.4); Eosinophil (Absolute #) 0 (0-0.5); Granulocyte Absolute (ANC) 6.73 (1.4-6.9); Granulocytes % 87.8 % (36.0-66.0); Hematocrit 33.1 % (35-47); Hemoglobin 10.5 gm/dl (12.0-16.0); Lymphocyte (Absolute #) 0.63 (1.0-4.6); Lymphocytes % 8.2 % (24.0-44.0); Mean Corpuscular Hgb Concent. 31.7 g/dl (32-36); Mean Platelet Volume 10.2 fl (6-9.5); Monocytes % 3.9 % (0.0-12.0); Platelet Count 199 K/mm3 (150-450); Red Blood Count 3.56 M/mm3 (4.1-5.4); Red Cell Distribution Width 13.8 % (11.5-14.0); White Blood Count 7.7 K/mm3 (4.0-10.5)
[2018-09-25] MEDS: solu-MEDROL 125 MG IV SCH ×3 (05:55→22:12)
[2018-09-25 05:56] LABS: Mean Corpuscular Hemoglobin 29.4 pg (26-32)
[2018-09-25 06:13] LABS: ANION GAP 13.9 MEQ/L (5-15); BLOOD UREA NITROGEN 20 mg/dL (7-17); CHLORIDE 105 mmol/L (98-107); Calcium 8.5 mg/dL (8.4-10.2); Carbon Dioxide 25 mmol/L (22-30); Creatinine 1 0.76 mg/dL (0.52-1.04); Glucose 118 mg/dL (74-106); Potassium 4.2 mmol/L (3.5-5.1); SODIUM 140 mmol/L (137-145)
[2018-09-25] MEDS: DUONEB 0.5-3 MG/3 ml Neb IH SCH ×4 (07:30→19:06)
--- NOTE | 2018-09-25 08:20 | PCM.NOTE ---
Date and Time: 09/25/18817 Subjective Assessment: patient reports she is feeling some better, still wheezing and requiring oxygen but feeling less short of breath and cough is improving. Objective Exam General Appearance: no apparent distress, alert Neurologic Exam: alert, oriented x 3 Skin Exam: normal color, warm, dry Respiratory Exam: wheezing Cardiovascular Exam: regular rate/rhythm, normal heart sounds Gastrointestinal/Abdomen Exam: soft, No tenderness, No mass Extremity Exam: normal inspection, normal range of motion OBJECTIVE DATA Vital Signs: Vital Signs - 24 hr Temp Pulse Resp BP Pulse Ox 09/25/18 07:54 97.8 F 67 17 184/73 93 L 09/25/18 07:35 66 22 96 09/25/18 04:00 98.1 F 83 20 128/66 93 L 09/25/18 00:00 98.2 F 72 24 137/68 93 L 09/24/18 20:01 98.8 F 77 22 153/63 93 L 09/24/18 20:00 22 09/24/18 18:51 88 20 94 L 09/24/18 16:28 91 H 140/80 09/24/18 15:55 75 22 94 L 09/24/18 15:48 97.8 F 85 21 175/76 93 L 09/24/18 15:03 94 L 09/24/18 11:29 97.6 F 69 22 194/88 94 L 09/24/18 11:00 61 20 96 09/24/18 08:55 95 Oxygen-Last 24 hours O2 Percentage 2 Liters = 28% O2 Percentage 2 Liters = 28% O2 Percentage 2 Liters = 28% O2 Percentage 2 Liters = 28% O2 Percentage 3 Liters = 32% O2 Percentage 3 Liters = 32% Pain Assessment - Last Documented Pain Intensity 0 Pain Scale Used 0-10 Pain Scale Intake and Output: Intake & Output 09/22/18 09/23/18 09/24/18 09/25/18 11:59 11:59 11:59 11:59 Intake Total 3574 1913 1966 1942 Output Total 1200 300 425 750 Balance 2374 1613 1541 1192 Weight 55.4 kg 55.4 kg 55.2 kg 56.1 kg Lab Results: Lab Results-Last 24 Hours 09/24/18 09/25/18 09/25/18 Range/Units 05:30 05:14 05:14 WBC 7.7 (4.0-10.5) K/mm3 RBC 3.56 L (4.1-5.4) M/mm3 Hgb 10.5 L (12.0-16.0) gm/dl Hct 33.1 L (35-47) % MCV 93.0 (78-100) fl MCH 29.4 (26-32) pg MCHC 31.7 L (32-36) g/dl RDW 13.8 (11.5-14.0) % Plt Count 199 (150-450) K/mm3 MPV 10.2 H (6-9.5) fl Gran % 87.8 H (36.0-66.0) % Eos # (Auto) 0 (0-0.5) Absolute Lymphs (auto) 0.63 L (1.0-4.6) Absolute Monos (auto) 0.30 (0.0-1.3) Lymphocytes % 8.2 L (24.0-44.0) % Monocytes % 3.9 (0.0-12.0) % Eosinophils % 0.0 (0.00-5.0) % Basophils % 0.1 (0.0-0.4) % Absolute Granulocytes 6.73 (1.4-6.9) Segmented Neutrophils 84 H (36.0-66.0) % Lymphocytes (Manual) 16 L (24-44) % Basophils # 0.01 (0-0.4) Platelet Estimate NORMAL (NORMAL) RBC Morphology NORMAL Sodium 140 (137-145) mmol/L Potassium 4.2 (3.5-5.1) mmol/L Chloride 105 (98-107) mmol/L Carbon Dioxide 25 (22-30) mmol/L Anion Gap 13.9 (5-15) MEQ/L BUN 20 H (7-17) mg/dL Creatinine 0.76 (0.52-1.04) mg/dL Estimated GFR > 60.0 ML/MIN Glucose 118 H (74-106) mg/dL Calcium 8.5 (8.4-10.2) mg/dL Multi-Disciplinary Progress Notes: Multi-Disciplinary Progress Notes 09/24/18 10:00 (created 09/24/18 10:06) Case Management Note by Viji Allen VISITED WITH PT, CONTINUES TO PLAN TO RETURN TO [facility] TODAY. DENIES ADDNL NEEDS. WILL FOLLOW FOR ALL DC NEEDS. Initialized on 09/24/18 10:06 - END OF NOTE Assessment/Plan (1) COPD with exacerbation Current Visit: Yes Status: Acute Onset Date: ~09/20/18 Assessment & Plan: continue rocephin/zithromax, IV solu medrol Code(s): J44.1 - CHRONIC OBSTRUCTIVE PULMONARY DISEASE W (ACUTE) EXACERBATION (2) Right lower lobe pneumonia Current Visit: Yes Status: Acute Onset Date: ~09/20/18 Qualifiers: Pneumonia type: due to unspecified organism Qualified Code(s): J18.1 - Lobar pneumonia, unspecified organism Assessment & Plan: continue rocephin/zithromax Code(s): J18.1 - LOBAR PNEUMONIA, UNSPECIFIED ORGANISM (3) HTN (hypertension) Current Visit: No Status: Chronic Qualifiers: Hypertension type: essential hypertension Qualified Code(s): I10 - Essential (primary) hypertension Code(s): I10 - ESSENTIAL (PRIMARY) HYPERTENSION (4) DNR (do not resuscitate) Current Visit: Yes Status: Acute Onset Date: ~09/20/18
[2018-09-25] MEDS: APRESOLINE 20 MG/ML INJ IV PRN ×3 (10:13→23:35)
[2018-09-25] MEDS: ZOLOFT 50 MG TABLET PO SCH (10:16)
[2018-09-25] MEDS: Zestril 20 MG PO SCH (10:16)
[2018-09-25] MEDS: NEURONTIN 300 MG PO SCH ×3 (10:16→22:14)
[2018-09-25] MEDS: BUSPAR 5 MG PO SCH ×2 (10:16→22:15)
[2018-09-25] MEDS: SYNTHROID 88 MCG PO SCH (10:16)
[2018-09-25] MEDS: ENOXAPARIN SODIUM SQ SCH (10:26)
[2018-09-25] MEDS: Zofran 4 MG/2 ML VIAL IV PRN (20:11)
[2018-09-25] MEDS: Zithromax 500 MG/ 250 ML NaCl Premix 500 MG/250 ML IVPB IV SCH (22:11)
[2018-09-25] MEDS: ROCEPHIN 1 Gm-D5w 50 ml Bag** 1 G/50 ML IVPB IV SCH (22:11)
[2018-09-25] MEDS: Mirapex 0.5 MG Tablet PO SCH (22:14)
[2018-09-25] MEDS: xanAX 0.5 MG PO SCH (22:15)
[2018-09-26] MEDS: Sodium Chloride 0.9% 1000 ML 1,000 ML IV SCH (00:54)
[2018-09-26] MEDS: solu-MEDROL 125 MG IV SCH (05:12)
[2018-09-26 05:53] LABS: Basophil (Absolute #) 0 (0-0.4); Eosinophil (Absolute #) 0 (0-0.5); Granulocyte Absolute (ANC) 7.69 (1.4-6.9); Granulocytes % 83.4 % (36.0-66.0); Hematocrit 32.1 % (35-47); Hemoglobin 10.2 gm/dl (12.0-16.0); Lymphocyte (Absolute #) 0.82 (1.0-4.6); Lymphocytes % 8.9 % (24.0-44.0); Mean Cell Volume 93.6 fl (78-100); Mean Corpuscular Hemoglobin 29.7 pg (26-32); Mean Corpuscular Hgb Concent. 31.8 g/dl (32-36); Mean Platelet Volume 10.1 fl (6-9.5); Monocyte (Absolute #) 0.71 (0.0-1.3); Monocytes % 7.7 % (0.0-12.0); Platelet Count 222 K/mm3 (150-450); Red Blood Count 3.43 M/mm3 (4.1-5.4); Red Cell Distribution Width 14.1 % (11.5-14.0); White Blood Count 9.2 K/mm3 (4.0-10.5)
[2018-09-26 06:11] LABS: ANION GAP 13.2 MEQ/L (5-15); BLOOD UREA NITROGEN 21 mg/dL (7-17); CHLORIDE 105 mmol/L (98-107); Calcium 8.5 mg/dL (8.4-10.2); Carbon Dioxide 26 mmol/L (22-30); Creatinine 1 0.76 mg/dL (0.52-1.04); Glucose 115 mg/dL (74-106); Potassium 4.2 mmol/L (3.5-5.1); SODIUM 139 mmol/L (137-145)
[2018-09-26] MEDS: DUONEB 0.5-3 MG/3 ml Neb IH SCH (06:58)
--- NOTE | 2018-09-26 10:46 | PCM.DCORD ---
- Discharge Discharge Date: 09/26/18 Condition: Good Prescriptions: New Prednisone 10 mg [Deltasone 10 mg] 10 mg PO DAILY 9 Days #18 tablet Albuterol/Ipratropium 3ml Neb* [DUONEB 0.5-3 MG/3 ml Neb] 3 ml IH Q4HPRN PRN #180 ampul.neb PRN Reason: Shortness Of Breath/Wheezing Continue Lisinopril 5 mg [Zestril 5 MG] 5 mg PO DAILY Acetaminophen 325 mg [Tylenol 325 mg] 650 mg PO Q4H PRN PRN PRN Reason: pain/fever Hydrocodone Bit/Acetaminophen [[facility] [place] 5-325 Tablet] 1 each PO TID PRN PRN PRN Reason: Pain Gabapentin 600 mg PO TID Buspirone HCl 5 mg [Buspar 5 mg] 5 mg PO BID Sertraline HCl 50 mg [Zoloft 50 mg Tablet] 75 mg PO DAILY Pramipexole Di-HCl [Mirapex] 0.25 mg PO HS Levothyroxine Sodium 88 mcg PO DAILY Alprazolam 0.5 mg [xanAX 0.5 MG] 0.5 mg PO HS Follow up with: DEVEN DAS MD [Primary Care Provider] - 1 Week
[2018-09-26] MEDS: BUSPAR 5 MG PO SCH (10:53)
[2018-09-26] MEDS: NEURONTIN 300 MG PO SCH (10:53)
[2018-09-26] MEDS: ZOLOFT 50 MG TABLET PO SCH (10:53)
[2018-09-26] MEDS: ENOXAPARIN SODIUM SQ SCH (10:53)
[2018-09-26] MEDS: Zestril 20 MG PO SCH (10:54)
[2018-09-26] MEDS: SYNTHROID 88 MCG PO SCH (10:54)
[2018-09-26 13:26] VITALS: BP 161/68; PULSE 76; O2SAT 92
--- NOTE | 2018-09-30 13:27 | DS ---
DISCHARGE DIAGNOSES: 1) ACUTE EXACERBATION OF CHRONIC OBSTRUCTIVE PULMONARY DISEASE. 2) BRONCHOSPASM. HISTORY: The patient is an 87 year-old white female resident of a local assisted who began having problems with increasing shortness of breath. She was noted to be wheezing bilaterally and anteriorly as well. O2 saturations were slightly low. She was admitted to the hospital from the emergency room for IV Solu-Medrol, IV antibiotics and nebulizer treatments. HOSPITAL COURSE: The patient did improve with the above treatments although she still had some very faint wheezes posterior on the left side by the time of discharge on 09/26/2018. We changed her over from Solu-Medrol to prednisone 30 mg for 3 days, 20 mg for 3 days, and 10 mg for 3 days and PRN nebulizer treatments. The patient does not want to have oxygen as she is concerned about her ability to ambulate using the oxygen. The patient will be discharged to continue her usual home medications otherwise presently from [facility] which include Requip 3 mg at night, Synthroid 25 mcg daily, PRN Zofran for nausea, duloxetine 30 mg twice a day, PRN hydrocodone 10/325 mg, lisinopril 5 mg and paroxetine 10 mg. The patient will be followed up by the facility doctor and we will check O2 saturations to see where she is at but presently her oxygen is laying on the floor as she is taking it off and refuses to wear it.
== END 2018-09-26 13:15 | DRG 190 ==
LOC: ED 18:34 → MED SURG 22:13 → OBSVTOIN 09-21 10:00
PROVIDERS: ADMIT Family Medicine; ATTEND Family Medicine
DX: J44.1 Chronic obstructive pulmonary disease with (acute) exacerbation (principal); J18.1 Lobar pneumonia, unspecified organism; J18.9 Pneumonia, unspecified organism; E03.9 Hypothyroidism, unspecified; I10 Essential (primary) hypertension; M19.90 Unspecified osteoarthritis, unspecified site; Z79.899 Other long term (current) drug therapy
CPT/HCPCS: 36000; 36415; 71046; 80048; 80053; 82805; 83880; 84484; 85025; 85379; 87040; 93268; 94150; 94640; 94667; 94668; 94760; 94762; 96360; 96365; 96374; 99285; G0378; J0360; J0456; J0696; J1650; J2405; J2930; A9270-GY

== ENCOUNTER 2018-10-10 19:38 | Observation (INO) | payer MEDICARE ==
[2018-10-10] MEDS ORDERED: Sodium Chloride 0.9% 1000 ML 1,000 ML IV SCH (20:00)
--- NOTE | 2018-10-10 20:02 | ERPHSYRPT ---
- History of Present Illness Time Seen by Provider: 10/10/18 19:52 Source: patient Exam Limitations: no limitations Patient Subjective Stated Complaint: Pt c/o left upper arm pain and leg pain from the hip to the ankle. She also says that her left hand "feels " from neuropathy. She states she has the pain off and on but tonight it was bad and she couldn't move her arm or leg. She did not want to come in but the staff at [facility] "made her". She denies pain when she is lying still. Triage Nursing Assessment: Pt alert and oriented x3. skin pink warm and dry. afebrile. No swelling or bruising noted to left arm or leg. left radial pulse present and regular. left pedal pulse present and regular. expiratory wheezes noted Physician History: 88-year-old white female arrives with complaint of pain in her posterior left leg, pain in both arms worse with movement states her hands feel Patient states she Chronically feels this way however it is worse today. She has no chest pain or shortness of breath. Sent from group home. Past medical history includes cataracts, high blood pressure, pneumonia, hypothyroidism, degenerative disc disease, fractures, osteoarthritis, right foot drop, esophageal disorder Past surgical history includes cholecystectomy, joint replacement, orthopedic surgery, right hip surgery right shoulder surgery right femur surgery Timing/Duration: other (chronic worse today) Severity: moderate Modifying Factors: Improves With: movement, nothing. Worsens With: eating, immobilization, medication, rest, acetaminophen, ibuprofen Associated Symptoms: No nausea, No vomiting, No abdominal pain, No shortness of breath, No heartburn, No diaphoresis, No cough, No chills, No chest pain, No fever, No headaches, No loss of appetite, No malaise, No rash, No syncope, No seizure, No weakness Allergies/Adverse Reactions: Penicillins Allergy (Verified 10/10/18 19:55) codeine Adverse Reaction (Verified 09/20/18 18:48) Nausea Home Medications: Lisinopril 5 mg [Zestril 5 MG] 5 mg PO DAILY 07/25/17 [History] Acetaminophen 325 mg [Tylenol 325 mg] 650 mg PO Q4H PRN PRN 09/21/18 [ History] Alprazolam 0.5 mg [xanAX 0.5 MG] 0.5 mg PO HS 09/21/18 [History] Buspirone HCl 5 mg [Buspar 5 mg] 5 mg PO BID 09/21/18 [History] Hydrocodone Bit/Acetaminophen [[place] 5-325 Tablet] 1 each PO TID PRN PRN [History] Levothyroxine Sodium 88 mcg PO DAILY 09/21/18 [History] Pramipexole Di-HCl [Mirapex] 0.25 mg PO HS 09/21/18 [History] Sertraline HCl 50 mg [Zoloft 50 mg Tablet] 75 mg PO DAILY 09/21/18 [History] Carbamide Peroxide [Debrox] 15 ml OT BID 10/10/18 [History] Gabapentin [Neurontin] 800 mg PO TID 10/10/18 [History] Nutritional Supplement [Ensure] 1 unit PO UD 10/10/18 [History] Omeprazole 20 mg PO DAILY 10/10/18 [History] Hx Tetanus, Diphtheria Vaccination/Date Given: No Hx Influenza Vaccination/Date Given: Yes Hx Pneumococcal Vaccination/Date Given: Yes - Review of Systems Constitutional: No Fever, No Chills Eyes: No Symptoms Ears, Nose, & Throat: No Symptoms Respiratory: No Cough, No Dyspnea Cardiac: No Chest Pain, No Edema, No Syncope Abdominal/Gastrointestinal: No Abdominal Pain, No Nausea, No Vomiting, No Diarrhea Genitourinary Symptoms: No Dysuria Musculoskeletal: Other (left posterior thigh pain. Bilateral arm pain) Skin: No Rash Neurological: No Dizziness, No Focal Weakness, No Sensory Changes Psychological: No Symptoms Endocrine: No Symptoms All Other Systems: Reviewed and Negative - Past Medical History Pertinent Past Medical History: Yes Neurological History: Peripheral Neuropathy ENT History: Cataracts Cardiac History: Hypertension Respiratory History: Pneumonia, Other Endocrine Medical History: Hypothyroidism Musculoskeletal History: Arthritis, Degenerative Disk Disease, Fractures, Osteoarthritis GI Medical History: No Pertinent History, Esophageal Disorder History: No Pertinent History Psycho-Social History: No Pertinent History Female Reproductive Disorders: No Pertinent History Other Medical History: DROP FOOT RT FOOT, Esophageal blockage - Past Surgical History Past Surgical History: Yes Neuro Surgical History: No Pertinent History Cardiac: No Pertinent History Respiratory: No Pertinent History Gastrointestinal: Cholecystectomy Genitourinary: No Pertinent History Musculoskeletal: Joint Replacement, Orthopedic Surgery Female Surgical History: No Pertinent History Other Surgical History: R HIP. , RT SHOULDER. 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 right femur - Social History Smoking Status: Never smoker Exposure to second hand smoke: No Drug Use: none Patient Lives Alone: No - Female History Hx Now: No - Nursing Vital Signs Nursing Vital Signs: Initial Vital Signs Temperature 98.5 F 10/10/18 19:41 Pulse Rate 67 10/10/18 19:41 Respiratory Rate 16 10/10/18 19:41 Blood Pressure 131/98 10/10/18 19:41 O2 Sat by Pulse Oximetry 95 10/10/18 19:41 Pain Scale Pain Intensity 0 - Physical Exam General Appearance: no apparent distress, alert Eye Exam: PERRL/EOMI, eyes nml inspection Ears, Nose, Throat Exam: normal ENT inspection, TMs normal, pharynx normal, moist mucous membranes Neck Exam: normal inspection, non-tender, supple, full range of motion Respiratory Exam: normal breath sounds, lungs clear, No respiratory distress Cardiovascular Exam: regular rate/rhythm, normal heart sounds, normal peripheral pulses Gastrointestinal/Abdomen Exam: soft, normal bowel sounds, No tenderness, No mass Back Exam: normal inspection, normal range of motion, No CVA tenderness, No vertebral tenderness Extremity Exam: normal inspection, normal range of motion, pelvis stable Neurologic Exam: alert, oriented x 3, cooperative, 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, normal mood/affect, nml cerebellar function, nml station & gait, sensation nml, No motor deficits Skin Exam: normal color, warm, dry, No rash Lymphatic Exam: No adenopathy SpO2 Interpretation: normal (95%) SpO2: 95 Oxygen Delivery: Room Air - Course Nursing assessment & vital signs reviewed: Yes EKG Interpreted by Me: RATE (68 bpm), NORMAL AXIS, Other (EKG: Sinus rhythm, 68 bpm, normal axis, no acute ST or T wave changes, compared to September 20, 2018) Ordered Tests: Active Orders 24 hr Category Date Time Status EKG-ER Only STAT Care 10/10/18 19:56 Active IV Insertion STAT Care 10/10/18 19:56 Active CHEST 1 VIEW (PORTABLE) Stat Exams 10/10/18 19:57 Taken CBC W DIFF Stat Lab 10/10/18 20:17 Completed CMP Stat Lab 10/10/18 20:17 Completed D-DIMER QUANTITATION Stat Lab 10/10/18 20:17 Completed PROTIME WITH INR Stat Lab 10/10/18 20:17 Completed PTT Stat Lab 10/10/18 20:17 Completed TROPONIN Q3H Lab 10/10/18 20:17 Completed TROPONIN Q3H Lab 10/10/18 23:00 Ordered TROPONIN Q3H Lab 10/11/18 02:00 Ordered TROPONIN Q3H Lab 10/11/18 05:00 Ordered TROPONIN Q3H Lab 10/11/18 08:00 Ordered Transfer Order Routine Transfer 10/10/18 Ordered Medication Summary Generic Name Dose Route Start Last Admin Trade Name Freq PRN Reason Stop Dose Admin Sodium Chloride 1,000 mls @ 50 mls/hr 10/10/18 20:00 10/10/18 20:08 Sodium Chloride 0.9% 1000 Ml IV 11/09/18 19:59 50 mls/hr .Q20H PACO Administration Discontinued Medications Generic Name Dose Route Start Last Admin Trade Name Freq PRN Reason Stop Dose Admin Enoxaparin Sodium 50 mg 10/10/18 21:56 10/10/18 22:00 Enoxaparin Sodium SQ 10/10/18 21:57 Not Given STAT ONE Lab/Rad Data: Laboratory Result Diagrams 10/10/18 20:17 10/10/18 20:17 Laboratory Results 10/10/18 10/10/18 10/10/18 Range/Units 20:17 20:17 20:17 WBC (4.0-10.5) K/mm3 RBC (4.1-5.4) M/mm3 Hgb (12.0-16.0) gm/dl Hct (35-47) % MCV (78-100) fl MCH (26-32) pg MCHC (32-36) g/dl RDW (11.5-14.0) % Plt Count (150-450) K/mm3 MPV (6-9.5) fl Gran % (36.0-66.0) % Eos # (Auto) (0-0.5) Absolute Lymphs (auto) (1.0-4.6) Absolute Monos (auto) (0.0-1.3) Lymphocytes % (24.0-44.0) % Monocytes % (0.0-12.0) % Eosinophils % (0.00-5.0) % Basophils % (0.0-0.4) % Absolute Granulocytes (1.4-6.9) Basophils # (0-0.4) PT 11.2 (9.95-12.35) SECONDS INR 0.96 (0.8-3.0) APTT 26.2 (25.3-37.0) SECONDS D-Dimer 987 H* (215-500) ng/mL Sodium 135 L (137-145) mmol/L Potassium 5.8 H (3.5-5.1) mmol/L Chloride 100 (98-107) mmol/L Carbon Dioxide 26 (22-30) mmol/L Anion Gap 14.4 (5-15) MEQ/L BUN 30 H (7-17) mg/dL Creatinine 1.25 H (0.52-1.04) mg/dL Estimated GFR 42.9 ML/MIN Glucose 98 (74-106) mg/dL Calcium 8.8 (8.4-10.2) mg/dL Total Bilirubin 0.40 (0.2-1.3) mg/dL AST 27 (14-36) U/L ALT 21 (0-35) U/L Alkaline Phosphatase 74 (38-126) U/L Troponin I < 0.012 (0.000-0.034) ng/mL Serum Total Protein 7.0 (6.3-8.2) g/dL Albumin 3.9 (3.5-5.0) g/dL 10/10/18 Range/Units 20:17 WBC 7.9 (4.0-10.5) K/mm3 RBC 3.46 L (4.1-5.4) M/mm3 Hgb 10.3 L (12.0-16.0) gm/dl Hct 33.5 L (35-47) % MCV 96.8 (78-100) fl MCH 29.7 (26-32) pg MCHC 30.7 L (32-36) g/dl RDW 14.6 H (11.5-14.0) % Plt Count 163 (150-450) K/mm3 MPV 9.3 (6-9.5) fl Gran % 65.1 (36.0-66.0) % Eos # (Auto) 0.19 (0-0.5) Absolute Lymphs (auto) 1.83 (1.0-4.6) Absolute Monos (auto) 0.70 (0.0-1.3) Lymphocytes % 23.2 L (24.0-44.0) % Monocytes % 8.9 (0.0-12.0) % Eosinophils % 2.4 (0.00-5.0) % Basophils % 0.4 (0.0-0.4) % Absolute Granulocytes 5.15 (1.4-6.9) Basophils # 0.03 (0-0.4) PT (9.95-12.35) SECONDS INR (0.8-3.0) APTT (25.3-37.0) SECONDS D-Dimer (215-500) ng/mL Sodium (137-145) mmol/L Potassium (3.5-5.1) mmol/L Chloride (98-107) mmol/L Carbon Dioxide (22-30) mmol/L Anion Gap (5-15) MEQ/L BUN (7-17) mg/dL Creatinine (0.52-1.04) mg/dL Estimated GFR ML/MIN Glucose (74-106) mg/dL Calcium (8.4-10.2) mg/dL Total Bilirubin (0.2-1.3) mg/dL AST (14-36) U/L ALT (0-35) U/L Alkaline Phosphatase (38-126) U/L Troponin I (0.000-0.034) ng/mL Serum Total Protein (6.3-8.2) g/dL Albumin (3.5-5.0) g/dL - Progress Progress: improved Progress Note: 10/10/18 21:46 88-year-old white female arrives with complaints of bilateral arm pain left posterior thigh pain symptoms since today at the group home she states she had pain with movement of her arms and leg. Patient appears to to be stable on arrival vitals are stable patient with an EKG remarkable for sinus rhythm with PVC 68 bpm normal axis no acute ST or T wave changes as compared to previous patient did have an elevated d-dimer of 987 this was 1021 on September 20, 2018 chest x-ray is unremarkable CBC white blood cell 7.9 hemoglobin 10 3 hematocrit 33.5 platelets 163 troponin is within normal limits Patient appears to be stable does not appear to be in acute distress. She is given Tylenol for pain. I will discuss patient's case with Dr. Kahn will place patient on IV normal saline plan on Kayexalate one time dose. Repeat CBC CMP in the morning. 10/10/18 22:03 I had planned on giving the patient Lovenox 1 mg/kg subcutaneously however patient has a note on her group home chart that states she is not to receive nonsteroidal anti-inflammatories or anticoagulants indefinitely. I have discussed this with Dr. Kahn. We will hold Lovenox. - Departure Time of Disposition: 22:04 Departure Disposition: Observation Clinical Impression: Bilateral arm pain, Left thigh pain, Hyperkalemia, increased d-dimer Condition: Fair Critical Care Time: No Referrals: DEVEN DAS MD [Primary Care Provider] -
[2018-10-10 20:24] LABS: BASOPHIL % 0.4 % (0.0-0.4); Basophil (Absolute #) 0.03 (0-0.4); Eosinophil % 2.4 % (0.00-5.0); Eosinophil (Absolute #) 0.19 (0-0.5); Granulocytes % 65.1 % (36.0-66.0); Hematocrit 33.5 % (35-47); Hemoglobin 10.3 gm/dl (12.0-16.0); Lymphocyte (Absolute #) 1.83 (1.0-4.6); Lymphocytes % 23.2 % (24.0-44.0); Mean Cell Volume 96.8 fl (78-100); Mean Corpuscular Hgb Concent. 30.7 g/dl (32-36); Mean Platelet Volume 9.3 fl (6-9.5); Monocytes % 8.9 % (0.0-12.0); Platelet Count 163 K/mm3 (150-450); Red Blood Count 3.46 M/mm3 (4.1-5.4); Red Cell Distribution Width 14.6 % (11.5-14.0); White Blood Count 7.9 K/mm3 (4.0-10.5)
[2018-10-10 20:28] LABS: Mean Corpuscular Hemoglobin 29.7 pg (26-32)
[2018-10-10 20:42] LABS: ALBUMIN 3.9 g/dL (3.5-5.0); ANION GAP 14.4 MEQ/L (5-15); BILIRUBIN,TOTAL 0.4 mg/dL (0.2-1.3); Calcium 8.8 mg/dL (8.4-10.2); Creatinine 1 1.25 mg/dL (0.52-1.04); Potassium 5.8 mmol/L (3.5-5.1)
[2018-10-10 21:03] LABS: INR 0.96 (0.8-3.0); PROTIME 11.2 SECONDS (9.95-12.35)
[2018-10-10 21:06] LABS: PTT 26.2 SECONDS (25.3-37.0)
[2018-10-10] MEDS ORDERED: ENOXAPARIN SODIUM SQ ONE (21:56)
[2018-10-10] MEDS ORDERED: TYLENOL 325 MG PO PRN (22:26)
[2018-10-10] MEDS ORDERED: DUONEB 0.5-3 MG/3 ml Neb IH PRN (22:26)
[2018-10-10] MEDS ORDERED: Kayexylate 15 GM/60 ML PO ONE (22:30)
[2018-10-10] MEDS: Sodium Chloride 0.9% 1000 ML 1,000 ML IV SCH (23:08)
[2018-10-11] MEDS ORDERED: xanAX 0.5 MG PO SCH (00:17)
[2018-10-11] MEDS ORDERED: Mirapex 0.5 MG Tablet PO SCH (00:20)
[2018-10-11] MEDS: NORCO 5/325 MG PO PRN ×2 (00:25→09:38)
[2018-10-11] MEDS: BUSPAR 5 MG PO SCH ×2 (00:25→09:38)
[2018-10-11 06:05] LABS: BASOPHIL % 0.3 % (0.0-0.4); Basophil (Absolute #) 0.02 (0-0.4); Eosinophil (Absolute #) 0.19 (0-0.5); Granulocytes % 58.8 % (36.0-66.0); Hematocrit 31.5 % (35-47); Hemoglobin 9.6 gm/dl (12.0-16.0); Lymphocyte (Absolute #) 1.77 (1.0-4.6); Lymphocytes % 28.1 % (24.0-44.0); Mean Cell Volume 97.2 fl (78-100); Mean Corpuscular Hemoglobin 29.6 pg (26-32); Mean Corpuscular Hgb Concent. 30.5 g/dl (32-36); Mean Platelet Volume 9.3 fl (6-9.5); Monocyte (Absolute #) 0.62 (0.0-1.3); Monocytes % 9.8 % (0.0-12.0); Platelet Count 150 K/mm3 (150-450); Red Blood Count 3.24 M/mm3 (4.1-5.4); Red Cell Distribution Width 14.5 % (11.5-14.0); White Blood Count 6.3 K/mm3 (4.0-10.5)
[2018-10-11 06:21] LABS: ALBUMIN 3.5 g/dL (3.5-5.0); ANION GAP 13.1 MEQ/L (5-15); BILIRUBIN,TOTAL 0.4 mg/dL (0.2-1.3); Calcium 8.4 mg/dL (8.4-10.2); Creatinine 1 1.14 mg/dL (0.52-1.04); Potassium 5.1 mmol/L (3.5-5.1); Total Protein 6.4 g/dL (6.3-8.2)
[2018-10-11] MEDS ORDERED: DUONEB 0.5-3 MG/3 ml Neb IH SCH (07:00)
[2018-10-11] MEDS: Sodium Chloride 0.9% 1000 ML 1,000 ML IV SCH (07:54)
--- NOTE | 2018-10-11 08:18 | XRAY ---
Indication: Pain in arms and legs. Comparison: September 20, 2018. Portable chest unchanged again demonstrating right lung volume loss, right base atelectasis/scarring, osteopenia, bony degenerative changes, old right rib fractures, and old right humerus fracture with intact orthopedic hardware. Remaining heart and lungs unremarkable. No new/acute findings. Impression: Stable nonacute chest with chronic features.
[2018-10-11] MEDS ORDERED: MILK OF MAGNESIA 30 ML PO PRN (10:52)
[2018-10-11] MEDS ORDERED: BENADRYL 25 MG CAPSULE PO PRN (10:52)
[2018-10-11] MEDS ORDERED: ZOLOFT 50 MG TABLET PO SCH (11:00)
[2018-10-11] MEDS ORDERED: Neurontin 400 MG PO SCH (11:00)
[2018-10-11] MEDS ORDERED: Pepcid 20 MG PO SCH (11:00)
[2018-10-11] MEDS: DUONEB 0.5-3 MG/3 ml Neb IH SCH ×2 (11:10→12:42)
[2018-10-11] MEDS ORDERED: SYNTHROID 88 MCG PO SCH (11:15)
[2018-10-11] MEDS ORDERED: Protonix 40MG Tablet PO SCH (11:15)
[2018-10-11 11:18] VITALS: O2SAT 95
--- NOTE | 2018-10-11 11:19 | PCM.SSS ---
History of Present Illness - Chief Complaint Chief Complaint: Bilat. arm pain/hyperkalemia History of Present Illness: is a 88 year old female pt of Dr. Das at [facility] with PMHx of hip and thoracic vertebral fx with resultant gait abnormities and falls, HTN , anxiety, and hypothyroidism who complained of increased LLE pain and LUE pain yesterday. I spoke with the nurse who was concerned about DVT and wanted pt to go to ER so I did order that. In ER, her D-dimer was elevated, although less so than last month when it was checked. She did have a potassium of 5.8 so was admitted for a dose of kayexelate and recheck in the morning. This morning she tells me that yesterday she was having a hard time moving the L leg. She denies any pain this morning. Her potassium is 5.1. She notes that she has much less LE edema since she stopped using so much salt. - Review of Systems Musculoskeletal: Arthralgias, Back Pain, Other (arm pain and leg pain as in HPI) Psychological: Anxiety All Other Systems: Reviewed and Negative Medications & Allergies Home Medications: Home Medication List Alprazolam 0.5 mg [xanAX 0.5 MG] 0.5 mg PO HS 09/21/18 [History Confirmed 10/10/18] Buspirone HCl 5 mg [Buspar 5 mg] 5 mg PO BID 09/21/18 [History Confirmed 10/10/18] Hydrocodone Bit/Acetaminophen [[place] 5-325 Tablet] 1 each PO TID PRN PRN [History Confirmed 10/10/18] Levothyroxine Sodium 88 mcg PO DAILY 09/21/18 [History Confirmed 10/10/18] Pramipexole Di-HCl [Mirapex] 0.25 mg PO HS 09/21/18 [History Confirmed 10/10/18] Sertraline HCl 50 mg [Zoloft 50 mg Tablet] 75 mg PO DAILY 09/21/18 [History Confirmed 10/10/18] Acetaminophen 325 mg [Tylenol 325 mg] 650 mg PO Q4H PRN 10/10/18 [History Confirmed 10/10/18] Albuterol/Ipratropium 3ml Neb* [DUONEB 0.5-3 MG/3 ml Neb] 1 neb NEBULIZE Q4H 10/10/18 [History Confirmed 10/10/18] Carbamide Peroxide [Debrox] 1 ml OT BID 10/10/18 [History Confirmed 10/10/18] Diphenhydramine HCl 25 mg [Benadryl 25 mg Capsule] 1 cap PO Q6H PRN [History Confirmed 10/10/18] Famotidine [Pepcid] 40 mg PO BID 10/10/18 [History Confirmed 10/11/18] Gabapentin [Neurontin] 800 mg PO TID 10/10/18 [History Confirmed 10/10/18] Magnesium Hydroxide 30 ml [Milk of Magnesia 30 ml] 30 ml PO DAILY PRN 09/16 [History Confirmed 10/10/18] Nutritional Supplement [Ensure] 1 unit PO 5XD 10/10/18 [History Confirmed ] Omeprazole 20 mg PO DAILY 10/10/18 [History Confirmed 10/10/18] Amlodipine Besylate 2.5 mg PO DAILY #30 tablet 10/11/18 [Rx] Allergies/Adverse Reactions: Allergies Allergy/AdvReac Type Severity Reaction Status Date / Time Penicillins Allergy Verified 10/10/18 19:55 codeine AdvReac Nausea Verified 10/10/18 22:38 - Past Medical History Past Medical History: Yes Neurological History: Peripheral Neuropathy ENT History: Cataracts Cardiac History: Hypertension Respiratory History: Pneumonia, Other Endocrine Medical History: Hypothyroidism Musculoskelatal History: Arthritis, Degenerative Disk Disease, Fractures, Osteoarthritis GI Medical History: No Pertinent History, Esophageal Disorder History: No Pertinent History Pyscho-Social History: No Pertinent History Reproductive Disorders: No Pertinent History Comment: DROP FOOT RT FOOT, Esophageal blockage - Female History Are you now?: No - Past Surgical History Past Surgical History: Yes Neuro Surgical History: No Pertinent History Cardiac History: No Pertinent History Respiratory Surgery: No Pertinent History GI Surgical History: Cholecystectomy Genitourinary Surgical Hx: No Pertinent History Musculskeletal Surgical Hx: Joint Replacement, Orthopedic Surgery Female Surgical History: No Pertinent History Other Surgical History: R HIP. , RT SHOULDER. 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 right femur - Social History Smoking Status: Never smoker Exposure to second hand smoke: No Alcohol: None Drug Use: none - Physical Exam Vital Signs: Vital Signs - 24 hr Temp Pulse Resp BP Pulse Ox 10/11/18 08:00 98.1 F 76 17 182/76 91 L 10/11/18 04:00 97.9 F 64 16 115/57 93 L 10/11/18 00:00 98.2 F 74 20 150/98 91 L 10/10/18 23:55 67 18 91 L 10/10/18 22:43 98.0 F 68 17 166/90 94 L 10/10/18 22:04 95 10/10/18 21:50 105/63 10/10/18 21:40 69 121/57 94 L 10/10/18 20:50 70 115/56 92 L 10/10/18 20:34 72 16 104/56 93 L 10/10/18 19:41 98.5 F 67 16 131/98 95 General Appearance: no apparent distress, alert Neurologic Exam: oriented x 3, cooperative Eye Exam: eyes nml inspection Ears, Nose, Throat Exam: moist mucous membranes Neck Exam: normal inspection, non-tender, No lymphadenopathy Respiratory Exam: normal breath sounds, lungs clear, No crackles/rales, No rhonchi, No wheezing Cardiovascular Exam: regular rate/rhythm, normal heart sounds, No murmur Gastrointestinal/Abdomen Exam: soft, normal bowel sounds, No tenderness, No distention, No mass, No guarding, No rebound Back Exam: normal inspection, No rash Extremity Exam: normal inspection, other (posterior lower legs nttp bilat), No pedal edema, No swelling Skin Exam: normal color, warm, dry, No rash Results - Labs Lab/Micro Results: Lab Results-Last 24 Hours 10/10/18 10/10/18 10/10/18 Range/Units 20:17 20:17 20:17 WBC 7.9 (4.0-10.5) K/mm3 RBC 3.46 L (4.1-5.4) M/mm3 Hgb 10.3 L (12.0-16.0) gm/dl Hct 33.5 L (35-47) % MCV 96.8 (78-100) fl MCH 29.7 (26-32) pg MCHC 30.7 L (32-36) g/dl RDW 14.6 H (11.5-14.0) % Plt Count 163 (150-450) K/mm3 MPV 9.3 (6-9.5) fl Gran % 65.1 (36.0-66.0) % Eos # (Auto) 0.19 (0-0.5) Absolute Lymphs (auto) 1.83 (1.0-4.6) Absolute Monos (auto) 0.70 (0.0-1.3) Lymphocytes % 23.2 L (24.0-44.0) % Monocytes % 8.9 (0.0-12.0) % Eosinophils % 2.4 (0.00-5.0) % Basophils % 0.4 (0.0-0.4) % Absolute Granulocytes 5.15 (1.4-6.9) Basophils # 0.03 (0-0.4) PT 11.2 (9.95-12.35) SECONDS INR 0.96 (0.8-3.0) APTT 26.2 (25.3-37.0) SECONDS D-Dimer 987 H* (215-500) ng/mL Sodium 135 L (137-145) mmol/L Potassium 5.8 H (3.5-5.1) mmol/L Chloride 100 (98-107) mmol/L Carbon Dioxide 26 (22-30) mmol/L Anion Gap 14.4 (5-15) MEQ/L BUN 30 H (7-17) mg/dL Creatinine 1.25 H (0.52-1.04) mg/dL Estimated GFR 42.9 ML/MIN Glucose 98 (74-106) mg/dL Calcium 8.8 (8.4-10.2) mg/dL Total Bilirubin 0.40 (0.2-1.3) mg/dL AST 27 (14-36) U/L ALT 21 (0-35) U/L Alkaline Phosphatase 74 (38-126) U/L Troponin I (0.000-0.034) ng/mL Serum Total Protein 7.0 (6.3-8.2) g/dL Albumin 3.9 (3.5-5.0) g/dL 10/10/18 10/10/18 10/11/18 Range/Units 20:17 23:30 02:20 WBC (4.0-10.5) K/mm3 RBC (4.1-5.4) M/mm3 Hgb (12.0-16.0) gm/dl Hct (35-47) % MCV (78-100) fl MCH (26-32) pg MCHC (32-36) g/dl RDW (11.5-14.0) % Plt Count (150-450) K/mm3 MPV (6-9.5) fl Gran % (36.0-66.0) % Eos # (Auto) (0-0.5) Absolute Lymphs (auto) (1.0-4.6) Absolute Monos (auto) (0.0-1.3) Lymphocytes % (24.0-44.0) % Monocytes % (0.0-12.0) % Eosinophils % (0.00-5.0) % Basophils % (0.0-0.4) % Absolute Granulocytes (1.4-6.9) Basophils # (0-0.4) PT (9.95-12.35) SECONDS INR (0.8-3.0) APTT (25.3-37.0) SECONDS D-Dimer (215-500) ng/mL Sodium (137-145) mmol/L Potassium (3.5-5.1) mmol/L Chloride (98-107) mmol/L Carbon Dioxide (22-30) mmol/L Anion Gap (5-15) MEQ/L BUN (7-17) mg/dL Creatinine (0.52-1.04) mg/dL Estimated GFR ML/MIN Glucose (74-106) mg/dL Calcium (8.4-10.2) mg/dL Total Bilirubin (0.2-1.3) mg/dL AST (14-36) U/L ALT (0-35) U/L Alkaline Phosphatase (38-126) U/L Troponin I < 0.012 < 0.012 < 0.012 (0.000-0.034) ng/mL Serum Total Protein (6.3-8.2) g/dL Albumin (3.5-5.0) g/dL 10/11/18 10/11/18 10/11/18 Range/Units 05:00 05:00 05:00 WBC 6.3 (4.0-10.5) K/mm3 RBC 3.24 L (4.1-5.4) M/mm3 Hgb 9.6 L (12.0-16.0) gm/dl Hct 31.5 L (35-47) % MCV 97.2 (78-100) fl MCH 29.6 (26-32) pg MCHC 30.5 L (32-36) g/dl RDW 14.5 H (11.5-14.0) % Plt Count 150 (150-450) K/mm3 MPV 9.3 (6-9.5) fl Gran % 58.8 (36.0-66.0) % Eos # (Auto) 0.19 (0-0.5) Absolute Lymphs (auto) 1.77 (1.0-4.6) Absolute Monos (auto) 0.62 (0.0-1.3) Lymphocytes % 28.1 (24.0-44.0) % Monocytes % 9.8 (0.0-12.0) % Eosinophils % 3.0 (0.00-5.0) % Basophils % 0.3 (0.0-0.4) % Absolute Granulocytes 3.71 (1.4-6.9) Basophils # 0.02 (0-0.4) PT (9.95-12.35) SECONDS INR (0.8-3.0) APTT (25.3-37.0) SECONDS D-Dimer (215-500) ng/mL Sodium 139 (137-145) mmol/L Potassium 5.1 (3.5-5.1) mmol/L Chloride 106 (98-107) mmol/L Carbon Dioxide 25 (22-30) mmol/L Anion Gap 13.1 (5-15) MEQ/L BUN 27 H (7-17) mg/dL Creatinine 1.14 H (0.52-1.04) mg/dL Estimated GFR 47.7 ML/MIN Glucose 94 (74-106) mg/dL Calcium 8.4 (8.4-10.2) mg/dL Total Bilirubin 0.40 (0.2-1.3) mg/dL AST 27 (14-36) U/L ALT 19 (0-35) U/L Alkaline Phosphatase 69 (38-126) U/L Troponin I < 0.012 (0.000-0.034) ng/mL Serum Total Protein 6.4 (6.3-8.2) g/dL Albumin 3.5 (3.5-5.0) g/dL 10/11/18 Range/Units 08:00 WBC (4.0-10.5) K/mm3 RBC (4.1-5.4) M/mm3 Hgb (12.0-16.0) gm/dl Hct (35-47) % MCV (78-100) fl MCH (26-32) pg MCHC (32-36) g/dl RDW (11.5-14.0) % Plt Count (150-450) K/mm3 MPV (6-9.5) fl Gran % (36.0-66.0) % Eos # (Auto) (0-0.5) Absolute Lymphs (auto) (1.0-4.6) Absolute Monos (auto) (0.0-1.3) Lymphocytes % (24.0-44.0) % Monocytes % (0.0-12.0) % Eosinophils % (0.00-5.0) % Basophils % (0.0-0.4) % Absolute Granulocytes (1.4-6.9) Basophils # (0-0.4) PT (9.95-12.35) SECONDS INR (0.8-3.0) APTT (25.3-37.0) SECONDS D-Dimer (215-500) ng/mL Sodium (137-145) mmol/L Potassium (3.5-5.1) mmol/L Chloride (98-107) mmol/L Carbon Dioxide (22-30) mmol/L Anion Gap (5-15) MEQ/L BUN (7-17) mg/dL Creatinine (0.52-1.04) mg/dL Estimated GFR ML/MIN Glucose (74-106) mg/dL Calcium (8.4-10.2) mg/dL Total Bilirubin (0.2-1.3) mg/dL AST (14-36) U/L ALT (0-35) U/L Alkaline Phosphatase (38-126) U/L Troponin I < 0.012 (0.000-0.034) ng/mL Serum Total Protein (6.3-8.2) g/dL Albumin (3.5-5.0) g/dL - Radiology Impressions Radiology Exams & Impressions: Radiology Procedures Category Date Time Status CHEST 1 VIEW (PORTABLE) Stat Exams 10/10/18 19:57 Completed - Other Procedures and Tests Respiratory Therapy 10/11/18 00:08 Peak Expiratory Flow Rate ONCE Respiratory Therapy Assessment DAILY Assessment/Plan (1) Left thigh pain Current Visit: Yes Status: Acute Assessment & Plan: Denies this morning. Nontender to palpation. back to LTCF. Code(s): M79.652 - PAIN IN LEFT THIGH (2) Diffuse pain in left upper extremity Current Visit: Yes Status: Resolved Code(s): M79.602 - PAIN IN LEFT ARM (3) Hyperkalemia Current Visit: Yes Status: Acute Code(s): E87.5 - HYPERKALEMIA Hospital Summary - Hospital Course Hospital Course: Pt admitted with exacerbation of LLE and LUE pain - resolved in the a.m. D- dimer was elevated but less so than 1 mo ago when last checked. Denies any CP or SOB. This morning she is denying any pain. Her potassium was elevated to 5.8 on admission - after 1 dose kayexelate and IV fluids it is 5.1 this morning. Changing lisinopril 5mg/d to amlodipine 2.5mg/d and discharging to LTCF. She needs a BMP in 2 days. - Vitals & Intake/Output Vital Signs: Vital Signs Temperature 98.1 F 10/11/18 08:00 Pulse Rate 76 10/11/18 08:00 Respiratory Rate 17 10/11/18 08:00 Blood Pressure 182/76 10/11/18 08:00 O2 Sat by Pulse Oximetry 91 L 10/11/18 08:00 Intake & Output: Intake & Output 10/08/18 10/09/18 10/10/18 10/11/18 11:59 11:59 11:59 11:59 Intake Total 808 Output Total 500 Balance 308 Weight 51.8 kg - Lab Result Diagrams: 10/11/18 05:00 10/11/18 05:00 Lab Results-Last 24 Hrs: Lab Results-Last 24 Hours 10/10/18 10/10/18 10/10/18 Range/Units 20:17 20:17 20:17 WBC 7.9 (4.0-10.5) K/mm3 RBC 3.46 L (4.1-5.4) M/mm3 Hgb 10.3 L (12.0-16.0) gm/dl Hct 33.5 L (35-47) % MCV 96.8 (78-100) fl MCH 29.7 (26-32) pg MCHC 30.7 L (32-36) g/dl RDW 14.6 H (11.5-14.0) % Plt Count 163 (150-450) K/mm3 MPV 9.3 (6-9.5) fl Gran % 65.1 (36.0-66.0) % Eos # (Auto) 0.19 (0-0.5) Absolute Lymphs (auto) 1.83 (1.0-4.6) Absolute Monos (auto) 0.70 (0.0-1.3) Lymphocytes % 23.2 L (24.0-44.0) % Monocytes % 8.9 (0.0-12.0) % Eosinophils % 2.4 (0.00-5.0) % Basophils % 0.4 (0.0-0.4) % Absolute Granulocytes 5.15 (1.4-6.9) Basophils # 0.03 (0-0.4) PT 11.2 (9.95-12.35) SECONDS INR 0.96 (0.8-3.0) APTT 26.2 (25.3-37.0) SECONDS D-Dimer 987 H* (215-500) ng/mL Sodium 135 L (137-145) mmol/L Potassium 5.8 H (3.5-5.1) mmol/L Chloride 100 (98-107) mmol/L Carbon Dioxide 26 (22-30) mmol/L Anion Gap 14.4 (5-15) MEQ/L BUN 30 H (7-17) mg/dL Creatinine 1.25 H (0.52-1.04) mg/dL Estimated GFR 42.9 ML/MIN Glucose 98 (74-106) mg/dL Calcium 8.8 (8.4-10.2) mg/dL Total Bilirubin 0.40 (0.2-1.3) mg/dL AST 27 (14-36) U/L ALT 21 (0-35) U/L Alkaline Phosphatase 74 (38-126) U/L Troponin I (0.000-0.034) ng/mL Serum Total Protein 7.0 (6.3-8.2) g/dL Albumin 3.9 (3.5-5.0) g/dL 10/10/18 10/10/18 10/11/18 Range/Units 20:17 23:30 02:20 WBC (4.0-10.5) K/mm3 RBC (4.1-5.4) M/mm3 Hgb (12.0-16.0) gm/dl Hct (35-47) % MCV (78-100) fl MCH (26-32) pg MCHC (32-36) g/dl RDW (11.5-14.0) % Plt Count (150-450) K/mm3 MPV (6-9.5) fl Gran % (36.0-66.0) % Eos # (Auto) (0-0.5) Absolute Lymphs (auto) (1.0-4.6) Absolute Monos (auto) (0.0-1.3) Lymphocytes % (24.0-44.0) % Monocytes % (0.0-12.0) % Eosinophils % (0.00-5.0) % Basophils % (0.0-0.4) % Absolute Granulocytes (1.4-6.9) Basophils # (0-0.4) PT (9.95-12.35) SECONDS INR (0.8-3.0) APTT (25.3-37.0) SECONDS D-Dimer (215-500) ng/mL Sodium (137-145) mmol/L Potassium (3.5-5.1) mmol/L Chloride (98-107) mmol/L Carbon Dioxide (22-30) mmol/L Anion Gap (5-15) MEQ/L BUN (7-17) mg/dL Creatinine (0.52-1.04) mg/dL Estimated GFR ML/MIN Glucose (74-106) mg/dL Calcium (8.4-10.2) mg/dL Total Bilirubin (0.2-1.3) mg/dL AST (14-36) U/L ALT (0-35) U/L Alkaline Phosphatase (38-126) U/L Troponin I < 0.012 < 0.012 < 0.012 (0.000-0.034) ng/mL Serum Total Protein (6.3-8.2) g/dL Albumin (3.5-5.0) g/dL 10/11/18 10/11/18 10/11/18 Range/Units 05:00 05:00 05:00 WBC 6.3 (4.0-10.5) K/mm3 RBC 3.24 L (4.1-5.4) M/mm3 Hgb 9.6 L (12.0-16.0) gm/dl Hct 31.5 L (35-47) % MCV 97.2 (78-100) fl MCH 29.6 (26-32) pg MCHC 30.5 L (32-36) g/dl RDW 14.5 H (11.5-14.0) % Plt Count 150 (150-450) K/mm3 MPV 9.3 (6-9.5) fl Gran % 58.8 (36.0-66.0) % Eos # (Auto) 0.19 (0-0.5) Absolute Lymphs (auto) 1.77 (1.0-4.6) Absolute Monos (auto) 0.62 (0.0-1.3) Lymphocytes % 28.1 (24.0-44.0) % Monocytes % 9.8 (0.0-12.0) % Eosinophils % 3.0 (0.00-5.0) % Basophils % 0.3 (0.0-0.4) % Absolute Granulocytes 3.71 (1.4-6.9) Basophils # 0.02 (0-0.4) PT (9.95-12.35) SECONDS INR (0.8-3.0) APTT (25.3-37.0) SECONDS D-Dimer (215-500) ng/mL Sodium 139 (137-145) mmol/L Potassium 5.1 (3.5-5.1) mmol/L Chloride 106 (98-107) mmol/L Carbon Dioxide 25 (22-30) mmol/L Anion Gap 13.1 (5-15) MEQ/L BUN 27 H (7-17) mg/dL Creatinine 1.14 H (0.52-1.04) mg/dL Estimated GFR 47.7 ML/MIN Glucose 94 (74-106) mg/dL Calcium 8.4 (8.4-10.2) mg/dL Total Bilirubin 0.40 (0.2-1.3) mg/dL AST 27 (14-36) U/L ALT 19 (0-35) U/L Alkaline Phosphatase 69 (38-126) U/L Troponin I < 0.012 (0.000-0.034) ng/mL Serum Total Protein 6.4 (6.3-8.2) g/dL Albumin 3.5 (3.5-5.0) g/dL 10/11/18 Range/Units 08:00 WBC (4.0-10.5) K/mm3 RBC (4.1-5.4) M/mm3 Hgb (12.0-16.0) gm/dl Hct (35-47) % MCV (78-100) fl MCH (26-32) pg MCHC (32-36) g/dl RDW (11.5-14.0) % Plt Count (150-450) K/mm3 MPV (6-9.5) fl Gran % (36.0-66.0) % Eos # (Auto) (0-0.5) Absolute Lymphs (auto) (1.0-4.6) Absolute Monos (auto) (0.0-1.3) Lymphocytes % (24.0-44.0) % Monocytes % (0.0-12.0) % Eosinophils % (0.00-5.0) % Basophils % (0.0-0.4) % Absolute Granulocytes (1.4-6.9) Basophils # (0-0.4) PT (9.95-12.35) SECONDS INR (0.8-3.0) APTT (25.3-37.0) SECONDS D-Dimer (215-500) ng/mL Sodium (137-145) mmol/L Potassium (3.5-5.1) mmol/L Chloride (98-107) mmol/L Carbon Dioxide (22-30) mmol/L Anion Gap (5-15) MEQ/L BUN (7-17) mg/dL Creatinine (0.52-1.04) mg/dL Estimated GFR ML/MIN Glucose (74-106) mg/dL Calcium (8.4-10.2) mg/dL Total Bilirubin (0.2-1.3) mg/dL AST (14-36) U/L ALT (0-35) U/L Alkaline Phosphatase (38-126) U/L Troponin I < 0.012 (0.000-0.034) ng/mL Serum Total Protein (6.3-8.2) g/dL Albumin (3.5-5.0) g/dL - Radiology Exams Ordered Rad Exams-Entire Visit: Radiology Procedures Category Date Time Status CHEST 1 VIEW (PORTABLE) Stat Exams 10/10/18 19:57 Completed - Procedures and Test Procedures and Tests throughout Hospitalization: Therapy Orders & Screens 10/10/18 22:26 Respiratory Therapy Consult ROUTINE Comment: Reason For Exam: 10/11/18 00:08 Peak Expiratory Flow Rate ONCE Comment: Reason For Exam: Diagnosis: Bilat. arm pain/hyperkalemia Respiratory Therapy Assessment DAILY Comment: Diagnosis: Bilat. arm pain/hyperkalemia 10/11/18 10:00 OT Screen per Nursing Assess ONCE Comment: Protocol Order Physician Instructions: Greater than 3 points order OT Admission Screening Reason For Exam: Triggered on Admission Diagnosis: Bilat. arm pain/hyperkalemia Open Wound/Cellutlitis/Pressure Ulcers: No Acute Fx/ORIF/Change in wt bearing status: No Severe MUSCULOSKELETAL pain: No ADL Dysfunction: Yes Acute CVA w/Hemiparesis/Hemiplegia: No Decreased Functional Mobility/Strength: Yes Sprain/Strain: No Acute Post-op Mobility Dysfunction: No Total Points: 4 PT Screen per Nursing Assess ONCE Comment: Protocol Order Physician Instructions: Greater than 3 points order PT Admission Screenin Reason For Exam: Triggered on Admission Diagnosis: Bilat. arm pain/hyperkalemia Open Wound/Cellutlitis/Pressure Ulcers: No Acute Fx/ORIF/Change in wt bearing status: No Severe MUSCULOSKELETAL pain: No ADL Dysfunction: Yes Acute CVA w/Hemiparesis/Hemiplegia: No Decreased Functional Mobility/Strength: Yes Sprain/Strain: No Acute Post-op Mobility Dysfunction: No Total Points: 4 - Discharge Disposition: Skilled Care @ [facility] Condition: Good Prescriptions: New Amlodipine Besylate 2.5 mg PO DAILY #30 tablet Continue Hydrocodone Bit/Acetaminophen [[place] 5-325 Tablet] 1 each PO TID PRN PRN PRN Reason: Pain Buspirone HCl 5 mg [Buspar 5 mg] 5 mg PO BID Sertraline HCl 50 mg [Zoloft 50 mg Tablet] 75 mg PO DAILY Pramipexole Di-HCl [Mirapex] 0.25 mg PO HS Levothyroxine Sodium 88 mcg PO DAILY Alprazolam 0.5 mg [xanAX 0.5 MG] 0.5 mg PO HS Gabapentin [Neurontin] 800 mg PO TID Carbamide Peroxide [Debrox] 1 ml OT BID Omeprazole 20 mg PO DAILY Nutritional Supplement [Ensure] 1 unit PO 5XD Famotidine [Pepcid] 40 mg PO BID Magnesium Hydroxide 30 ml [Milk of Magnesia 30 ml] 30 ml PO DAILY PRN PRN Reason: Constipation Diphenhydramine HCl 25 mg [Benadryl 25 mg Capsule] 1 cap PO Q6H PRN PRN Reason: Itching Acetaminophen 325 mg [Tylenol 325 mg] 650 mg PO Q4H PRN PRN Reason: Pain Albuterol/Ipratropium 3ml Neb* [DUONEB 0.5-3 MG/3 ml Neb] 1 neb NEBULIZE Q4H Discontinued Lisinopril 5 mg [Zestril 5 MG] 5 mg PO DAILY Follow up with: DEVEN DAS MD [Primary Care Provider] - 1 Week
[2018-10-11 13:56] VITALS: BP 177/74; PULSE 70
[2018-10-11] MEDS ORDERED: NON-FORMULARY ITEM (Gabapentin [Neurontin] 800 MG) PO SCH (15:00)
[2018-10-12] MEDS ORDERED: NON-FORMULARY ITEM (Omeprazole [Omeprazole] 20 MG) PO SCH (10:00)
[2018-10-12] MEDS ORDERED: Ear Wax Drops OT SCH (10:00)
== END 2018-10-11 13:27 ==
LOC: ED 19:38 → MED SURG 22:20
PROVIDERS: ADMIT Family Medicine; ATTEND Family Medicine
DX: M79.652 Pain in left thigh (principal); M79.602 Pain in left arm; E87.5 Hyperkalemia
CPT/HCPCS: 36000; 36415; 71045; 80053; 84484; 85025; 85379; 85610; 85730; 93005; 93268; 94150; 94640; 94762; 96360; 96361; 99285; G0378; 94760; J1650; A9270-GY

== ENCOUNTER 2018-10-17 00:07 | Emergency (ER) | payer MEDICARE ==
--- NOTE | 2018-10-17 01:06 | ERPHSYRPT ---
- History of Present Illness Time Seen by Provider: 10/17/18 01:01 Source: patient, EMS Patient Subjective Stated Complaint: pt is alert and oriented. pt brought in via ambulance. pt comes in with c/o left groin pain. no redness, edema noted to area. is not tender to palpation. pt states no pain with no movemnt but 10/10 with movement. pt pedal pulses equal and strong. no bladdar distention. pt denies difficulty urinating. pt states that the pain is muscular pain and worse after rehab. pain has been occuring for 10 days. Triage Nursing Assessment: see above Physician History: The patient is an 88-year-old female brought in by ambulance from a local long term where she has had left upper thigh and left groin pain for 10 days. She takes physical therapy just to help her with her daily routine. Her leg is been hurting for the last 10 days especially after physical therapy. She denies any trauma. She is able to walk but was more weight on her right leg. Her past medical history is significant for HTN, hypothyroidism, GERD. Method of Injury: unknown Occurred: days ago (10) Quality: intermittent, sharpness Severity of Pain-Max: moderate Severity of Pain-Current: mild Lower Extremities Pain: hip: left Modifying Factors: Improves With: nothing Associated Symptoms: none Allergies/Adverse Reactions: Penicillins Allergy (Verified 10/10/18 19:55) codeine Adverse Reaction (Verified 10/10/18 22:38) Nausea Home Medications: Alprazolam 0.5 mg [xanAX 0.5 MG] 0.5 mg PO HS 09/21/18 [History] Buspirone HCl 5 mg [Buspar 5 mg] 5 mg PO BID 09/21/18 [History] Hydrocodone Bit/Acetaminophen [[place] 5-325 Tablet] 1 each PO TID PRN PRN [History] Levothyroxine Sodium 88 mcg PO DAILY 09/21/18 [History] Pramipexole Di-HCl [Mirapex] 0.25 mg PO HS 09/21/18 [History] Sertraline HCl 50 mg [Zoloft 50 mg Tablet] 75 mg PO DAILY 09/21/18 [History] Acetaminophen 325 mg [Tylenol 325 mg] 650 mg PO Q4H PRN 10/10/18 [History] Albuterol/Ipratropium 3ml Neb* [DUONEB 0.5-3 MG/3 ml Neb] 1 neb NEBULIZE Q4H 10/10/18 [History] Carbamide Peroxide [Debrox] 1 ml OT BID 10/10/18 [History] Diphenhydramine HCl 25 mg [Benadryl 25 mg Capsule] 1 cap PO Q6H PRN [History] Famotidine [Pepcid] 40 mg PO BID 10/10/18 [History] Gabapentin [Neurontin] 800 mg PO TID 10/10/18 [History] Magnesium Hydroxide 30 ml [Milk of Magnesia 30 ml] 30 ml PO DAILY PRN 09/16 [History] Nutritional Supplement [Ensure] 1 unit PO 5XD 10/10/18 [History] Omeprazole 20 mg PO DAILY 10/10/18 [History] Hx Tetanus, Diphtheria Vaccination/Date Given: No Hx Influenza Vaccination/Date Given: Yes Hx Pneumococcal Vaccination/Date Given: Yes Immunizations Up to Date: Yes - Review of Systems Constitutional: No Fever, No Chills Eyes: No Symptoms Ears, Nose, & Throat: No Symptoms Respiratory: No Cough, No Dyspnea Cardiac: No Chest Pain, No Edema, No Syncope Abdominal/Gastrointestinal: No Abdominal Pain, No Nausea, No Vomiting, No Diarrhea Genitourinary Symptoms: No Dysuria Musculoskeletal: Injury Skin: No Rash Neurological: No Dizziness, No Focal Weakness, No Sensory Changes Psychological: No Symptoms Endocrine: No Symptoms Hematologic/Lymphatic: No Symptoms Immunological/Allergic: No Symptoms All Other Systems: Reviewed and Negative - Past Medical History Pertinent Past Medical History: Yes Neurological History: Peripheral Neuropathy ENT History: Cataracts Cardiac History: Hypertension Respiratory History: Pneumonia, Other Endocrine Medical History: Hypothyroidism Musculoskeletal History: Arthritis, Degenerative Disk Disease, Fractures, Osteoarthritis GI Medical History: No Pertinent History, Esophageal Disorder History: No Pertinent History Psycho-Social History: No Pertinent History Female Reproductive Disorders: No Pertinent History Other Medical History: DROP FOOT RT FOOT, Esophageal blockage - Past Surgical History Past Surgical History: Yes Neuro Surgical History: No Pertinent History Cardiac: No Pertinent History Respiratory: No Pertinent History Gastrointestinal: Cholecystectomy Genitourinary: No Pertinent History Musculoskeletal: Joint Replacement, Orthopedic Surgery Female Surgical History: No Pertinent History Other Surgical History: R HIP. , RT SHOULDER. 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 right femur - Social History Smoking Status: Never smoker Exposure to second hand smoke: No Drug Use: none Patient Lives Alone: No - Female History Hx Now: No - Nursing Vital Signs Nursing Vital Signs: Initial Vital Signs Pulse Rate 72 10/17/18 00:08 Respiratory Rate 18 10/17/18 00:08 Blood Pressure 153/106 10/17/18 00:08 O2 Sat by Pulse Oximetry 95 10/17/18 00:08 Pain Scale Pain Intensity 0 - Physical Exam General Appearance: alert Eyes, Ears, Nose, Throat Exam: moist mucous membranes Neck Exam: non-tender, supple Cardiovascular/Respiratory Exam: chest non-tender, normal breath sounds, regular rate/rhythm, no respiratory distress Gastrointestinal/Abdominal Exam: non-tender, guarding Back Exam: normal inspection, No vertebral tenderness Hips Exam: bilateral: normal inspection Legs Exam: right leg: normal inspection, left leg: limited range of motion, pain (With resisted movement of the patient trying to bring her knees together, there is pain in the left groin radiating down the sartorius muscle.), soft tissue tenderness Knees Exam: bilateral knee: normal inspection Ankle Exam: bilateral ankle: normal inspection Foot Exam: bilateral foot: normal inspection Neuro/Tendon Exam: normal sensation, normal motor functions Mental Status Exam: alert, oriented x 3, cooperative Skin Exam: normal color, warm, dry SpO2 Interpretation: normal SpO2: 95 O2 Delivery: Room Air - Radiology Exams Left Hip X-ray Interpretation: Reviewed by me, Teleradiologist Report (per Dr Em), No Fracture Pelvis X-ray Interpretation: Reviewed by me, Teleradiologist Report (per Dr Em), No Fracture Ordered Tests: Active Orders 24 hr Category Date Time Status HIP UNI (2V) INCL PEL IF DONE Stat Exams 10/17/18 01:05 Taken - Progress Progress: improved Counseled pt/family regarding: rad results - Departure Time of Disposition: 03:13 Departure Disposition: Home Clinical Impression: Left groin pain Condition: Stable Critical Care Time: No Referrals: DEVEN DAS MD [Primary Care Provider] - Additional Instructions: You have left groin pain that likely is a muscle strain. The x-ray of your left hip and pelvis did not show any fractures. Take Tylenol 1000 mg every 6-8 hours as needed. Follow-up with your primary medical doctor.
[2018-10-17 04:07] VITALS: BP 117/48; PULSE 68; O2SAT 93
--- NOTE | 2018-10-17 09:38 | XRAY ---
Indication: Hip pain following physical therapy. Comparison: Right hip exam August 12, 2017. 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 Mild degenerative changes of the left hip. No other bony, articular, or soft tissue abnormalities. Comment: Preliminary interpretation was made by [facility]. No critical discrepancy.
== END 2018-10-17 04:37 | disposition home or self-care (01) ==
LOC: ED 00:07
DX: R10.32 Left lower quadrant pain (principal); S39.011A Strain of muscle, fascia and tendon of abdomen, initial encounter; I10 Essential (primary) hypertension; E03.9 Hypothyroidism, unspecified; G62.9 Polyneuropathy, unspecified; M19.90 Unspecified osteoarthritis, unspecified site; Z85.828 Personal history of other malignant neoplasm of skin; Z79.899 Other long term (current) drug therapy
CPT/HCPCS: 73502; 99283

== ENCOUNTER 2019-04-01 11:09 | Emergency (ER) | payer MEDICARE ==
--- NOTE | 2019-04-01 11:35 | ERPHSYRPT ---
- History of Present Illness Time Seen by Provider: 04/01/19 11:20 Source: patient Exam Limitations: no limitations Patient Subjective Stated Complaint: Pt states "I was here last week. I slid out of a chair and they gave me a cortizone shot in that leg and now when I get up or move, my left hip really hurts.:" Triage Nursing Assessment: Pt presented via scat and placed in room 4. Pt presented alert and oriented X 3, skin pwd. Pt able to speak in clear full sentences. Pt in no apparent respiratory distress. PT has no bruising, no swelling, no tenderness noted to that let hip Physician History: 88 y/o white female resident of [facility], presents with persistent left hip pain since her fall 03/23/19. pt underwent an xray of left hip which was negative for acute process. pt has had a steroid injection. pain not improved. no second fall. Occurred: other (2 weeks ago) Reason for Fall: slipped (out of chair) Injuries/Pain Location: pelvis (left hip) Loss of Consciousness: no loss of consciousness Severity of Pain-Max: moderate Severity of Pain-Current: moderate (with movement) Modifying Factors: Improves With: movement Associated Symptoms (Fall): denies symptoms Allergies/Adverse Reactions: Penicillins Allergy (Verified 10/10/18 19:55) codeine Adverse Reaction (Verified 10/10/18 22:38) Nausea Home Medications: Alprazolam 0.5 mg [xanAX 0.5 MG] 0.5 mg PO HS 09/21/18 [History] Buspirone HCl 5 mg [Buspar 5 mg] 5 mg PO BID 09/21/18 [History] Hydrocodone Bit/Acetaminophen [[place] 5-325 Tablet] 1 each PO TID PRN PRN [History] Levothyroxine Sodium 88 mcg PO DAILY 09/21/18 [History] Pramipexole Di-HCl [Mirapex] 0.25 mg PO HS 09/21/18 [History] Sertraline HCl 50 mg [Zoloft 50 mg Tablet] 75 mg PO DAILY 09/21/18 [History] Acetaminophen 325 mg [Tylenol 325 mg] 650 mg PO Q4H PRN 10/10/18 [History] Albuterol/Ipratropium 3ml Neb* [DUONEB 0.5-3 MG/3 ml Neb] 1 neb NEBULIZE Q4H 10/10/18 [History] Carbamide Peroxide [Debrox] 1 ml OT BID 10/10/18 [History] Diphenhydramine HCl 25 mg [Benadryl 25 mg Capsule] 1 cap PO Q6H PRN [History] Famotidine [Pepcid] 40 mg PO BID 10/10/18 [History] Gabapentin [Neurontin] 800 mg PO TID 10/10/18 [History] Magnesium Hydroxide 30 ml [Milk of Magnesia 30 ml] 30 ml PO DAILY PRN 09/16 [History] Nutritional Supplement [Ensure] 1 unit PO 5XD 10/10/18 [History] Omeprazole 20 mg PO DAILY 10/10/18 [History] Hx Tetanus, Diphtheria Vaccination/Date Given: Yes Hx Influenza Vaccination/Date Given: Yes Hx Pneumococcal Vaccination/Date Given: Yes Immunizations Up to Date: Yes - Review of Systems Constitutional: No Symptoms Eyes: No Symptoms Ears, Nose, & Throat: No Symptoms Respiratory: No Symptoms Cardiac: No Symptoms Abdominal/Gastrointestinal: No Symptoms Genitourinary Symptoms: No Symptoms Musculoskeletal: Other (left hip pain) Skin: No Symptoms Neurological: No Symptoms Psychological: No Symptoms Endocrine: No Symptoms Hematologic/Lymphatic: No Symptoms Immunological/Allergic: No Symptoms All Other Systems: Reviewed and Negative - Past Medical History Pertinent Past Medical History: Yes Neurological History: Peripheral Neuropathy ENT History: Cataracts Cardiac History: Hypertension Respiratory History: Pneumonia, Other Endocrine Medical History: Hypothyroidism Musculoskeletal History: Arthritis, Degenerative Disk Disease, Fractures, Osteoarthritis GI Medical History: No Pertinent History, Esophageal Disorder History: No Pertinent History Psycho-Social History: No Pertinent History Female Reproductive Disorders: No Pertinent History Other Medical History: DROP FOOT RT FOOT, Esophageal blockage - Past Surgical History Past Surgical History: Yes Neuro Surgical History: No Pertinent History Cardiac: No Pertinent History Respiratory: No Pertinent History Gastrointestinal: Cholecystectomy Genitourinary: No Pertinent History Musculoskeletal: Joint Replacement, Orthopedic Surgery Female Surgical History: No Pertinent History Other Surgical History: R HIP. , RT SHOULDER. 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 right femur - Social History Smoking Status: Never smoker Exposure to second hand smoke: No Drug Use: none Patient Lives Alone: No - Female History Hx Now: No - Nursing Vital Signs Nursing Vital Signs: Initial Vital Signs Temperature 98.8 F 04/01/19 11:14 Pulse Rate 65 04/01/19 11:14 Respiratory Rate 18 04/01/19 11:14 Blood Pressure 179/63 04/01/19 11:14 O2 Sat by Pulse Oximetry 99 04/01/19 11:14 Pain Scale Pain Intensity [Left Hip] 6 Pain Intensity 0 - [place] Coma Score Best Eye Response ([place]): (4) open spontaneously Best Verbal Response ([place]): (5) oriented Best Motor Response ([place]): (6) obeys commands [place] Total: 15 - Physical Exam General Appearance: no apparent distress, alert, anxiety Head Injury: no evidence of injury Eye Exam: PERRL/EOMI, eyes nml inspection ENT Exam: airway nml, nml ext.inspection Neck Exam: supple, trachea midline, full range of motion, normal alignment Respiratory/Chest Exam: No chest tenderness, No respiratory distress Gastrointestinal Exam: No tenderness Rectal Exam: not done Back Exam: normal inspection, normal range of motion, No CVA tenderness, No vertebral tenderness Extremity Exam: hip tenderness (left), other (tenderness of left pubic ramus) Neurologic Exam: alert, oriented x 3, cooperative, appointment coordinator II-XII nml as tested, normal mood/affect Skin Exam: normal color, warm, dry SpO2 Interpretation: normal SpO2: 99 O2 Delivery: Room Air - Course Nursing assessment & vital signs reviewed: Yes Ordered Tests: Active Orders 24 hr Category Date Time Status PELVIS WITHOUT CONTRAST [CT] Routine Exams 04/01/19 11:49 Taken - Progress Progress: unchanged Progress Note: 04/01/19 13:46 ct left hip-left femoral neck fx. we contacted [facility] auto accept center. after reviewing pt hx, condition and xray findings with them, they in turn contacted dr. heath in their emergency dept and reviewed same including pt not allowing us to place a wise cath. additionally, we had not obtained ekg or lab work. i offered to obtain those studies. transfer center stated no need to perform these preop studies. Counseled pt/family regarding: diagnosis, need for follow-up, rad results - Departure Departure Disposition: Transfer Clinical Impression: Closed left femoral fracture Condition: Stable Critical Care Time: No Referrals: JIMI CASE [Primary Care Provider] -
[2019-04-01 14:15] VITALS: BP 170/98; PULSE 72; O2SAT 98
--- NOTE | 2019-04-01 21:18 | XRAY ---
Indication: Left hip pain 2 days. No known injury. Multiple contiguous axial images obtained through the pelvis with special attention to the osseous structures. Two-dimensional sagittal and coronal reformatted images obtained. Comparison: None. There is a pelvic radiograph dated October 17, 2018. Left femur demonstrates new subcapital impacted acute fracture with mild angulation. Elsewhere stable osteopenia, total right hip arthroplasty with intact bipolar prosthesis, lower lumbar degenerative spondylosis, old bilateral pubic bone fractures, and scattered vascular calcifications. Incidental moderate colonic fecal debris including rectal vault. Small right inguinal hernia with loop of small bowel herniating. Additional midline ventral hernia at the level of the umbilicus at least 5 cm in diameter with herniated omental fat and loop of colon. Remaining visualized noncontrasted soft tissues unremarkable. Impression: 1. New left femur subcapital fracture as detailed. 2. Incidental fecal stasis/rectal impaction, ventral hernia, and right inguinal hernia. 3. Osteopenia, total right hip arthroplasty, old bilateral pubic bone fractures, and lower lumbar degenerative spondylosis. Comment: Preliminary interpretation was made by [facility]. No discrepancy. CTDI 20.74
== END 2019-04-01 14:51 | disposition short-term general hospital (02) ==
LOC: ED 11:09
DX: S72.92XA Unspecified fracture of left femur, initial encounter for closed fracture (principal); M25.552 Pain in left hip; W17.89XS Other fall from one level to another, sequela; I10 Essential (primary) hypertension; G62.9 Polyneuropathy, unspecified; M19.90 Unspecified osteoarthritis, unspecified site; Z79.899 Other long term (current) drug therapy
CPT/HCPCS: 72192; 99284; 99285